=== PATIENT | male | born 1950 | race Caucasian/White ===

== ENCOUNTER 2017-03-03 09:21 | Outpatient (CLI) | payer MEDICARE, SELFPAY | END 2017-03-03 11:36 | PROVIDERS: Family Provider Emergency Medicine; Visit Provider Physician Assistant | DX: Z79.01 Long term (current) use of anticoagulants (principal); I48.91 Unspecified atrial fibrillation; Z51.81 Encounter for therapeutic drug level monitoring | CPT/HCPCS: 85610; 99211; G0463 ==

== ENCOUNTER → 2017-03-09 | Outpatient (CLI) | payer MEDICARE, SELFPAY | PROVIDERS: Visit Provider Internal Medicine | DX: I48.91 Unspecified atrial fibrillation (principal); J44.9 Chronic obstructive pulmonary disease, unspecified; I11.9 Hypertensive heart disease without heart failure; Z72.0 Tobacco use | CPT/HCPCS: 36415; 80048 ==

== ENCOUNTER → 2017-04-10 07:47 | Outpatient (CLI) | payer MEDICARE, SELFPAY ==
[2017-04-10 09:08] LABS: Anion Gap 16.4 mEq/L (5-15); Blood Urea Nitrogen 13 mg/dL (7-18); Carbon Dioxide 27 mmol/L (21.0-32.0); Chloride 102 mmol/L (98-107); Estimated Glomerular Filt Rate 84 ml/min (>60); GFR (African American) 102 ML/MIN (>60); Glucose 96 mg/dL (74-106); Potassium 3.4 mmoL/L (3.5-5.1); Sodium 142 mmol/L (136-145)
== END ==
PROVIDERS: Visit Provider Internal Medicine
DX: R06.02 Shortness of breath (principal); E87.6 Hypokalemia; I48.91 Unspecified atrial fibrillation
CPT/HCPCS: 36415; 80048; 83880

== ENCOUNTER → 2017-04-12 15:21 | Outpatient (CLI) | payer MEDICARE, SELFPAY ==
[2017-04-12 16:23] LABS: PHA INR Fingerstick 2.1 (0.9-1.1)
== END | disposition home or self-care (01) ==
PROVIDERS: Family Provider Emergency Medicine; PCP Physician Assistant; Visit Provider Physician Assistant
DX: Z79.01 Long term (current) use of anticoagulants (principal); I48.91 Unspecified atrial fibrillation; Z51.81 Encounter for therapeutic drug level monitoring
CPT/HCPCS: 85610; 99211; G0463

== ENCOUNTER → 2017-04-19 10:55 | Outpatient (CLI) | payer MEDICARE, SELFPAY ==
[2017-04-19 11:30] LABS: INR 1.24 (0.9-1.1); Prothrombin Time 13.4 seconds (9.4-11.8)
[2017-04-19 13:08] LABS: Thyroid Stimulating Hormone 2.75 uIU/ml (0.358-3.740)
[2017-04-19 13:37] LABS: Anion Gap 16.3 mEq/L (5-15); Blood Urea Nitrogen 16 mg/dL (7-18); Carbon Dioxide 29 mmol/L (21.0-32.0); Chloride 98 mmol/L (98-107); Creatinine,Serum 1.01 mg/dL (0.70-1.30); Estimated Glomerular Filt Rate 74 ml/min (>60); GFR (African American) 89 ML/MIN (>60); Potassium 3.3 mmoL/L (3.5-5.1); Sodium 140 mmol/L (136-145)
[2017-04-19 13:38] LABS: Glucose 96 mg/dL (74-106)
== END ==
PROVIDERS: Physician Assistant; Family Provider Emergency Medicine; PCP Physician Assistant; Referring Provider Otolaryngology; Visit Provider Internal Medicine
DX: Z79.01 Long term (current) use of anticoagulants (principal); Z51.81 Encounter for therapeutic drug level monitoring; E03.9 Hypothyroidism, unspecified
CPT/HCPCS: 36415; 80048; 84439; 84443; 85610; 85730

== ENCOUNTER → 2017-05-03 08:30 | Outpatient (CLI) | payer MEDICARE, SELFPAY ==
[2017-05-03 10:39] LABS: Anion Gap 12.6 mEq/L (5-15); Blood Urea Nitrogen 15 mg/dL (7-18); Carbon Dioxide 31 mmol/L (21.0-32.0); Chloride 100 mmol/L (98-107); Creatinine,Serum 1.04 mg/dL (0.70-1.30); Estimated Glomerular Filt Rate 71 ml/min (>60); GFR (African American) 86 ML/MIN (>60); Glucose 93 mg/dL (74-106); Magnesium 1.8 mg/dL (1.4-2.2); Potassium 3.6 mmoL/L (3.5-5.1); Sodium 140 mmol/L (136-145)
== END ==
PROVIDERS: Family Provider Emergency Medicine; PCP Physician Assistant; Visit Provider Physician Assistant
DX: I48.91 Unspecified atrial fibrillation (principal); J44.9 Chronic obstructive pulmonary disease, unspecified; I25.10 Atherosclerotic heart disease of native coronary artery without angina pectoris; I11.9 Hypertensive heart disease without heart failure; Z95.5 Presence of coronary angioplasty implant and graft; F17.200 Nicotine dependence, unspecified, uncomplicated; G25.81 Restless legs syndrome
CPT/HCPCS: 36415; 80048; 83735

== ENCOUNTER 2017-05-15 14:55 | Outpatient (CLI) | payer MEDICARE, SELFPAY ==
[2017-05-15 15:29] LABS: PHA INR Fingerstick 1.7 (0.9-1.1)
== END 2017-05-15 15:57 | disposition home or self-care (01) ==
LOC: ACC 14:56
PROVIDERS: Family Provider Emergency Medicine; PCP Physician Assistant; Visit Provider Internal Medicine
DX: Z79.01 Long term (current) use of anticoagulants (principal); Z51.81 Encounter for therapeutic drug level monitoring; I48.91 Unspecified atrial fibrillation
CPT/HCPCS: 85610; 99211; G0463

== ENCOUNTER 2017-06-12 15:23 | Outpatient (CLI) | payer MEDICARE, SELFPAY ==
[2017-06-12 16:27] LABS: PHA INR Fingerstick 2.4 (0.9-1.1)
== END 2017-06-12 16:35 | disposition home or self-care (01) ==
LOC: ACC 15:24
PROVIDERS: Family Provider Emergency Medicine; PCP Physician Assistant; Visit Provider Internal Medicine
DX: Z79.01 Long term (current) use of anticoagulants (principal); Z51.81 Encounter for therapeutic drug level monitoring; I48.91 Unspecified atrial fibrillation
CPT/HCPCS: 85610; 99211; G0463

== ENCOUNTER → 2017-07-20 08:24 | Outpatient (CLI) | payer MEDICARE, SELFPAY ==
[2017-07-20 12:18] LABS: Anion Gap 13.5 mEq/L (5-15); Blood Urea Nitrogen 12 mg/dL (7-18); Carbon Dioxide 31 mmol/L (21.0-32.0); Chloride 98 mmol/L (98-107); Creatinine,Serum 0.95 mg/dL (0.70-1.30); Estimated Glomerular Filt Rate 79 ml/min (>60); GFR (African American) 96 ML/MIN (>60); Glucose 100 mg/dL (74-106); Potassium 3.5 mmoL/L (3.5-5.1); Sodium 139 mmol/L (136-145)
== END ==
PROVIDERS: Family Provider Emergency Medicine; PCP Physician Assistant; Visit Provider Urology
DX: I11.0 Hypertensive heart disease with heart failure (principal); I50.9 Heart failure, unspecified; R06.09 Other forms of dyspnea
CPT/HCPCS: 36415; 80048; 83880

== ENCOUNTER 2017-08-08 15:32 | Outpatient (CLI) | payer MEDICARE, SELFPAY ==
[2017-08-08 16:03] LABS: PHA INR Fingerstick 1.8 (0.9-1.1)
== END 2017-08-08 16:05 | disposition home or self-care (01) ==
LOC: ACC 15:35
PROVIDERS: Visit Provider Internal Medicine
DX: Z79.01 Long term (current) use of anticoagulants (principal); Z51.81 Encounter for therapeutic drug level monitoring; I48.91 Unspecified atrial fibrillation
CPT/HCPCS: 85610; 99211; G0463

== ENCOUNTER 2017-10-18 15:16 | Outpatient (CLI) | payer MEDICARE, SELFPAY ==
[2017-10-18 16:05] LABS: PHA INR Fingerstick 2.3 (0.9-1.1)
== END 2017-10-18 16:07 | disposition home or self-care (01) ==
LOC: ACC 15:19
PROVIDERS: Visit Provider Internal Medicine
DX: Z79.01 Long term (current) use of anticoagulants (principal); Z51.81 Encounter for therapeutic drug level monitoring; I48.91 Unspecified atrial fibrillation
CPT/HCPCS: 85610; 99211; G0463

== ENCOUNTER 2017-11-29 15:38 | Outpatient (CLI) | payer MEDICARE, SELFPAY ==
[2017-11-29 16:00] LABS: PHA INR Fingerstick 2.7 (0.9-1.1)
== END 2017-11-29 16:08 | disposition home or self-care (01) ==
LOC: ACC 15:39
PROVIDERS: PCP Physician Assistant; Visit Provider Internal Medicine
DX: Z51.81 Encounter for therapeutic drug level monitoring (principal); Z79.01 Long term (current) use of anticoagulants; I48.91 Unspecified atrial fibrillation
CPT/HCPCS: 85610; 99211; G0463

== ENCOUNTER 2018-01-23 15:30 | Outpatient (CLI) | payer MEDICARE, SELFPAY ==
[2018-01-23 16:06] LABS: PHA INR Fingerstick 2.4 (0.9-1.1)
== END 2018-01-23 16:23 | disposition home or self-care (01) ==
LOC: ACC 15:31
PROVIDERS: PCP Physician Assistant; Visit Provider Internal Medicine
DX: Z51.81 Encounter for therapeutic drug level monitoring (principal); Z79.01 Long term (current) use of anticoagulants; I48.91 Unspecified atrial fibrillation
CPT/HCPCS: 85610; 99211; G0463

== ENCOUNTER 2018-03-20 15:30 | Outpatient (CLI) | payer MEDICARE, SELFPAY ==
[2018-03-20 16:27] LABS: PHA INR Fingerstick 2.9 (0.9-1.1)
== END 2018-03-20 16:28 | disposition home or self-care (01) ==
LOC: ACC 15:33
PROVIDERS: PCP Physician Assistant; Visit Provider Internal Medicine
DX: Z79.01 Long term (current) use of anticoagulants (principal); I48.91 Unspecified atrial fibrillation
CPT/HCPCS: 85610; 99211; G0463

== ENCOUNTER → 2018-04-19 13:23 | Outpatient (CLI) | payer MEDICARE, SELFPAY ==
[2018-04-19 15:02] LABS: T4 (Thyroxine) 10.4 ug/dl (4.7-13.3); Thyroid Stimulating Hormone 3.12 uIU/ml (0.358-3.740)
[2018-04-23 08:35] LABS: Calcitonin <2.0 pg/mL (0.0-8.4)
== END ==
PROVIDERS: Visit Provider Otolaryngology
DX: I48.91 Unspecified atrial fibrillation (principal); E03.9 Hypothyroidism, unspecified
CPT/HCPCS: 36415; 82308; 82310; 84436; 84443

== ENCOUNTER → 2018-04-20 07:34 | Outpatient (CLI) | payer MEDICARE, SELFPAY ==
--- NOTE | 2018-04-20 07:37 | CA_ITS ---
PROCEDURE: 2-D M-mode and color Doppler study INDICATIONS FOR THE TEST: Chest pain COPD+ Heart Murmur Tobacco Smoking+ Palpitations Fatigue Syncope Edema+ Hypertension+Diabetes Mellitus Rheumatic Fever SOB+SANTANA Obesity Hyperlipidemia+ Family History HD Additional History A-FIB,CAD,STENT DIFFCULT WINDOWS R/T BODY HABITUS/OVERLAYING LUNG PATIENT INFORMATION HEIGHT: 71 WEIGHT:257 GENDER: Male B/P:126/85 2-D/M-MODE INTERPRETATION: 2-D MEASUREMENTS OBSERVED VALUES IN CMS Right Ventricular Dimension (RVDd) 4.1 Interventricular Septum (Thickness)(IVsd) 1.0 Left Ventricular Internal Dimensions(LVIDd) 5.5 Left Ventricular Posterior Wall (Thickness)(LVPWd) 0.9 Aortic Root 3.3 Aortic Cusp Separation 1.5 Left Atrial Dimensions (LAD) 5.0 2D 1. Technically difficult study patient's factor and poor acoustic windows 2. The left atrium is moderately enlarged, left ventricle is normal size, mild concentric left ventricular hypertrophy, visually estimated ejection fraction 45-50%, there is marked hypokinesis involving the basal septum and inferobasal and posterobasal wall. 3. The right atrium and right ventricle are moderately enlarged with normal contractility. 4. The aortic valve is thickened and calcified leaflet continue to display mobility. 5. The mitral and tricuspid valve leaflets are minimally thickened and calcified. 6. The pulmonic valve is poorly visualized DOPPLER INTERROGATION: Doppler interrogation of the aortic, mitral and tricuspid valvular presence of moderate mitral and mild tricuspid regurgitation tricuspid regurgitation jet velocity is inadequate for calculation of the right ventricular systolic pressure, diastolic parameters are inconclusive. CONCLUSION: 1. Technically difficult study because of the patient's factors and poor acoustic windows 2. Moderate biatrial enlargement, normal left ventricular size, mild concentric left ventricular hypertrophy, visually estimated ejection fraction 45-50% segmental wall motion abnormality described above, diastolic parameters are inconclusive. 3. Moderate mitral and mild tricuspid regurgitation 4. No significant pericardial effusion noted.
== END ==
PROVIDERS: PCP Physician Assistant; Visit Provider Nurse Practitioner Family
DX: E78.5 Hyperlipidemia, unspecified (principal); F17.200 Nicotine dependence, unspecified, uncomplicated; I11.9 Hypertensive heart disease without heart failure; I25.10 Atherosclerotic heart disease of native coronary artery without angina pectoris; I48.91 Unspecified atrial fibrillation; J44.9 Chronic obstructive pulmonary disease, unspecified; R06.02 Shortness of breath; R60.9 Edema, unspecified; Z95.5 Presence of coronary angioplasty implant and graft
CPT/HCPCS: 93306

== ENCOUNTER 2018-05-15 15:31 | Outpatient (CLI) | payer MEDICARE, SELFPAY ==
[2018-05-15 16:02] LABS: PHA INR Fingerstick 2.2 (0.9-1.1)
== END 2018-05-15 16:03 | disposition home or self-care (01) ==
LOC: ACC 15:33
PROVIDERS: Physician Assistant; PCP Physician Assistant; Visit Provider Internal Medicine
DX: Z51.81 Encounter for therapeutic drug level monitoring (principal); Z79.01 Long term (current) use of anticoagulants; I48.91 Unspecified atrial fibrillation
CPT/HCPCS: 85610; 99211; G0463

== ENCOUNTER → 2018-05-18 06:17 | Outpatient (CLI) | payer MEDICARE, SELFPAY ==
--- NOTE | 2018-05-18 09:20 | NM_ITS ---
History and Indications: Coronary artery disease, hypertension, tobacco use, preop cardiovascular risk assessment Procedure: Patient received 0.4 mg of intravenous Lexiscan, resting heart rate was 54 beats prominent resting blood pressure 124/61, with Lexiscan maximum heart rate achieved was 79 bpm which is less than 85% of the maximum predicted heart rate and a blood pressure was 97/49. With Lexiscan patient denied any complained of chest pain. Electrocardiogram: Single electrocardiogram showed atrial fibrillation nonspecific ST-T changes, with Lexiscan there is less than 1.[address] segment depression noted from the baseline EKG. The EKG portion of the Lexiscan Myoview is nondiagnostic. Cardiac stress and resting SPECT images: Stress and resting SPECT images were obtained using technetium 99 Myoview 32.3 mCi stress and 10.0 mCi at rest. Gated SPECT further analysis of segmental wall motion and calculation of the ejection fraction also done. Cardiac stress and resting SPECT images show a fixed defect involving the inferior apical wall with normal contractility in the gated SPECT is likely secondary to soft tissue attenuation, no reversible ischemia seen. Computer derived ejection fraction is 62% with no regional wall motion abnormality, right ventricle is normal size and contractility. Conclusion: 1. The EKG portion of the Lexiscan Myoview is nondiagnostic. 2. No scintigraphic evidence of reversible ischemia seen, computer derived ejection fraction is 62% with no regional wall motion abnormality, right ventricle is normal size and contractility. 3. Normal Lexiscan Myoview study.
--- NOTE | 2018-05-18 10:03 | HMH.ITSHM ---
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 []warfarin levothyroxine losartan ropinirole atrvastatin asa trazodone furosemide methocarbamol
== END ==
PROVIDERS: PCP Physician Assistant; Visit Provider Internal Medicine Cardiovascular Disease
DX: F17.200 Nicotine dependence, unspecified, uncomplicated (principal); I11.9 Hypertensive heart disease without heart failure; I25.10 Atherosclerotic heart disease of native coronary artery without angina pectoris; I48.91 Unspecified atrial fibrillation; J44.9 Chronic obstructive pulmonary disease, unspecified; R06.02 Shortness of breath; Z95.5 Presence of coronary angioplasty implant and graft
CPT/HCPCS: 78452; 93017; A9502; J2785

== ENCOUNTER 2018-07-17 15:29 | Outpatient (CLI) | payer MEDICARE, SELFPAY ==
[2018-07-17 15:50] LABS: PHA INR Fingerstick 2.9 (0.9-1.1)
== END 2018-07-17 15:51 | disposition home or self-care (01) ==
LOC: ACC 15:31
PROVIDERS: PCP Physician Assistant; Visit Provider Internal Medicine
DX: Z51.81 Encounter for therapeutic drug level monitoring (principal); Z79.01 Long term (current) use of anticoagulants; I48.91 Unspecified atrial fibrillation
CPT/HCPCS: 85610; 99211; G0463

== ENCOUNTER 2018-10-23 15:22 | Outpatient (CLI) | payer MEDICARE, SELFPAY | END 2018-10-23 15:44 | disposition home or self-care (01) | PROVIDERS: PCP Physician Assistant; Visit Provider Internal Medicine | DX: Z51.81 Encounter for therapeutic drug level monitoring (principal); Z79.01 Long term (current) use of anticoagulants; I48.91 Unspecified atrial fibrillation | CPT/HCPCS: 85610; 99211; G0463 ==

== ENCOUNTER 2018-12-17 10:48 | Outpatient (CLI) | payer MEDICARE, SELFPAY ==
[2018-12-17 13:51] LABS: PHA INR Fingerstick 2.6 (0.9-1.1)
== END 2018-12-17 13:53 | disposition home or self-care (01) ==
PROVIDERS: Physician Assistant; PCP Physician Assistant; Visit Provider Internal Medicine
DX: Z51.81 Encounter for therapeutic drug level monitoring (principal); Z79.01 Long term (current) use of anticoagulants; I48.91 Unspecified atrial fibrillation
CPT/HCPCS: 85610; 99211; G0463

== ENCOUNTER 2019-02-11 14:41 | Outpatient (CLI) | payer MEDICARE, SELFPAY ==
[2019-02-11 15:35] LABS: PHA INR Fingerstick 2.2 (0.9-1.1)
== END 2019-02-11 15:42 | disposition home or self-care (01) ==
PROVIDERS: PCP Physician Assistant; Visit Provider Physician Assistant
DX: Z51.81 Encounter for therapeutic drug level monitoring (principal); Z79.01 Long term (current) use of anticoagulants; I48.91 Unspecified atrial fibrillation
CPT/HCPCS: 85610; 99211; G0463

== ENCOUNTER → 2019-03-25 14:06 | Outpatient (CLI) | payer MEDICARE, SELFPAY ==
[2019-03-25 15:05] LABS: Prostate Specific Ag Screen 0.5 ng/mL (0.0-4.0)
== END ==
PROVIDERS: Visit Provider Urology
DX: Z12.5 Encounter for screening for malignant neoplasm of prostate (principal)
CPT/HCPCS: 36415; G0103

== ENCOUNTER 2019-04-09 15:22 | Outpatient (CLI) | payer MEDICARE, SELFPAY ==
[2019-04-09 15:46] LABS: PHA INR Fingerstick 2.1 (0.9-1.1)
--- NOTE | 2019-07-04 15:35 | HMH.PHAINT ---
ACC-SPOKE WITH ON PHONE TODAY. PATIENT IS POST OP AT THIS POINT AND RESTARTED WARFARIN TODAY. HAVING PATIENT TAKE 5 MG DAILY X1 WEEK, THEN SWITCH TO PREVIOUS DOSE OF WARFARIN 5 MG ON MON/MON/MON; 4 MG ON MON/MON/MON/MON. WILL FOLLOW UP IN 2 WEEKS ONCE INR HAS HAD TIME TO STABILIZED. SPOUSE INDICATED PATIENT STILL HAD SOME SEEPAGE FROM SURGICAL SITE. CAUTIONED HER ABOUT WATCHING FOR ANY CHANGES IN THIS WITH RESTARTING WARFARIN. MD UPON DISCHARGE DID NOT ORDER ANY LOVENOX AND REPORTED HE HAD HAD NO LOVENOX INPATIENT AFTER SURGERY. PATIENT ONLY HAD LOVENOX PRIOR TO SURGERY AFTER STOPPING WARFARIN.
== END 2019-04-09 15:51 | disposition home or self-care (01) ==
LOC: ACC 15:24
PROVIDERS: PCP Physician Assistant; Visit Provider Physician Assistant
DX: Z51.81 Encounter for therapeutic drug level monitoring (principal); Z79.01 Long term (current) use of anticoagulants; I48.91 Unspecified atrial fibrillation
CPT/HCPCS: 85610; 99211; G0463

== ENCOUNTER → 2019-05-09 08:58 | Outpatient (CLI) | payer MEDICARE, SELFPAY ==
--- NOTE | 2019-05-09 09:07 | XR_ITS ---
PROCEDURE: XR CERVICAL SPINE 2V CLINICAL INDICATION: S/P FUSION Follow-up surgery, pain COMPARISON: No exams were available for comparison FINDINGS: There is normal alignment. Anterior bone plate is present at C5-C6 and C7 with good alignment. No abnormal subluxation. Facet arthritic changes are present C3-C4 C5 and C6. There is minimal anterolisthesis of C4 on 5 of 3 mm. The there is diffuse bilateral carotid artery calcification. IMPRESSION: 1. Status post anterior cervical disc fusion C5-C6 and C7 with good alignment. 2. Facet arthritic changes Dictated by: Abdi Hinojosa MD 05/09/2019 12:04 Electronically signed by Abdi Hinojosa MD in [place] 05/09/2019 12:04
[2019-05-09 11:36] LABS: Alanine Aminotransferase 28 U/L (12-78); Albumin Level 4.2 g/dl (3.5-5.0); Alkaline Phosphatase 79 U/L (38-126); Aspartate Amino Transferase 31 U/L (17-59); Bilirubin,Unconjugated 1.1 mg/dL (0.0-1.1); Chol/HDL Ratio 2.6 (1-3.5); Cholesterol 116 mg/dl (140-200); HDL Cholesterol 45 mg/dl (40-60); Total Protein,Serum 7.2 g/dl (6.3-8.2); Triglycerides 97 mg/dl (30-150); VLDL Cholesterol 19 mg/dL (0-40)
[2019-05-09 11:49] LABS: Direct LDL Cholesterol 58.19 mg/dL (100-129)
== END ==
PROVIDERS: Nurse Practitioner Family; PCP Physician Assistant; Visit Provider Physician Assistant
DX: E78.5 Hyperlipidemia, unspecified (principal); I11.9 Hypertensive heart disease without heart failure; M48.062 Spinal stenosis, lumbar region with neurogenic claudication; Z98.890 Other specified postprocedural states
CPT/HCPCS: 36415; 72040; 80061; 80076

== ENCOUNTER 2019-07-19 13:36 | Outpatient (CLI) | payer MEDICARE, OTHER, SELFPAY ==
[2019-07-19 14:02] LABS: PHA INR Fingerstick 2.2 (0.9-1.1)
== END 2019-07-19 14:06 | disposition home or self-care (01) ==
LOC: ACC 13:40
PROVIDERS: Visit Provider Internal Medicine
DX: Z51.81 Encounter for therapeutic drug level monitoring (principal); Z79.01 Long term (current) use of anticoagulants; I48.91 Unspecified atrial fibrillation
CPT/HCPCS: 85610; 99211; G0463

== ENCOUNTER 2019-09-12 15:20 | Outpatient (CLI) | payer MEDICARE, SELFPAY ==
[2019-09-12 15:42] LABS: PHA INR Fingerstick 2.2 (0.9-1.1)
== END 2019-09-12 15:43 | disposition home or self-care (01) ==
PROVIDERS: PCP Physician Assistant; Visit Provider Physician Assistant
DX: Z79.01 Long term (current) use of anticoagulants (principal); Z51.81 Encounter for therapeutic drug level monitoring; I48.91 Unspecified atrial fibrillation
CPT/HCPCS: 85610; 99211; G0463

== ENCOUNTER → 2019-10-15 15:12 | Outpatient (CLI) | payer MEDICARE, SELFPAY ==
[2019-10-15 16:15] LABS: Free T4 (Free Thyroxine) 1.29 ng/dl (0.78-2.19)
[2019-10-15 16:28] LABS: Thyroid Stimulating Hormone 3.48 uIU/mL (0.465-4.68)
== END ==
PROVIDERS: Visit Provider Otolaryngology
DX: E06.9 Thyroiditis, unspecified (principal)
CPT/HCPCS: 36415; 84439; 84443

== ENCOUNTER 2019-11-13 15:19 | Outpatient (CLI) | payer MEDICARE, OTHER, SELFPAY | END 2019-11-13 15:54 | disposition home or self-care (01) | PROVIDERS: PCP Physician Assistant; Visit Provider Physician Assistant | DX: Z51.81 Encounter for therapeutic drug level monitoring (principal); Z79.01 Long term (current) use of anticoagulants; I48.91 Unspecified atrial fibrillation | CPT/HCPCS: 85610; 99211; G0463 ==

== ENCOUNTER 2020-01-08 15:25 | Outpatient (CLI) | payer MEDICARE, OTHER, SELFPAY ==
[2020-01-08 16:01] LABS: PHA INR Fingerstick 2.4 (0.9-1.1)
== END 2020-01-08 16:02 | disposition home or self-care (01) ==
LOC: ACC 15:26
PROVIDERS: PCP Physician Assistant; Visit Provider Physician Assistant
DX: Z51.81 Encounter for therapeutic drug level monitoring (principal); Z79.01 Long term (current) use of anticoagulants; I48.91 Unspecified atrial fibrillation
CPT/HCPCS: 85610; 99211; G0463

== ENCOUNTER 2020-02-08 11:15 | Emergency (ER) | payer MEDICARE, OTHER, SELFPAY ==
[2020-02-08 11:55] VITALS: BP 128/70; PULSE 72; RESP 21; TEMP 36.8; O2SAT 96; BMI 34.2
--- NOTE | 2020-02-08 11:59 | HMH.EDUTC ---
[facility] [place] Clinical Impression: Exposure to COVID-19 virus Disposition: Home, Self-Care Condition on Discharge: Good Instructions: Preventing the Spread of Coronavirus Discharge Instructions Additional Instructions: *Monitor Temp, Over the counter Motrin or Tylenol as directed/as needed Tylenol every 4 hours and Motrin every 6 hours (as long as your family doctor has told you that you can take it) for fever or pain. and straight to ER if unable to lower temp less than 101.0 after medication given *Warm salt water gargles may help to soothe the throat *Throat Lozenges *Warm fluids like tea with honey may help to soothe the throat *Sleep elevated *Humidifier/Vaporizer Follow up IMMEDIATELY for new or worsening symptoms or no Noticeable improvement over the next 48-72 hours. 911 for difficulty breathing or swallowing You was tested for today for COVID19 your test result should be back in the next 24-48 hours, you may call to the [facility] later today or tomorrow to see if your test results are back and the result [phone] [facility] hours are 9am-9pm You was given a handout with instructions for Self Quarantine and Self isolation for while you wait on test results and what to do if they are positive If you are positive the Health Dept will be contacting you also Referrals: Robb Ramos PA [Primary Care Provider] - As needed Time of Disposition: 12:01 Medical Decision Making - Cipriano Inquiry Pt receiving controlled substance: No Cipriano was queried for this patient: No Vital Signs: 02/08/20 11:55 Temperature 98.3 F Temperature Source Oral Pulse Rate [Radial] 72 Respiratory Rate 21 Blood Pressure [Right Arm] 128/70 Blood Pressure Mean [Right Arm] 89 Blood Pressure Source [Right Arm] Automatic Cuff Blood Pressure Position [Right Arm] Sitting 02 Sat by Pulse Oximetry 96 Oxygen Delivery Method Room Air Orders (Tests/Meds): ORDERS Category Date Time Status Covid-19 Nasal PCR ([facility]) Routine Lab 02/08/20 11:46 Ordered [facility] [place] - General Stated complaint: covid test Time Seen by Provider: 02/08/20 11:59 Mode of Arrival: Ambulatory Source of Information: Patient Limitations: No Limitations Description of Symptoms (Recalled from Triage Doc. by RN): covid test, no symtoms HEENT Symptoms (Recalled from RN notes): No Resp Symptoms (Recalled from RN notes): No Skin Symptoms (Recalled from RN notes): No MS Symptoms (Recalled from RN notes): No Functional Status (Recalled from RN notes): wnl - History of Present Illness Provider Complaint: Patient state that tested positive for COVID yesterday States that he is not having any symptoms but wanted to get tested State that he has been around her but since testing positive she has located into different area of the house Denies any symptoms - Related Data Home Medications Medication Instructions Recorded Confirmed aspirin 81 mg tablet,delayed 81 mg PO QDAY 04/07/17 10/22/19 release bupropion HCl 150 mg tablet,12 hr 150 mg PO BID 04/07/17 10/22/19 sustained-release methocarbamol 500 mg tablet 1,000 mg PO QDAY tab 04/07/17 10/22/19 sildenafil 50 mg tablet 50 mg PO QDAY PRN 04/07/17 10/22/19 tamsulosin 0.4 mg capsule 0.4 mg PO QDAY 04/07/17 10/22/19 warfarin 5 mg tablet 5 mg PO QDAY 04/07/17 10/22/19 trazodone 50 mg tablet 50 mg PO QHS PRN 04/11/17 10/22/19 gabapentin 300 mg capsule PO 10/22/19 10/22/19 Previous Rx's Medication Instructions Recorded losartan 100 1 tab PO QDAY #90 tab 02/26/19 mg-hydrochlorothiazide 25 mg tablet enoxaparin 120 mg/0.8 mL 120 mg SQ Q12H #16 ml 06/14/19 subcutaneous syringe warfarin 4 mg tablet 4 mg PO QDAY #90 tab 07/11/19 digoxin 125 mcg (0.125 mg) tablet See Rx Instructions .ROUTE 09/20/19 .COMPLEX #30 tab ropinirole 2 mg tablet 2 mg PO BID #60 tab 09/30/19 levothyroxine 125 mcg tablet 125 mcg PO DAILY #90 tab 10/22/19 potassium chloride 20 mEq 20 meq PO QID #360 tab 12/10/19 tablet,extended
[2020-02-08 12:29] VITALS: BP 128/70; PULSE 72; RESP 19; TEMP 36.8; O2SAT 96
== END 2020-02-08 12:02 | disposition home or self-care (01) ==
PROVIDERS: Emergency Provider Nurse Practitioner; PCP Physician Assistant
DX: Z20.828 Contact with and (suspected) exposure to other viral communicable diseases (principal); I48.20 Chronic atrial fibrillation, unspecified; J44.9 Chronic obstructive pulmonary disease, unspecified; I25.10 Atherosclerotic heart disease of native coronary artery without angina pectoris; E11.9 Type 2 diabetes mellitus without complications; E78.5 Hyperlipidemia, unspecified; I10 Essential (primary) hypertension; F17.210 Nicotine dependence, cigarettes, uncomplicated; Z79.899 Other long term (current) drug therapy
CPT/HCPCS: G0463; 99201; U0003

== ENCOUNTER 2020-03-04 15:16 | Outpatient (CLI) | payer MEDICARE, OTHER, SELFPAY ==
[2020-03-04 16:00] LABS: PHA INR Fingerstick 2.8 (0.9-1.1)
== END 2020-03-04 16:01 | disposition home or self-care (01) ==
LOC: ACC 15:18
PROVIDERS: Physician Assistant; PCP Physician Assistant; Visit Provider Internal Medicine
DX: Z51.81 Encounter for therapeutic drug level monitoring (principal); Z79.01 Long term (current) use of anticoagulants; I48.91 Unspecified atrial fibrillation
CPT/HCPCS: 85610; 99211; G0463

== ENCOUNTER → 2020-04-27 09:50 | Outpatient (CLI) | payer MEDICARE, OTHER, SELFPAY ==
[2020-04-27 11:21] LABS: Thyroid Stimulating Hormone 2.76 uIU/mL (0.465-4.68)
[2020-04-27 16:49] LABS: Free T4 (Free Thyroxine) 1.46 ng/dl (0.78-2.19)
== END ==
PROVIDERS: Visit Provider Otolaryngology
DX: E03.9 Hypothyroidism, unspecified (principal)
CPT/HCPCS: 36415; 84439; 84443

== ENCOUNTER 2020-05-05 15:13 | Outpatient (CLI) | payer MEDICARE, OTHER, SELFPAY ==
[2020-05-05 16:11] LABS: PHA INR Fingerstick 2.9 (0.9-1.1)
== END 2020-05-05 16:15 | disposition home or self-care (01) ==
LOC: ACC 15:16
PROVIDERS: PCP Physician Assistant; Visit Provider Physician Assistant
DX: Z51.81 Encounter for therapeutic drug level monitoring (principal); Z79.01 Long term (current) use of anticoagulants
CPT/HCPCS: 85610; 99211; G0463

== ENCOUNTER → 2020-05-14 09:59 | Outpatient (CLI) | payer MEDICARE, OTHER, SELFPAY ==
--- NOTE | 2020-05-14 10:01 | CA_ITS ---
APPROVED REPORT Avid Editor: Lucie Sharpe RVT Laterality: Bilateral Study Quality: Good Indications: right carotid bruit Doppler Spectral Velocity Analysis ECA (R) 149.30/16.40 cm/s ECA (L) 229.60/24.00 cm/s dICA (R) 47.50/14.10 cm/s dICA (L) 62.50/12.90 cm/s Betsy (R) 54.80/20.60 cm/s Betsy (L) 63.10/20.30 cm/s pICA (R) 78.10/26.70 cm/s pICA (L) 116.60/29.50 cm/s dCCA (R) 112.30/16.00 cm/s dCCA (L) 84.50/15.70 cm/s pCCA (R) 146.50/19.20 cm/s pCCA (L) 67.30/13.50 cm/s Vert (R) 34.40/12.00 cm/s Vert (L) 42.00/9.40 cm/s ICA/CCA 0.70 ICA/CCA 1.40 Findings Duplex evaluation (visually) demonstrates stenosis of the right proximal internal carotid artery in the range of 20-49% with PSV <140 cm/sec, EDV <100 cm/sec, and IC/CC Ratio <4.0.Duplex evaluation demonstrates(visually) stenosis of the left proximal internal carotid artery in the range of 20-49%(upper end of scale) with PSV <140 cm/sec, EDV <100 cm/sec, and IC/CC Ratio <4.0. Bilateral ECA's greater than 50% Conclusion Duplex evaluation (visually) demonstrates stenosis of the right proximal internal carotid artery in the range of 20-49% with PSV <140 cm/sec, EDV <100 cm/sec, and IC/CC Ratio <4.0.Duplex evaluation demonstrates(visually) stenosis of the left proximal internal carotid artery in the range of 20-49%(upper end of scale) with PSV <140 cm/sec, EDV <100 cm/sec, and IC/CC Ratio <4.0. Bilateral ECA's greater than 50% Electronically signed by : Abdi Hinojosa MD 05/14/2020 18:59:45
== END ==
PROVIDERS: PCP Physician Assistant; Visit Provider Physician Assistant
DX: R09.89 Other specified symptoms and signs involving the circulatory and respiratory systems (principal)
CPT/HCPCS: 93880

== ENCOUNTER 2020-06-30 15:06 | Outpatient (CLI) | payer MEDICARE, OTHER, SELFPAY ==
[2020-06-30 16:22] LABS: PHA INR Fingerstick 2.8 (0.9-1.1)
== END 2020-06-30 16:26 | disposition home or self-care (01) ==
LOC: ACC 15:07
PROVIDERS: PCP Physician Assistant; Visit Provider Physician Assistant
DX: Z51.81 Encounter for therapeutic drug level monitoring (principal); Z79.01 Long term (current) use of anticoagulants; I48.91 Unspecified atrial fibrillation
CPT/HCPCS: 85610; 99211; G0463

== ENCOUNTER 2020-08-25 13:54 | Outpatient (CLI) | payer MEDICARE, OTHER, SELFPAY ==
[2020-08-25 15:59] LABS: PHA INR Fingerstick 3.2 (0.9-1.1)
== END 2020-08-25 16:00 | disposition home or self-care (01) ==
LOC: ACC 13:56
PROVIDERS: PCP Physician Assistant; Visit Provider Physician Assistant
DX: Z51.81 Encounter for therapeutic drug level monitoring (principal); Z79.01 Long term (current) use of anticoagulants
CPT/HCPCS: 85610; 99211; G0463

== ENCOUNTER → 2020-09-08 10:53 | Outpatient (CLI) | payer MEDICARE, OTHER, SELFPAY | PROVIDERS: PCP Physician Assistant; Visit Provider Physician Assistant | DX: R06.02 Shortness of breath (principal) | CPT/HCPCS: 93225 ==

== ENCOUNTER → 2020-09-16 13:04 | Outpatient (CLI) | payer MEDICARE, OTHER, SELFPAY | PROVIDERS: PCP Physician Assistant; Visit Provider Physician Assistant | DX: F17.200 Nicotine dependence, unspecified, uncomplicated (principal); I11.9 Hypertensive heart disease without heart failure; I25.10 Atherosclerotic heart disease of native coronary artery without angina pectoris; I42.9 Cardiomyopathy, unspecified; I48.91 Unspecified atrial fibrillation; R06.02 Shortness of breath; R09.89 Other specified symptoms and signs involving the circulatory and respiratory systems; Z95.5 Presence of coronary angioplasty implant and graft | CPT/HCPCS: 93306 ==

== ENCOUNTER → 2020-09-22 10:13 | Outpatient (CLI) | payer MEDICARE, OTHER, SELFPAY ==
[2020-09-22 10:57] LABS: Chloride 96 mmol/L (98-107); Sodium 136 mmol/L (136-145)
[2020-09-22 10:58] LABS: Potassium 4.2 mmoL/L (3.5-5.1)
[2020-09-22 11:01] LABS: Anion Gap 14.2 mEq/L (5-15); Blood Urea Nitrogen 7 mg/dl (9-20); Calcium 8.9 mg/dl (8.4-10.2); Carbon Dioxide 30 mmol/L (22.0-30.0); Estimated Glomerular Filt Rate 111 ml/min (>60); GFR (African American) 135 ML/MIN (>60); Glucose 120 mg/dl (74-100)
== END ==
PROVIDERS: Visit Provider Nurse Practitioner Family
DX: F17.200 Nicotine dependence, unspecified, uncomplicated (principal); I11.9 Hypertensive heart disease without heart failure; I25.10 Atherosclerotic heart disease of native coronary artery without angina pectoris; I42.9 Cardiomyopathy, unspecified; I48.91 Unspecified atrial fibrillation; R06.00 Dyspnea, unspecified; R06.02 Shortness of breath; R09.89 Other specified symptoms and signs involving the circulatory and respiratory systems; R55 Syncope and collapse; Z95.5 Presence of coronary angioplasty implant and graft
CPT/HCPCS: 36415; 80048

== ENCOUNTER → 2020-10-19 08:59 | Outpatient (CLI) | payer MEDICARE, OTHER, SELFPAY ==
[2020-10-19 10:23] LABS: Chloride 99 mmol/L (98-107); Sodium 136 mmol/L (136-145)
[2020-10-19 10:26] LABS: Blood Urea Nitrogen 10 mg/dl (9-20); Estimated Glomerular Filt Rate 111 ml/min (>60); GFR (African American) 135 ML/MIN (>60)
[2020-10-19 10:27] LABS: Calcium 8.7 mg/dl (8.4-10.2); Carbon Dioxide 28 mmol/L (22.0-30.0); Glucose 106 mg/dl (74-100)
== END ==
PROVIDERS: Visit Provider Nurse Practitioner Family
DX: I48.21 Permanent atrial fibrillation (principal); R06.02 Shortness of breath; R60.0 Localized edema
CPT/HCPCS: 36415; 80048

== ENCOUNTER 2020-10-20 15:25 | Outpatient (CLI) | payer MEDICARE, OTHER, SELFPAY ==
[2020-10-20 16:15] LABS: PHA INR Fingerstick 3.1 (0.9-1.1)
== END 2020-10-20 16:19 | disposition home or self-care (01) ==
LOC: ACC 15:27
PROVIDERS: PCP Physician Assistant; Visit Provider Physician Assistant
DX: Z51.81 Encounter for therapeutic drug level monitoring (principal); Z79.01 Long term (current) use of anticoagulants; I48.91 Unspecified atrial fibrillation
CPT/HCPCS: 85610; 99211; G0463

== ENCOUNTER → 2020-11-13 06:54 | Outpatient (CLI) | payer MEDICARE, OTHER, SELFPAY ==
--- NOTE | 2020-11-13 06:56 | CT_ITS ---
PROCEDURE: CT LUNG SCREENING CLINICAL INDICATION: lung cancer screening COMPARISON: CT CHW CT CHEST W/ CONTRAST from 07/11/2016 TECHNIQUE: The exam was performed on a GE Light Speed [address] scanner using 2.90 mGy CTDI. A low dose helical CT CHEST was performed on a multi-detector scanner. All CT scans at the facility use one or more dose reduction, viz: automated exposure control, ma/kV adjustment per patient size (including targeted exams where dose is matched to indication, i.e. head), or iterative reconstruction technique. The LDCT was performed in a facility that meets the criteria for the screening program. Data regarding this exam was submitted to ACR which is an approved registry. The order for this exam indicates that it came as a result of a lung cancer screening counseling shard decision-making visit that included all the elements required of such a visit including smoking cessation. The radiologist interpreting this exam meets the [facility] criteria for the LDCT lung cancer screening program. The exam is reported using the Lung-RADS classification scale and reported to the ACR registry. NOTE: This study was performed for the specific purposes of lung cancer screening and is not an alternative to diagnostic chest CT. RADIATION DOSE: CTDI vol(CT dose Index-volume) = 2.90mG DLP (Dose Length Product) = 112.81 mGcm FINDINGS: COPD changes with a few areas of scarring evidence of old granulomatous disease. OTHER FINDINGS: Severe coronary artery calcifications with cardiomegaly and mild pericardial thickening. The pericardial thickening is not significantly changed. There is mild fusiform dilatation of the ascending aorta at 4.5 cm. This has slightly increased previously at 4.3 cm. IMPRESSION: Lung-RADS Category 2 Benign Appearance or Behavior Follow-up: Continue annual screening with LDCT in 12 months Mild fusiform dilatation of the ascending aorta is slightly increased now at 4.5 cm Severe coronary artery calcification. Dictated by: Abdi Hinojosa MD 11/15/2020 12:21 Abdi Hinojosa MD in [place] 11/15/2020 12:23
[2020-11-13 08:00] VITALS: PULSE 70; PULSE 71
--- NOTE | 2020-11-13 08:32 | PC.NURSE ---
Mr. Reid refused to do the 6MWT due to severe back pain. Stated that just walking back to the PFT room he was already in pain.
== END ==
PROVIDERS: PCP Physician Assistant; Visit Provider Internal Medicine Pulmonary Disease
DX: Z87.891 Personal history of nicotine dependence (principal); Z12.2 Encounter for screening for malignant neoplasm of respiratory organs; R06.02 Shortness of breath
CPT/HCPCS: 71271; 94060; 94640; 94726; 94729

== ENCOUNTER 2021-01-05 15:16 | Outpatient (CLI) | payer MEDICARE, OTHER, SELFPAY ==
[2021-01-05 15:49] LABS: PHA INR Fingerstick 1.8 (0.9-1.1)
== END 2021-01-05 16:01 | disposition home or self-care (01) ==
LOC: ACC 15:18
PROVIDERS: PCP Physician Assistant; Visit Provider Physician Assistant
DX: Z79.01 Long term (current) use of anticoagulants (principal); Z51.81 Encounter for therapeutic drug level monitoring
CPT/HCPCS: 85610; 99211; G0463

== ENCOUNTER 2021-02-16 15:18 | Outpatient (CLI) | payer MEDICARE, OTHER, SELFPAY | END 2021-02-16 15:47 | disposition home or self-care (01) | LOC: ACC 15:21 | PROVIDERS: PCP Physician Assistant; Visit Provider Physician Assistant | DX: Z51.81 Encounter for therapeutic drug level monitoring (principal); Z79.01 Long term (current) use of anticoagulants; I48.91 Unspecified atrial fibrillation | CPT/HCPCS: 85610; 99211; G0463 ==

== ENCOUNTER 2021-04-13 14:42 | Outpatient (CLI) | payer MEDICARE, OTHER, SELFPAY ==
[2021-04-13 15:49] LABS: PHA INR Fingerstick 2.3 (0.9-1.1)
== END 2021-04-13 15:53 | disposition home or self-care (01) ==
LOC: ACC 14:44
PROVIDERS: PCP Physician Assistant; Visit Provider Physician Assistant
DX: Z51.81 Encounter for therapeutic drug level monitoring (principal); Z79.01 Long term (current) use of anticoagulants; I48.91 Unspecified atrial fibrillation
CPT/HCPCS: 85610; 99211; G0463

== ENCOUNTER → 2021-04-27 09:19 | Outpatient (CLI) | payer MEDICARE, OTHER, SELFPAY ==
[2021-04-27 10:03] LABS: Basophils # 0.1 K/mm3 (0-0.2); Eosinophils # 0.1 K/mm3 (0.0-0.4); Eosinophils % 1.8 % (0.1-12.0); Hematocrit 45.9 % (42.0-52.0); Hemoglobin 15.4 g/dL (14.1-18.0); Lymphocytes # 2.3 K/mm3 (0.7-4.5); Lymphocytes % 29.2 % (10-50); Mean Corpuscular HGB Conc 33.6 g/dL (31.8-35.4); Mean Corpuscular Hemoglobin 31.3 pg (27.0-31.2); Mean Corpuscular Volume 93.3 fl (80-94); Mean Platelet Volume 8.3 fl (7.4-10.4); Monocytes # 0.5 K/mm3 (0.1-1.0); Monocytes % 6.9 % (1.7-9.3); Neutrophils # 4.8 K/mm3 (1.8-7.8); Neutrophils % 61.1 % (37.0-80.0); Platelet Count 275 K/mm3 (142-424); Red Blood Count 4.92 M/mm3 (4.60-6.20); Red Cell Distribution Width 14.9 % (11.5-17.5); White Blood Count 7.9 K/mm3 (4.8-10.8)
[2021-04-27 10:43] LABS: Chloride 98 mmol/L (98-107); Sodium 133 mmol/L (136-145)
[2021-04-27 10:45] LABS: Alanine Aminotransferase 26 U/L (12-78); Aspartate Amino Transferase 30 U/L (17-59); Blood Urea Nitrogen 12 mg/dl (9-20); Estimated Glomerular Filt Rate 95 ml/min (>60); GFR (African American) 115 ML/MIN (>60)
[2021-04-27 10:46] LABS: Albumin Level 4.4 g/dl (3.5-5.0); Albumin/Globulin Ratio 1.5 (1.1-1.8); Alkaline Phosphatase 93 U/L (38-126); Bilirubin,Total 1.1 mg/dl (0.2-1.3); Carbon Dioxide 28 mmol/L (22.0-30.0); Cholesterol 102 mg/dl (140-200); Glucose 106 mg/dl (74-100); HDL Cholesterol 51 mg/dl (40-60); Total Protein,Serum 7.4 g/dl (6.3-8.2); Triglycerides 66 mg/dl (30-150); VLDL Cholesterol 13 mg/dL (0-40)
[2021-04-27 10:47] LABS: Free T4 (Free Thyroxine) 1.74 ng/dl (0.78-2.19)
[2021-04-27 11:00] LABS: Thyroid Stimulating Hormone 3.72 uIU/mL (0.465-4.68)
[2021-04-27 11:43] LABS: Prostate Specific Ag Screen 0.5 ng/ml (0.0-4.0)
== END ==
PROVIDERS: Otolaryngology; PCP Physician Assistant; Visit Provider Family Medicine
DX: R60.9 Edema, unspecified (principal); I10 Essential (primary) hypertension; I25.10 Atherosclerotic heart disease of native coronary artery without angina pectoris; E78.2 Mixed hyperlipidemia; Z12.5 Encounter for screening for malignant neoplasm of prostate
CPT/HCPCS: 36415; 80053; 80061; 84439; 84443; 85025; G0103

== ENCOUNTER 2021-05-09 10:45 | Emergency (ER) | payer MEDICARE, OTHER, SELFPAY ==
[2021-05-09] VITALS (7 sets, daily range): BP systolic 114–151; BP diastolic 70–80; PULSE 53–78; RESP 20–32; TEMP 36.6–36.8; O2SAT 91–96; BMI 36.2
--- NOTE | 2021-05-09 10:55 | ECG_ITS ---
APPROVED REPORT Exam: Resting ECG HR:67 bpm ECG Measurements Heart Rate 67 AXES QRSd 106 QRS 35 QT 396 T 120 QTc 411 Conclusion ATRIAL FIBRILLATION ABNORMAL QRS-T ANGLE [QRS-T AXIS DIFFERENCE > 60] ABNORMAL ECG UNCONFIRMED REPORT Electronically signed by : Lj Medina MD 05/09/2021 14:14:39
--- NOTE | 2021-05-09 10:55 | PC.NURSE ---
EKG Done and gave to Dr. Barreto
--- NOTE | 2021-05-09 10:58 | XR_ITS ---
PROCEDURE INFORMATION: Exam: XR Chest Exam date and time: 05/09/2021 10:58 AM Age: 70 years old Clinical indication: Shortness of breath; Additional info: SOB TECHNIQUE: Imaging protocol: XR of the chest. Views: 1 view. COMPARISON: [facility] CT CHEST W/ CONTRAST 01/06/2016 9:13 AM FINDINGS: Lungs: There is mild atelectasis in the lung bases. No consolidation. Pleural spaces: Unremarkable. No pleural effusion. No pneumothorax. Heart/Mediastinum: The heart is enlarged. Bones/joints: Unremarkable. IMPRESSION: 1. No acute pulmonary abnormality. 2. Cardiomegaly.
--- NOTE | 2021-05-09 11:05 | PC.NURSE ---
Covid swab was collected and sent to the lab.
--- NOTE | 2021-05-09 11:06 | HMH.EDSOB ---
ED Disposition Clinical Impression: Acute exacerbation of chronic obstructive airways disease Disposition: Home, Self-Care Condition on Discharge: Good Instructions: DI for Chronic Obstructive Pulmonary Disease Prescriptions: Albuterol Sulfate [Albuterol Sulfate Hfa] 2 puff IH Q4HP PRN #1 each PRN Reason: Wheezing Transmission Status: Pending to [facility] Doxycycline Monohydrate [Doxycycline Osborne 100mg Tab] 100 mg PO Q12 #20 tab Transmission Status: Pending to [facility] methylPREDNISolone [Medrol 4mg tab] 4 mg PO DIRECTED #21 tab Transmission Status: Pending to [facility] Referrals: Robb Ramos PA [Primary Care Provider] - - Critical Care Critical Care Time: No Attestation: On , the high probability of a clinically significant, sudden or life threatening deterioration of the following system(s) required my full and direct attention, intervention and personal management. The time I documented below is in addition to time spent performing reported procedures but includes the following listed in this critical care notation. Medical Decision Making - Medical Records Medical records reviewed: Yes: I reviewed the patient's medical records. - Cipriano Inquiry Pt receiving controlled substance: No Vital Signs: 05/09/21 10:46 05/09/21 11:00 05/09/21 11:31 Temperature 98.2 F Temperature Source Oral Pulse Rate 70 77 Pulse Rate [Radial] 77 Respiratory Rate 32 H Blood Pressure 129/80 126/77 Blood Pressure [Right Radial Artery] 126/77 Blood Pressure Mean Blood Pressure Mean [Right Radial Artery] 93 Blood Pressure Position [Right Radial Artery] Sitting 02 Sat by Pulse Oximetry 96 92 L 96 Oxygen Delivery Method Room Air Room Air Room Air 05/09/21 12:00 05/09/21 12:30 05/09/21 13:00 Temperature Temperature Source Pulse Rate 53 L 64 65 Pulse Rate [Radial] Respiratory Rate 20 Blood Pressure 114/70 120/71 125/72 Blood Pressure [Right Radial Artery] Blood Pressure Mean 83 Blood Pressure Mean [Right Radial Artery] Blood Pressure Position [Right Radial Artery] 02 Sat by Pulse Oximetry 91 L 92 L 92 L Oxygen Delivery Method Room Air Room Air - Lab Data Lab Results 05/09/21 10:55: WBC 9.8, RBC 4.67, Hgb 14.5, Hct 43.0, MCV 92.1, MCH 31.1, MCHC 33.7, RDW 14.8, Plt Count 228, MPV 8.4, Neut % (Auto) 69.3, Lymph % (Auto) 19.5, Osborne % (Auto) 9.0, Eos % (Auto) 1.5, Baso % (Auto) 0.7, Neut # (Auto) 6.8, Lymph # (Auto) 1.9, Osborne # (Auto) 0.9, Eos # (Auto) 0.1, Baso # (Auto) 0.1 05/09/21 10:55: Sodium 131 L, Potassium 3.9, Chloride 93 L, Carbon Dioxide 31 H, Anion Gap 10.9, BUN 13, Creatinine 0.70, Estimated Creat Clear 113, Estimated GFR 111, Est GFR ( Amer) 135, Glucose 98, Calcium 7.8 L, Total Bilirubin 1.7 H, AST 31, ALT 23, Alkaline Phosphatase 89, Troponin I 0.02, Total Protein 7.6, Albumin 4.3, Globulin 3.3 H, Albumin/Globulin Ratio 1.3 05/09/21 10:55: Lactate 1.2 05/09/21 10:55: SARS-CoV-2 (PCR) Not detected, Influenza A Untype (PCR) Not detected, Influenza Type B (PCR) Not detected 05/09/21 10:55: NT-Pro-B Natriuret Pep 545 H 05/09/21 10:55: PT 18.3 H, INR 1.68 H 05/09/21 10:55: Digoxin 0.50 Result diagrams: 05/09/21 10:55 05/09/21 10:55 Orders (Tests/Meds): ED MEDICATIONS Discontinued Medications Generic Name Dose Route Start Last Admin Trade Name Freq PRN Reason Stop Dose Admin Albuterol/Ipratropium 3 ml 05/09/21 10:59 05/09/21 11:27 Ipratropium/Albuterol 3 Ml [facility] 05/09/21 11:00 3 ml ONCE ONE Administration Albuterol/Ipratropium 3 ml 05/09/21 12:58 05/09/21 13:09 Ipratropium/Albuterol 3 Ml [facility] 05/09/21 12:59 3 ml ONCE ONE Administration Methylprednisolone Sodium Succinate 125 mg 05/09/21 10:59 05/09/21 11:28 Methylprednisolone Sod Succ 125mg Vial IV 05/09/21 11:00 125 mg ONCE ONE Administration ORDERS Category Date Time Status
[2021-05-09 11:13] LABS: Coronavirus 19, PCR Not Detected (NotDetected); Influenza A, PCR Not Detected (NotDetected); Influenza B, PCR Not Detected (NotDetected)
[2021-05-09 11:20] LABS: Basophils # 0.1 K/mm3 (0-0.2); Basophils % 0.7 % (0.1-2.0); Eosinophils # 0.1 K/mm3 (0.0-0.4); Eosinophils % 1.5 % (0.1-12.0); Hemoglobin 14.5 g/dL (14.1-18.0); Lymphocytes # 1.9 K/mm3 (0.7-4.5); Lymphocytes % 19.5 % (10-50); Mean Corpuscular HGB Conc 33.7 g/dL (31.8-35.4); Mean Corpuscular Hemoglobin 31.1 pg (27.0-31.2); Mean Corpuscular Volume 92.1 fl (80-94); Mean Platelet Volume 8.4 fl (7.4-10.4); Monocytes # 0.9 K/mm3 (0.1-1.0); Neutrophils # 6.8 K/mm3 (1.8-7.8); Neutrophils % 69.3 % (37.0-80.0); Platelet Count 228 K/mm3 (142-424); Red Blood Count 4.67 M/mm3 (4.60-6.20); Red Cell Distribution Width 14.8 % (11.5-17.5); White Blood Count 9.8 K/mm3 (4.8-10.8)
[2021-05-09 11:22] LABS: Chloride 93 mmol/L (98-107)
[2021-05-09 11:23] LABS: Potassium 3.9 mmoL/L (3.5-5.1); Sodium 131 mmol/L (136-145)
[2021-05-09 11:25] LABS: Alanine Aminotransferase 23 U/L (12-78); Aspartate Amino Transferase 31 U/L (17-59); Blood Urea Nitrogen 13 mg/dl (9-20); Creatinine Clearance Estimated 113 mL/min (50-200); Estimated Glomerular Filt Rate 111 ml/min (>60); GFR (African American) 135 ML/MIN (>60)
[2021-05-09 11:26] LABS: Albumin Level 4.3 g/dl (3.5-5.0); Albumin/Globulin Ratio 1.3 (1.1-1.8); Alkaline Phosphatase 89 U/L (38-126); Anion Gap 10.9 mEq/L (5-15); Bilirubin,Total 1.7 mg/dl (0.2-1.3); Calcium 7.8 mg/dl (8.4-10.2); Carbon Dioxide 31 mmol/L (22.0-30.0); Globulin 3.3 g/dL (1.3-3.2); Glucose 98 mg/dl (74-100); INR 1.68 (0.9-1.1); Lactic Acid 1.2 mmol/L (0.7-2.1); Prothrombin Time 18.3 seconds (10.1-12.5); Total Protein,Serum 7.6 g/dl (6.3-8.2)
[2021-05-09 11:38] LABS: Troponin I 0.02 ng/ml (0.00-0.034)
[2021-05-09 12:07] LABS: NT Pro Brain Natriuretic Pep. 545 pg/mL (0-125)
--- NOTE | 2021-05-09 12:11 | PC.NURSE ---
patient is sitting up on the side of the bed. call light within reach. nothing needed at this time. Awaiting results.
--- NOTE | 2021-05-09 13:30 | PC.NURSE ---
pt is sitting up on the edge of the bed taking a breathing treatment. nothing needed at this time. call light within reach. patient awaiting discharge after breathing treatment.
--- NOTE | 2021-05-09 13:41 | PC.NURSE ---
patient breathing treatment was finished and he wanted it turned off. I turned it off at this time. Patient sitting up on the edge of the bed awaiting discharge.
--- NOTE | 2021-05-09 13:49 | PC.NURSE ---
assisted patient into the wheelchair and out into the vehicle with family.
== END 2021-05-09 14:53 | disposition home or self-care (01) ==
PROVIDERS: Emergency Provider Emergency Medicine; PCP Physician Assistant
DX: J44.1 Chronic obstructive pulmonary disease with (acute) exacerbation (principal); I48.0 Paroxysmal atrial fibrillation; F17.210 Nicotine dependence, cigarettes, uncomplicated
CPT/HCPCS: 71045; 80053; 80162; 83605; 83880; 84484; 85025; 85610; 87040; 93005; 96374; 96375; 99284; C9803; U0003; U0005

== ENCOUNTER 2021-09-30 08:55 | Emergency (ER) | payer OTHER, MEDICARE, SELFPAY ==
[2021-09-30 08:56] VITALS: BP 127/64; PULSE 65; RESP 20; TEMP 36.8; O2SAT 95; BMI 36.2
[2021-09-30 09:06] LABS: POC Glucose,Bedside 129 (70-110)
--- NOTE | 2021-09-30 09:06 | ECG_ITS ---
APPROVED REPORT Exam: Resting ECG HR:66 bpm ECG Measurements Heart Rate 66 AXES QRSd 118 QRS 9 QT 416 T 31 QTc 429 Conclusion ATRIAL FIBRILLATION LOW QRS VOLTAGE IN EXTREMITY LEADS [QRS DEFLECTION < 0.5 mV IN LIMB LEADS] MODERATE INTRAVENTRICULAR CONDUCTION DELAY [110+ ms QRS DURATION] ABNORMAL RHYTHM ECG UNCONFIRMED REPORT Electronically signed by : Lj Medina MD 10/01/2021 15:36:45
[2021-09-30 09:11] VITALS: BMI 36.2
--- NOTE | 2021-09-30 09:13 | PC.NURSE ---
JOSE BUNCH at
--- NOTE | 2021-09-30 09:14 | CT_ITS ---
FINAL REPORT CLINICAL HISTORY: trauma, fall . low back pain FINDINGS: Axial imaging of the lumbar spine was obtained without contrast. Sagittal and coronal reformatted images were also obtained and reviewed.This study was performed with techniques to keep radiation doses as low as reasonably achievable (ALARA). Individualized dose reduction techniques using automated exposure control or adjustment of mA and/or kV according to the patient's size were employed. There is no fracture. The vertebral alignment is normal. Mild and moderate degenerative changes are present. There are multilevel bulges, osteophytes, and facet arthropathy. There is multilevel neural foraminal narrowing, greatest at L5-S1. IMPRESSION: Multilevel degenerative change without acute bony abnormality. Reviewed, Interpreted and Dictated by Shawn Dickens III, MD Transcribed by Radha Glover Authenticated and [facility]
--- NOTE | 2021-09-30 09:14 | CT_ITS ---
FINAL REPORT CLINICAL HISTORY: trauma, fall. hit head FINDINGS: Axial images of the head were obtained without contrast. Coronal reformatted images were also obtained. This study was performed with techniques to keep radiation doses as low as reasonably achievable (ALARA). Individualized dose reduction techniques using automated exposure control or adjustment of mA and/or kV according to the patient's size were employed. There is generalized age-appropriate atrophy. Periventricular low-attenuation areas are seen consistent with mild chronic ischemic changes. Evidence of intracranial hemorrhage. There is a 9 mm mass in the region of the falx, may represent a small incidental meningioma. There is no evidence of acute infarct. There is no evidence of shift of the midline structures. No skull abnormality is seen on the bone window images. IMPRESSION: Atrophy and mild periventricular chronic ischemic changes. Mass at the region of the falx, may represent a small meningioma. If indicated, MRI with and without contrast could further evaluate. Reviewed, Interpreted and Dictated by Shawn Dickens III, MD Transcribed by Radha Glover Authenticated and [facility] [place] [place]
--- NOTE | 2021-09-30 09:20 | PC.NURSE ---
notified Rad CT orders, spoke with morgan.
[2021-09-30 09:23] LABS: Coronavirus 19, PCR Not Detected (NotDetected); Influenza A, PCR Not Detected (NotDetected); Influenza B, PCR Not Detected (NotDetected)
[2021-09-30 09:28] LABS: Basophils # 0.1 K/mm3 (0-0.2); Basophils % 0.8 % (0.1-2.0); Eosinophils # 0.2 K/mm3 (0.0-0.4); Eosinophils % 1.5 % (0.1-12.0); Hematocrit 41.8 % (42.0-52.0); Hemoglobin 14.1 g/dL (14.1-18.0); Lymphocytes # 1.6 K/mm3 (0.7-4.5); Lymphocytes % 14.3 % (10-50); Mean Corpuscular HGB Conc 33.7 g/dL (31.8-35.4); Mean Corpuscular Hemoglobin 30.1 pg (27.0-31.2); Mean Corpuscular Volume 89.4 fl (80-94); Mean Platelet Volume 8.3 fl (7.4-10.4); Monocytes # 0.7 K/mm3 (0.1-1.0); Monocytes % 6.5 % (1.7-9.3); Neutrophils # 8.6 K/mm3 (1.8-7.8); Platelet Count 252 K/mm3 (142-424); Red Blood Count 4.67 M/mm3 (4.60-6.20); Red Cell Distribution Width 15.3 % (11.5-17.5); White Blood Count 11.1 K/mm3 (4.8-10.8)
--- NOTE | 2021-09-30 09:33 | PC.NURSE ---
pt returned from ct
[2021-09-30 09:35] LABS: Alanine Aminotransferase 28 U/L (12-78); Albumin Level 3.9 g/dl (3.5-5.0); Albumin/Globulin Ratio 1.3 (1.1-1.8); Alkaline Phosphatase 97 U/L (38-126); Anion Gap 9.6 mEq/L (5-15); Aspartate Amino Transferase 37 U/L (17-59); Bilirubin,Total 0.7 mg/dl (0.2-1.3); Blood Urea Nitrogen 9 mg/dl (9-20); Calcium 8.9 mg/dl (8.4-10.2); Carbon Dioxide 32 mmol/L (22.0-30.0); Chloride 96 mmol/L (98-107); Creatinine Clearance Estimated 111 mL/min (50-200); Estimated Glomerular Filt Rate 111 ml/min (>60); GFR (African American) 134 ML/MIN (>60); Glucose 122 mg/dl (74-100); Potassium 3.6 mmoL/L (3.5-5.1); Sodium 134 mmol/L (136-145); Total Protein,Serum 6.9 g/dl (6.3-8.2)
[2021-09-30 09:36] LABS: Activated Partial Thrombo Time 45.6 seconds (22.8-30.6); INR 2.74 (0.9-1.1); Prothrombin Time 28.7 seconds (10.1-12.5)
[2021-09-30 09:37] VITALS: BP 138/67; PULSE 72; O2SAT 95
--- NOTE | 2021-09-30 09:37 | HMH.EDSYNC ---
ED Disposition Clinical Impression: Vasovagal syncope Disposition: Home, Self-Care Condition on Discharge: Good Instructions: DI for Syncope in Adults (Fainting) Referrals: Provider,Referral, [Primary Care Provider] - - Critical Care Critical Care Time: No Attestation: On 09/30/21, the high probability of a clinically significant, sudden or life threatening deterioration of the following system(s) required my full and direct attention, intervention and personal management. The time I documented below is in addition to time spent performing reported procedures but includes the following listed in this critical care notation. Medical Decision Making - Medical Records Medical records reviewed: Yes: I reviewed the patient's medical records. - Cipriano Inquiry Pt receiving controlled substance: No Vital Signs: 09/30/21 08:56 09/30/21 09:37 09/30/21 10:01 Temperature 98.2 F Temperature Source Oral Pulse Rate 72 63 Pulse Rate [Apical] 65 Respiratory Rate 20 Blood Pressure 138/67 124/62 Blood Pressure [Right Arm] 127/64 Blood Pressure Mean 90 93 Blood Pressure Mean [Right Arm] 85 Blood Pressure Source [Right Arm] Automatic Cuff Blood Pressure Position [Right Arm] Sitting 02 Sat by Pulse Oximetry 95 95 95 Oxygen Delivery Method Room Air - Lab Data Lab Results 09/30/21 08:59: POC Glucose 129 H 09/30/21 09:05: WBC 11.1 H, RBC 4.67, Hgb 14.1, Hct 41.8 L, MCV 89.4, MCH 30.1, MCHC 33.7, RDW 15.3, Plt Count 252, MPV 8.3, Neut % (Auto) 77.0, Lymph % (Auto) 14.3, [place] % (Auto) 6.5, Eos % (Auto) 1.5, Baso % (Auto) 0.8, Neut # (Auto) 8.6 H, Lymph # (Auto) 1.6, [place] # (Auto) 0.7, Eos # (Auto) 0.2, Baso # (Auto) 0.1 09/30/21 09:05: Sodium 134 L, Potassium 3.6, Chloride 96 L, Carbon Dioxide 32 H, Anion Gap 9.6, BUN 9, Creatinine 0.70, Estimated Creat Clear 111, Estimated GFR 111, Est GFR ( Amer) 134, Glucose 122 H, Calcium 8.9, Total Bilirubin 0.7, AST 37, ALT 28, Alkaline Phosphatase 97, Troponin I < 0.01, Total Protein 6.9, Albumin 3.9, Globulin 3.0, Albumin/Globulin Ratio 1.3 09/30/21 09:05: SARS-CoV-2 (PCR) Not detected, Influenza A Untype (PCR) Not detected, Influenza Type B (PCR) Not detected 09/30/21 09:05: PT 28.7 H, INR 2.74 H, APTT 45.6 H Result diagrams: 09/30/21 09:05 09/30/21 09:05 Orders (Tests/Meds): ED MEDICATIONS Generic Name Dose Route Start Last Admin Trade Name Freq PRN Reason Stop Dose Admin Sodium Chloride 10 ml 09/30/21 09:11 Sodium Chloride 0.9% 10ml Flush Syringe IV 10/30/21 09:10 NEEDED PRN Maintain IV Site ORDERS Category Date Time Status Troponin I Q3H Lab 09/30/21 12:15 Ordered Troponin I Q3H Lab 09/30/21 15:15 Ordered - CT Data CT Scan: Head, L-Spine Time Received: 10:[address] Reviewed: Yes: I have reviewed the patient's CT results, I have viewed the radiologist's interpretation Findings Narrative: IMPRESSION: Multilevel degenerative change without acute bony abnormality. IMPRESSION: Atrophy and mild periventricular chronic ischemic changes. Mass at the region of the falx, may represent a small meningioma. If indicated, MRI with and without contrast could further evaluate. - ECG Data Tracing #1 I reviewed this ECG and interpreted as documented below: No ventricular rate of 60 bpm, atrial fibrillation with nonspecific changes. ECG initial impression date: 09/30/21 ECG initial impression time: 09:06 - Reevaluation(s) Time: 10:48 Reevaluation #1: On reevaluation, patient is feeling better. Patient is at baseline. Repeat neuro exam is normal. Lumbar CT was unremarkable. Patient does have a small meningioma on head CT. Notified about this. Need to follow-up with PCP for further management. Given strict return precautions. Verbalized understanding. Medical Decision Narrative: 71-year-old male presented to the emergency department after syncopal episode. Appears to be secondary to a coughing spe
[2021-09-30 09:49] LABS: Troponin I < 0.01 ng/ml (0.00-0.034)
[2021-09-30 10:01] VITALS: BP 124/62; PULSE 63; O2SAT 95
[2021-09-30 10:31] VITALS: BP 125/78; PULSE 61; O2SAT 93
--- NOTE | 2021-09-30 10:47 | PC.NURSE ---
checked on pt at this time, pt sitting up on side of the bed, pt requesting to know if he will be going home soon. Spoke with ER MD states he does plan to d/c pt. Updated pt and family on POC.
[2021-09-30 11:04] VITALS: BP 127/65; PULSE 62; O2SAT 96
[2021-09-30 11:10] VITALS: BP 127/69; PULSE 65; RESP 20; TEMP 36.8; O2SAT 96
== END 2021-09-30 11:10 | disposition home or self-care (01) ==
PROVIDERS: Emergency Provider Emergency Medicine
DX: R55 Syncope and collapse (principal); D32.0 Benign neoplasm of cerebral meninges; M47.896 Other spondylosis, lumbar region; S39.012A Strain of muscle, fascia and tendon of lower back, initial encounter; V89.0XXA Person injured in unspecified motor-vehicle accident, nontraffic, initial encounter; I48.91 Unspecified atrial fibrillation; Z79.01 Long term (current) use of anticoagulants; J44.9 Chronic obstructive pulmonary disease, unspecified; F17.210 Nicotine dependence, cigarettes, uncomplicated; F17.290 Nicotine dependence, other tobacco product, uncomplicated
CPT/HCPCS: 70450; 72131; 80053; 82962; 84484; 85025; 85610; 85730; 93005; 99284; C9803; U0003; U0005

== ENCOUNTER → 2021-11-09 11:34 | Outpatient (CLI) | payer MEDICARE, OTHER, SELFPAY ==
--- NOTE | 2021-11-09 11:42 | XR_ITS ---
FINAL REPORT CLINICAL HISTORY: SOA, cough COMPARISON: May 09, 2021 FINDINGS: Two views of the chest were obtained. There is cardiomegaly with mild pulmonary vascular congestion. The mediastinum is normal. No acute pulmonary abnormality is identified. There is no pneumothorax. There are postoperative changes in the lower cervical spine. IMPRESSION: Cardiomegaly with mild pulmonary vascular congestion. Reviewed, Interpreted and Dictated by Shawn Dickens III, MD Transcribed by Monica Wolf Authenticated and [facility]
== END ==
PROVIDERS: PCP Physician Assistant; Visit Provider Physician Assistant
DX: J44.1 Chronic obstructive pulmonary disease with (acute) exacerbation (principal); R06.02 Shortness of breath; R55 Syncope and collapse
CPT/HCPCS: 71046

== ENCOUNTER → 2021-11-17 11:41 | Outpatient (CLI) | payer MEDICARE, OTHER, SELFPAY ==
[2021-11-17 12:52] LABS: Blood Urea Nitrogen 13 mg/dl (9-20); Calcium 8.4 mg/dl (8.4-10.2); Carbon Dioxide 31 mmol/L (22.0-30.0); Chloride 97 mmol/L (98-107); Estimated Glomerular Filt Rate 111 ml/min (>60); GFR (African American) 134 ML/MIN (>60); Glucose 81 mg/dl (74-100); Sodium 134 mmol/L (136-145)
== END ==
PROVIDERS: PCP Physician Assistant; Visit Provider Nurse Practitioner Family
DX: E78.2 Mixed hyperlipidemia (principal); I10 Essential (primary) hypertension; I25.10 Atherosclerotic heart disease of native coronary artery without angina pectoris; J44.1 Chronic obstructive pulmonary disease with (acute) exacerbation; R06.02 Shortness of breath; R60.0 Localized edema
CPT/HCPCS: 36415; 80048

== ENCOUNTER 2022-01-28 16:06 | Emergency (ER) | payer MEDICARE, OTHER, SELFPAY ==
[2022-01-28 16:07] VITALS: BP 146/74; PULSE 64; RESP 18; TEMP 36.5; O2SAT 96; BMI 36.2
--- NOTE | 2022-01-28 16:30 | PC.NURSE ---
JOSE BUNCH at
[2022-01-28 16:31] VITALS: BP 154/78; PULSE 77; RESP 18; O2SAT 95
--- NOTE | 2022-01-28 16:45 | HMH.EDGENADL ---
Discharge Plan Disposition Patient Disposition: Home, Self-Care Condition: Good Prescriptions Prescriptions: New cephalexin 500 mg capsule 500 mg PO Q6H Qty: 28 0RF No Action levothyroxine [Synthroid] 125 mcg tablet 125 mcg PO DAILY Qty: 90 4RF Stiolto Respimat 2.5-2.5 mcg/actuation mist 2 puff INHALATION DAILY 90 Days Qty: 4 3RF trazodone 50 mg tablet 50 mg PO QHS PRN aspirin [Adult Low Dose Aspirin] 81 mg tablet,delayed release (DR/EC) 81 mg PO QDAY sildenafil [Viagra] 50 mg tablet 50 mg PO QDAY PRN albuterol sulfate 90 mcg/actuation HFA aerosol inhaler 1 inh INHALATION Q6H PRN (Reason: shortness of breath or wheezing) 90 Days Qty: 8.5 3RF gabapentin 300 mg capsule 300 mg PO TID warfarin 5 mg tablet See Rx Instructions .ROUTE .COMPLEX Qty: 30 5RF Dose Instruction: TAKE ONE TABLET BY MOUTH ONCE A DAY OR DIRECTED Rx Instructions: TAKE ONE TABLET BY MOUTH ONCE A DAY OR DIRECTED warfarin 4 mg tablet See Rx Instructions .ROUTE .COMPLEX Qty: 90 1RF Dose Instruction: TAKE ONE TABLET BY MOUTH ONCE A DAY OR DIRECTED Rx Instructions: TAKE ONE TABLET BY MOUTH ONCE A DAY OR DIRECTED atorvastatin 40 mg tablet See Rx Instructions .ROUTE .COMPLEX Qty: 90 2RF Dose Instruction: TAKE ONE TABLET BY MOUTH ONCE A DAY Rx Instructions: TAKE ONE TABLET BY MOUTH ONCE A DAY potassium chloride 20 mEq tablet,ER particles/crystals See Rx Instructions .ROUTE .COMPLEX Qty: 360 1RF Dose Instruction: TAKE ONE TABLET BY MOUTH FOUR TIMES A DAY Rx Instructions: TAKE ONE TABLET BY MOUTH FOUR TIMES A DAY digoxin 125 mcg (0.125 mg) tablet See Rx Instructions .ROUTE .COMPLEX Qty: 90 1RF Dose Instruction: TAKE ONE TABLET BY MOUTH ONCE A DAY Rx Instructions: TAKE ONE TABLET BY MOUTH ONCE A DAY ropinirole 2 mg tablet See Rx Instructions .ROUTE .COMPLEX Qty: 180 1RF Dose Instruction: TAKE ONE TABLET BY MOUTH 2 TIMES A DAY Rx Instructions: TAKE ONE TABLET BY MOUTH 2 TIMES A DAY losartan 100 mg tablet See Rx Instructions .ROUTE .COMPLEX Qty: 90 0RF Dose Instruction: TAKE 1 TABLET BY MOUTH ONCE A DAY Rx Instructions: TAKE 1 TABLET BY MOUTH ONCE A DAY furosemide 80 mg tablet See Rx Instructions .ROUTE .COMPLEX Qty: 90 0RF Dose Instruction: TAKE ONE TABLET BY MOUTH EVERY MORNING Rx Instructions: TAKE ONE TABLET BY MOUTH EVERY MORNING furosemide [Lasix] 40 mg tablet 40 mg PO ONCE Qty: 30 5RF albuterol sulfate 8.5 GM HFA aerosol inhaler 2 puff IH Q4HP PRN (Reason: Wheezing) Qty: 1 0RF doxycycline monohydrate 100 MG tablet 100 mg PO Q12 Qty: 20 0RF Referrals Follow up/Referrals: Provider,Referral, MD [Primary Care Provider] - See instructions Activity Restrictions/Add. Instructions Additional Instructions/Restrictions: Clean wound daily with soap and water and apply Neosporin and bandage daily until healed. Cephalexin as prescribed. Follow-up if any signs of infection such as redness, pus drainage, swelling, increasing pain, or fever. Clinical Impressions Clinical Impression: Foreign body in skin Instructions Patient Instructions: DI for Removal of Foreign Body From Skin Discharge ED Provider: Wilfrido Head General Adult HPI General Chief complaint: Skin/Abscess/Foreign Body Stated complaint: possible spliter ontop of head Time Seen by Provider: 01/28/22 16:24 Mode of Arrival: Family Vehicle Source of Information: Patient and Relative Limitations: No Limitations Description of Symptoms (Recalled from ER Triage Doc. by RN): PT PRESENTS WITH INJURY TO SCALP AREA, STATES THAT IT OCCURRED A COUPLE WEEKS AGO, DOES NOT REMEMBER EXACTLY HOW HE INJURED HIMDELF BUT SAYS THAT HE IS ACTIVE OUTSIDE AND WORKING IN HIS BARN. DOES NOT RECALL HIS LAST TETANUS SHOT. History of Present Illness HPI narrative: States that 2 to 3 week
[2022-01-28 17:03] VITALS: BP 154/78; PULSE 77; RESP 18; TEMP 36.5; O2SAT 95
== END 2022-01-28 17:03 | disposition home or self-care (01) ==
PROVIDERS: Emergency Provider Emergency Medicine; PCP Physician Assistant
DX: Y92.71 Barn as the place of occurrence of the external cause (principal); S09.8XXA Other specified injuries of head, initial encounter; M79.5 Residual foreign body in soft tissue; Z23 Encounter for immunization
CPT/HCPCS: 10120; 90471; 90714; 99283

== ENCOUNTER 2022-04-23 06:03 | Emergency (ER) | payer MEDICARE, OTHER, SELFPAY ==
[2022-04-23 06:06] VITALS: BP 164/79; PULSE 74; RESP 23; TEMP 36.7; O2SAT 96; BMI 36.2
[2022-04-23 06:16] VITALS: BP 164/79; PULSE 61; O2SAT 93
--- NOTE | 2022-04-23 06:22 | CT_ITS ---
PROCEDURE INFORMATION: Exam: CT Head Without Contrast Exam date and time: 04/23/2022 6:40 AM Age: 71 years old Clinical indication: Injury or trauma; Fall; Blunt trauma (contusions or hematomas); Without loss of consciousness; Additional info: Fall; On warfarin TECHNIQUE: Imaging protocol: Computed tomography of the head without contrast. Radiation optimization: All CT scans at this facility use at least one of these dose optimization techniques: automated exposure control; mA and/or kV adjustment per patient size (includes targeted exams where dose is matched to clinical indication); or iterative reconstruction. Other protocol: This patient has received 4 known CTs and 0 known cardiac nuclear medicine studies in the 12 months prior to the current study. COMPARISON: CT HEAD/BRAIN WO CON 09/30/2021 9:21 AM FINDINGS: Brain: Chronic microvascular ischemic disease without acute intraparenchymal hemorrhage and no obvious acute ischemic stroke. Unchanged midline superior falx hyperdense meningioma measuring 9 x 9 x 10 mm without surrounding edema or mass effect. No intra-or extra-axial fluid collection, no mass effect or midline shift. Cerebral ventricles: Mildly prominent ventricles, sulci and basal cisterns without evidence of hydrocephalus. Paranasal sinuses: No significant mucoperiosteal thickening in the visualized paranasal sinuses. Mastoid air cells: No mastoid effusion. Bones/joints: Unchanged chronic fracture-deformity of the nasal bone/septum and of the medial wall of the RIGHT orbit. Soft tissues: Marked chronic deformity/fracture and deviation of the nasal septum to the LEFT. IMPRESSION: 1. Chronic microvascular disease and generalized atrophy without acute intracranial abnormality. 2. Unchanged midline superior falx hyperdense meningioma measuring 9 x 9 x 10 mm. 3. No evidence of acute hemorrhage or obvious acute ischemic infarction.
--- NOTE | 2022-04-23 06:22 | CT_ITS ---
PROCEDURE INFORMATION: Exam: CT Cervical Spine Without Contrast Exam date and time: 04/23/2022 6:42 AM Age: 71 years old Clinical indication: Injury or trauma; Fall; Blunt trauma; Prior surgery; Surgery date: 6+ months; Surgery type: Previous cspine fusion TECHNIQUE: Imaging protocol: Computed tomography of the cervical spine without contrast. Radiation optimization: All CT scans at this facility use at least one of these dose optimization techniques: automated exposure control; mA and/or kV adjustment per patient size (includes targeted exams where dose is matched to clinical indication); or iterative reconstruction. Other protocol: This patient has received 4 known CTs and 0 known cardiac nuclear medicine studies in the 12 months prior to the current study. COMPARISON: No relevant prior studies available. FINDINGS: Bones/joints: Coarse bony trabecular pattern suggestive of diffuse osteopenia. Loss of normal curvature of the spine with degenerative spondylolisthesis. Solid-appearing anterior interbody fusion from C5 through C7 with marked chronic deformity involving the facet joints at the surgical levels without hardware complications. . No evidence of acute compression fracture or deformity. No discernible displaced fracture involving the vertebral bodies or their posterior elements. Facet joints are normally aligned without facetal dislocation or subluxation. No fracture of the dens, chronic degenerative changes at the lateral C1-C2 articulation, atlantooccipital joints and central atlantodental joint. Discs/Spinal canal/Neural foramina: Advanced chronic degenerative changes in the cervical spine. Lungs: Scarring and pleural thickening in the lung apices. Soft tissues: Pre-and paravertebral soft tissues are grossly normal. Extensive atherosclerotic calcification of the carotid and the vertebral arteries. IMPRESSION: Advanced chronic degenerative and postoperative changes without an acute cervical spine injury or abnormality.
--- NOTE | 2022-04-23 06:22 | CT_ITS ---
PROCEDURE INFORMATION: Exam: CT Chest Without Contrast; Diagnostic Exam date and time: 04/23/2022 6:44 AM Age: 71 years old Clinical indication: Injury or trauma; Fall; Blunt trauma (contusions or hematomas); Additional info: Left sided chest wall pain after fall TECHNIQUE: Imaging protocol: Diagnostic computed tomography of the chest without contrast. 3D rendering (Not supervised by radiologist): MIP and/or 3D reconstructed images were created by the technologist. Radiation optimization: All CT scans at this facility use at least one of these dose optimization techniques: automated exposure control; mA and/or kV adjustment per patient size (includes targeted exams where dose is matched to clinical indication); or iterative reconstruction. Other protocol: This patient has received 4 known CTs and 0 known cardiac nuclear medicine studies in the 12 months prior to the current study. COMPARISON: CT LUNG SCREENING 11/13/2020 7:00 AM FINDINGS: Lungs: Hyperinflation, interstitial prominence, and chronic granulomatous disease. Mild airspace disease, without focal pulmonary contusion. Pleural spaces: No pneumothorax or significant pleural effusion. Heart: Coronary artery calcification. 13 mm pericardial effusion. Lymph nodes: Mildly enlarged 15 x 11 x 12 mm right axillary lymph node. Multiple additional subcentimeter lymph nodes. Vasculature: Stable 4.6 cm aneurysm of the ascending thoracic aorta and vascular calcification. Bones/joints: Acute nondisplaced fracture involving the left 5th anterior rib. Schmorl's nodes, vertebral endplate irregularity, and L1 compression fracture. Degenerative change. Soft tissues: Subcutaneous edema. IMPRESSION: 1. Acute nondisplaced fracture involving the left 5th anterior rib. 2. Stable 4.6 cm aneurysm of the ascending thoracic aorta and vascular calcification. 3. Additional findings as described above.
--- NOTE | 2022-04-23 06:27 | HMH.EDGENADL ---
Discharge Plan Disposition Patient Disposition: Home, Self-Care Condition: Fair Prescriptions Prescriptions: New methocarbamol [Methocarbamol] 750 mg tablet 750 mg PO Q6 PRN (Reason: Muscle Spasm) Qty: 30 0RF hydrocodone-acetaminophen 5-325 mg tablet 1 tab PO Q8H PRN (Reason: pain) Qty: 10 0RF hydrocodone-acetaminophen 5-325 mg tablet 1 tab PO Q8H PRN (Reason: pain) Qty: 10 0RF No Action trazodone 50 mg tablet 50 mg PO QHS PRN (Reason: Insomnia) aspirin [Adult Low Dose Aspirin] 81 mg tablet,delayed release (DR/EC) 81 mg PO QDAY sildenafil [Viagra] 50 mg tablet 50 mg PO QDAY PRN (Reason: Erectile Dysfunction) albuterol sulfate 90 mcg/actuation HFA aerosol inhaler 1 inh INHALATION Q6H PRN (Reason: shortness of breath or wheezing) 90 Days Qty: 8.5 3RF albuterol sulfate 8.5 GM HFA aerosol inhaler 2 puff IH Q4HP PRN (Reason: Wheezing) Qty: 1 0RF atorvastatin 40 mg tablet 40 mg PO DAILY Rx Instructions: TAKE ONE TABLET BY MOUTH ONCE A DAY warfarin 4 mg tablet 4 mg PO DIRECTED Rx Instructions: TAKE ONE TABLET BY MOUTH four days a week potassium chloride 20 mEq tablet,ER particles/crystals 20 meq PO DAILY Rx Instructions: TAKE ONE TABLET BY MOUTH FOUR TIMES A DAY furosemide 80 mg tablet 40 mg PO BID Rx Instructions: TAKE ONE TABLET BY MOUTH EVERY MORNING ropinirole 2 mg tablet 2 mg PO BID Rx Instructions: TAKE ONE TABLET BY MOUTH 2 TIMES A DAY levothyroxine [Synthroid] 125 mcg tablet 125 mcg PO DAILY warfarin 5 mg tablet 5 mg PO DIRECTED Rx Instructions: TAKE ONE TABLET BY MOUTH three days a week digoxin 125 mcg (0.125 mg) tablet 125 mcg PO DAILY Rx Instructions: TAKE ONE TABLET BY MOUTH ONCE A DAY losartan 100 mg tablet 100 mg PO DAILY Rx Instructions: TAKE 1 TABLET BY MOUTH ONCE A DAY Stiolto Respimat 2.5-2.5 mcg/actuation mist 2 puff INHALATION DAILY gabapentin 300 mg capsule 300 mg PO TID Referrals Follow up/Referrals: Robb Wise PA [Primary Care Provider] - See instructions Clinical Impressions Clinical Impression: Contusion of rib on left side Instructions Patient Instructions: DI for Rib Contusion Discharge ED Provider: Haile Han General Adult HPI General Chief complaint: Fall Stated complaint: AO 04/22/22 2030 injured left rig cage Time Seen by Provider: 04/23/22 06:15 History of Present Illness HPI narrative: Patient is a 71-year-old male with past medical history of atrial fibrillation, COPD, hypertension, cardiomyopathy, hyperlipidemia who is currently on warfarin therapy who presents with concern for a fall. He states that last night he had a trip and fall going into his house. He did not hit his head and no loss of consciousness. He complains of left-sided chest wall pain. He says it is worse when he takes a deep breath. Denies any numbness or tingling into his upper extremities. He says that he does have some numbness and tingling into his right lower leg but states that this is chronic and unchanged from baseline. Denies any abdominal pain. Denies any worsening shortness of breath. Related Data Home Medications Medication Instructions Recorded Confirmed aspirin 81 mg tablet,delayed 81 mg PO QDAY heart health 04/07/17 04/23/22 release (Adult Low Dose Aspirin) sildenafil 50 mg tablet (Viagra) 50 mg PO QDAY PRN Erectile 04/07/17 04/23/22 Dysfunction trazodone 50 mg tablet 50 mg PO QHS PRN Insomnia 04/11/17 04/23/22 atorvastatin 40 mg tablet 40 mg PO DAILY High cholesterol 04/23/22 04/23/22 digoxin 125 mcg (0.125 mg) tablet 125 mcg PO DAILY arrhythmia 04/23/22 04/23/22 furosemide 80 mg tablet 40 mg PO BID swelling 04/23/22 04/23/22 gabapentin 300 mg capsule 300 mg PO TID neuropathy 04/23/22 04/23/22 levothyroxine 125 mcg tablet 125 mcg PO DAILY hypothyroidism 04/23/22 04/23/22 (Synthroid)
[2022-04-23 06:30] VITALS: BP 169/75; PULSE 65; O2SAT 95
--- NOTE | 2022-04-23 06:35 | PC.NURSE ---
pt going to scan at this time
--- NOTE | 2022-04-23 06:47 | PC.NURSE ---
pt back in room
--- NOTE | 2022-04-23 06:52 | PC.NURSE ---
Pt back from ct scan. obtained labs via venipuncture.
[2022-04-23 07:02] LABS: Basophils # 0.1 K/mm3 (0-0.2); Basophils % 1.3 % (0.1-2.0); Eosinophils # 0.3 K/mm3 (0.0-0.4); Eosinophils % 2.7 % (0.1-12.0); Hematocrit 47.3 % (42.0-52.0); Hemoglobin 15.9 g/dL (14.1-18.0); Lymphocytes # 2.1 K/mm3 (0.7-4.5); Lymphocytes % 21.9 % (10-50); Mean Corpuscular HGB Conc 33.6 g/dL (31.8-35.4); Mean Corpuscular Volume 89.2 fl (80-94); Mean Platelet Volume 8.1 fl (7.4-10.4); Monocytes # 0.6 K/mm3 (0.1-1.0); Neutrophils # 6.7 K/mm3 (1.8-7.8); Neutrophils % 68.1 % (37.0-80.0); Platelet Count 311 K/mm3 (142-424); Red Cell Distribution Width 15.6 % (11.5-17.5); White Blood Count 9.8 K/mm3 (4.8-10.8)
[2022-04-23 07:11] LABS: Alanine Aminotransferase 25 U/L (12-78); Albumin Level 4.5 g/dl (3.5-5.0); Albumin/Globulin Ratio 1.3 (1.1-1.8); Alkaline Phosphatase 92 U/L (38-126); Anion Gap 11.9 mEq/L (5-15); Aspartate Amino Transferase 33 U/L (17-59); Bilirubin,Total 1.3 mg/dl (0.2-1.3); Blood Urea Nitrogen 7 mg/dl (9-20); Calcium 8.4 mg/dl (8.4-10.2); Carbon Dioxide 27 mmol/L (22.0-30.0); Chloride 96 mmol/L (98-107); Creatinine Clearance Estimated 111 mL/min (50-200); Estimated Glomerular Filt Rate 132 ml/min (>60); GFR (African American) 160 ML/MIN (>60); Globulin 3.4 g/dL (1.3-3.2); Glucose 129 mg/dl (74-100); INR 2.43 (0.9-1.1); Potassium 3.9 mmoL/L (3.5-5.1); Sodium 131 mmol/L (136-145); Total Protein,Serum 7.9 g/dl (6.3-8.2)
--- NOTE | 2022-04-23 07:19 | PC.NURSE ---
Assumed pt care. Reassessment of pain, 7/10 left rib pain worsens with movement and cough. Bilateral decreased lung sounds with wheezing. Spontaneous respirations. Pt updated on plan of care.
--- NOTE | 2022-04-23 07:24 | PC.NURSE ---
Incentive Spirometer provided with appropriate teaching and correct redemonstration.
--- NOTE | 2022-04-23 07:42 | PC.NURSE ---
contacted radiology to check on status of CT results, rad staff states they will message [employer] to check on it. Updated pt. pt states no needs at this time, at BS
[2022-04-23 08:13] VITALS: BP 124/66; PULSE 76; RESP 18; O2SAT 96
--- NOTE | 2022-04-23 08:13 | PC.NURSE ---
Rounded on patient and family member; patient does not need anything at this time
--- NOTE | 2022-04-23 08:27 | PC.NURSE ---
Called radiology for an ETA of CT Chest Impression; awaiting update.
[2022-04-23 08:45] VITALS: BP 109/60; PULSE 60; RESP 17; O2SAT 93
[2022-04-23 09:10] VITALS: BP 109/54; PULSE 91; RESP 20; TEMP 36.5
== END 2022-04-23 09:15 | disposition home or self-care (01) ==
PROVIDERS: Emergency Provider Student in an Organized Health Care Education/Training Program; PCP Physician Assistant
DX: S20.212A Contusion of left front wall of thorax, initial encounter (principal); W01.0XXA Fall on same level from slipping, tripping and stumbling without subsequent striking against object, initial encounter; I48.91 Unspecified atrial fibrillation; J44.9 Chronic obstructive pulmonary disease, unspecified; I42.9 Cardiomyopathy, unspecified; E78.5 Hyperlipidemia, unspecified; Z79.01 Long term (current) use of anticoagulants; I11.9 Hypertensive heart disease without heart failure; Z95.9 Presence of cardiac and vascular implant and graft, unspecified; Z86.79 Personal history of other diseases of the circulatory system; Z87.891 Personal history of nicotine dependence
CPT/HCPCS: 70450; 71250; 72125; 80053; 85025; 85610; 99285

== ENCOUNTER 2022-08-01 15:32 | Emergency (ER) | payer MEDICARE, OTHER, SELFPAY ==
[2022-08-01 15:33] VITALS: BP 153/72; PULSE 62; RESP 18; TEMP 36.7; O2SAT 98; BMI 36.2
--- NOTE | 2022-08-01 15:37 | PC.NURSE ---
DR LORA AT BEDSIDE
--- NOTE | 2022-08-01 15:38 | CT_ITS ---
FINAL REPORT TECHNIQUE: Axial images were obtained from skull base to the thoracic inlet by computed tomography. Coronal and sagittal reconstruction process performed. This study was performed with techniques to keep radiation doses as low as reasonably achievable (ALARA). Individualized dose reduction techniques using automated exposure control or adjustment of mA and/or kV according to the patient''s size were employed. CLINICAL HISTORY: neck pain COMPARISON: 04/23/2022 FINDINGS: There is fusion of C5 through C7. Mild, stable anterolisthesis is seen of C4 on C5. There are multilevel moderate and severe degenerative changes with central canal stenosis and neural foraminal narrowing. No acute fracture is seen. The facets are normally aligned. The soft tissues are unremarkable. Limited images of the lung apices are unremarkable. C2-3: Small central disc protrusion with right facet arthropathy and mild right neural foraminal narrowing. C3-4: Bilateral uncovertebral osteophytes with left facet arthropathy. There is mild right and severe left neural foraminal narrowing. C4-5: Annular disc bulge with uncovertebral osteophytes and facet arthropathy. There is severe bilateral neural foraminal narrowing. There is mild central canal stenosis with AP diameter of the thecal sac measuring 8 mm. C5-6: Postoperative changes of fusion. There is severe right and moderate left neural foraminal narrowing. There is mild central canal stenosis with AP diameter of the thecal sac measuring 9 mm. C6-7: Postoperative changes of fusion with moderate bilateral neural foraminal narrowing. There is mild central canal stenosis with AP diameter of the thecal sac measuring 9 mm. C7-T1: Disc osteophyte complex with moderate bilateral neural foraminal narrowing. IMPRESSION: Postoperative and degenerative changes as above, stable from prior exam. No acute bony abnormality. Reviewed, Interpreted and Dictated by Shawn Dickens III, MD Transcribed by Yoko Mata Authenticated and [facility]
--- NOTE | 2022-08-01 15:50 | PC.NURSE ---
PT TO XR
[2022-08-01 16:01] VITALS: BP 128/66; PULSE 59; O2SAT 97
--- NOTE | 2022-08-01 16:10 | HMH.EDGENADL ---
Discharge Plan Disposition Patient Disposition: Home, Self-Care Prescriptions Prescriptions: New methylprednisolone [Medrol (Tanner)] 4 mg tablets,dose pack 4 mg PO DAILY Qty: 21 0RF No Action trazodone 50 mg tablet 50 mg PO QHS PRN (Reason: Insomnia) aspirin [Adult Low Dose Aspirin] 81 mg tablet,delayed release (DR/EC) 81 mg PO QDAY sildenafil [Viagra] 50 mg tablet 50 mg PO QDAY PRN (Reason: Erectile Dysfunction) albuterol sulfate 90 mcg/actuation HFA aerosol inhaler 1 inh INHALATION Q6H PRN (Reason: shortness of breath or wheezing) 90 Days Qty: 8.5 3RF ropinirole 2 mg tablet 2 mg PO BID Qty: 180 1RF Rx Instructions: TAKE ONE TABLET BY MOUTH 2 TIMES A DAY furosemide 80 mg tablet See Rx Instructions .ROUTE .COMPLEX Qty: 90 1RF Dose Instruction: TAKE ONE TABLET BY MOUTH EVERY MORNING Rx Instructions: TAKE ONE TABLET BY MOUTH EVERY MORNING levothyroxine [Synthroid] 125 mcg tablet 125 mcg PO DAILY Qty: 90 4RF albuterol sulfate 8.5 GM HFA aerosol inhaler 2 puff IH Q4HP PRN (Reason: Wheezing) Qty: 1 0RF atorvastatin 40 mg tablet 40 mg PO DAILY Rx Instructions: TAKE ONE TABLET BY MOUTH ONCE A DAY warfarin 4 mg tablet 4 mg PO DIRECTED Rx Instructions: TAKE ONE TABLET BY MOUTH four days a week potassium chloride 20 mEq tablet,ER particles/crystals 20 meq PO DAILY Rx Instructions: TAKE ONE TABLET BY MOUTH FOUR TIMES A DAY warfarin 5 mg tablet 5 mg PO DIRECTED Rx Instructions: TAKE ONE TABLET BY MOUTH three days a week digoxin 125 mcg (0.125 mg) tablet 125 mcg PO DAILY Rx Instructions: TAKE ONE TABLET BY MOUTH ONCE A DAY losartan 100 mg tablet 100 mg PO DAILY Rx Instructions: TAKE 1 TABLET BY MOUTH ONCE A DAY Stiolto Respimat 2.5-2.5 mcg/actuation mist 2 puff INHALATION DAILY gabapentin 300 mg capsule 300 mg PO TID methocarbamol [Methocarbamol] 750 mg tablet 750 mg PO Q6 PRN (Reason: Muscle Spasm) Qty: 30 0RF hydrocodone-acetaminophen 5-325 mg tablet 1 tab PO Q8H PRN (Reason: pain) Qty: 10 0RF hydrocodone-acetaminophen 5-325 mg tablet 1 tab PO Q8H PRN (Reason: pain) Qty: 10 0RF Referrals Follow up/Referrals: Raciel Wise [Primary Care Provider] - See instructions Clinical Impressions Clinical Impression: Acute torticollis Instructions Patient Instructions: DI for Neck Pain Discharge ED Provider: Wilmar Louis General Adult HPI General Chief complaint: Neck Pain/Injury Stated complaint: Neck pain, no accident Time Seen by Provider: 08/01/22 15:35 Mode of Arrival: Wheelchair Limitations: No Limitations Description of Symptoms (Recalled from ER Triage Doc. by RN): PT REPORTS NECK PAIN X 1 MONTH. PAIN WORSE WITH MOVEMENT TO LEFT SIDE, EXTENSION AND FLEXION History of Present Illness HPI narrative: 71-year-old male presents with neck pain for 1 month. He says he has pain worsening moving to the left side and ranging his neck. He has not tried anything else for pain. He has no chest pain abdominal pain nausea vomiting. No numbness weakness or tingling in arms or legs that has changed. No headache or neck trauma. Related Data Home Medications Medication Instructions Recorded Confirmed aspirin 81 mg tablet,delayed 81 mg PO QDAY heart health 04/07/17 04/23/22 release (Adult Low Dose Aspirin) sildenafil 50 mg tablet (Viagra) 50 mg PO QDAY PRN Erectile 04/07/17 04/23/22 Dysfunction trazodone 50 mg tablet 50 mg PO QHS PRN Insomnia 04/11/17 04/23/22 atorvastatin 40 mg tablet 40 mg PO DAILY High cholesterol 04/23/22 04/23/22 digoxin 125 mcg (0.125 mg) tablet 125 mcg PO DAILY arrhythmia 04/23/22 04/23/22 gabapentin 300 mg capsule 300 mg PO TID neuropathy 04/23/22 04/23/22 losartan 100 mg tablet 100 mg PO DAILY High blood pressure 04/23/22 04/23/22 potassium chloride 20 mEq 20 meq PO DAILY Supplement 04/23/22 04/23/22 tablet,ext
--- NOTE | 2022-08-01 16:22 | PC.NURSE ---
PT MEDICATED PER EMAR, NO NEEDS AT THIS TIME. PT SITTING UP IN BED TALKING WITH . CALL LIGHT WITHIN REACH
[2022-08-01 16:30] VITALS: BP 131/78; PULSE 53; O2SAT 97
--- NOTE | 2022-08-01 16:46 | PC.NURSE ---
no complaints at this time, visitor at bedside
--- NOTE | 2022-08-01 17:10 | PC.NURSE ---
DR LORA AT BEDSIDE TO REEVALUATE PT
--- NOTE | 2022-08-01 17:16 | PC.NURSE ---
rounded on pt, updated on poc
[2022-08-01 17:31] VITALS: BP 128/64; PULSE 55; RESP 20; TEMP 36.8; O2SAT 95
== END 2022-08-01 17:33 | disposition home or self-care (01) ==
PROVIDERS: Emergency Provider Emergency Medicine; PCP Internal Medicine Endocrinology, Diabetes & Metabolism
DX: M43.6 Torticollis (principal); I48.91 Unspecified atrial fibrillation; I11.9 Hypertensive heart disease without heart failure; Z87.891 Personal history of nicotine dependence
CPT/HCPCS: 72125; 96372; 99284

== ENCOUNTER 2022-10-23 08:57 | Emergency (ER) | payer MEDICARE, OTHER, SELFPAY ==
[2022-10-23] VITALS (8 sets, daily range): BP systolic 124–142; BP diastolic 64–74; PULSE 58–76; RESP 20–22; TEMP 36.4–36.8; O2SAT 92–99; BMI 36.6
--- NOTE | 2022-10-23 09:14 | PC.NURSE ---
ED MD AT BEDSIDE
--- NOTE | 2022-10-23 09:18 | XR_ITS ---
PROCEDURE INFORMATION: Exam: XR Chest Exam date and time: 10/23/2022 10:23 AM Age: 72 years old Clinical indication: Shortness of breath; Additional info: SOB TECHNIQUE: Imaging protocol: Radiologic exam of the chest. Views: 1 view. COMPARISON: CT CHEST WO CON 04/23/2022 6:44 AM FINDINGS: Lungs: Unremarkable. No consolidation. Pleural spaces: Unremarkable. No pleural effusion. No pneumothorax. Heart/Mediastinum: The heart is enlarged. Bones/joints: Cervical fixation hardware is partially imaged. IMPRESSION: Cardiomegaly.
[2022-10-23 09:27] LABS: Coronavirus 19, PCR Not Detected (NotDetected); Influenza A, PCR Not Detected (NotDetected); Influenza B, PCR Not Detected (NotDetected)
[2022-10-23 09:28] LABS: Basophils # 0.1 K/mm3 (0-0.2); Basophils % 0.6 % (0.1-2.0); Eosinophils # 0.2 K/mm3 (0.0-0.4); Eosinophils % 1.5 % (0.1-12.0); Hematocrit 44.8 % (42.0-52.0); Hemoglobin 14.4 g/dL (14.1-18.0); Lymphocytes # 1.8 K/mm3 (0.7-4.5); Lymphocytes % 16.9 % (10-50); Mean Corpuscular HGB Conc 32.2 g/dL (31.8-35.4); Mean Corpuscular Hemoglobin 28.9 pg (27.0-31.2); Mean Corpuscular Volume 89.7 fl (80-94); Mean Platelet Volume 8.7 fl (7.4-10.4); Monocytes # 0.7 K/mm3 (0.1-1.0); Monocytes % 6.2 % (1.7-9.3); Neutrophils # 7.9 K/mm3 (1.8-7.8); Neutrophils % 74.7 % (37.0-80.0); Platelet Count 251 K/mm3 (142-424); Red Blood Count 4.99 M/mm3 (4.60-6.20); Red Cell Distribution Width 15.2 % (11.5-17.5); White Blood Count 10.6 K/mm3 (4.8-10.8)
--- NOTE | 2022-10-23 09:28 | ECG_ITS ---
APPROVED REPORT Exam: Resting ECG HR:56 bpm ECG Measurements Heart Rate 56 AXES QRSd 110 QRS -12 QT 447 T 44 QTc 439 Conclusion ATRIAL FIBRILLATION WITH SLOW VENTRICULAR RESPONSE WITH ABERRANT CONDUCTION OR VENTRICULAR PREMATURE COMPLEXES ABNORMAL RHYTHM ECG UNCONFIRMED REPORT Electronically signed by : Lj Medina MD 10/24/2022 14:02:43
[2022-10-23 09:33] LABS: Alanine Aminotransferase 25 U/L (12-78); Albumin Level 4.3 g/dl (3.5-5.0); Albumin/Globulin Ratio 1.2 (1.1-1.8); Alkaline Phosphatase 94 U/L (38-126); Anion Gap 13.4 mEq/L (5-15); Aspartate Amino Transferase 34 U/L (17-59); Bilirubin,Total 1.6 mg/dl (0.2-1.3); Blood Urea Nitrogen 10 mg/dl (9-20); Calcium 8.5 mg/dl (8.4-10.2); Carbon Dioxide 27 mmol/L (22.0-30.0); Chloride 92 mmol/L (98-107); Creatinine Clearance Estimated 114 mL/min (50-200); Estimated Glomerular Filt Rate 111 ml/min (>60); GFR (African American) 134 ML/MIN (>60); Globulin 3.6 g/dL (1.3-3.2); Glucose 111 mg/dl (74-100); INR 2.28 (0.9-1.1); Potassium 4.4 mmoL/L (3.5-5.1); Prothrombin Time 23.3 seconds (10.1-12.5); Sodium 128 mmol/L (136-145); Total Protein,Serum 7.9 g/dl (6.3-8.2)
[2022-10-23 09:44] LABS: VBG Base Excess 0.6 mmol/L (-2.4-2.3); VBG HCO3 25.7 mmol/L (23-30); VBG Oxygen Saturation 99.3 % (50-70); VBG PCO2 44.2 mmol/L (35-51); VBG PH 7.38 mmol/L (7.31-7.41)
[2022-10-23 09:45] LABS: NT Pro Brain Natriuretic Pep. 427 pg/mL (0-125); Troponin I 0.03 ng/ml (0.00-0.034)
--- NOTE | 2022-10-23 09:47 | HMH.EDGENADL ---
Discharge Plan Disposition Patient Disposition: Home, Self-Care Condition: Good Prescriptions Prescriptions: New (DME) walker Misc See Rx Instructions .Route Qty: 1 0RF Rx Instructions: As directed Medrol 2 mg tablet 4 mg PO DAILY Qty: 5 0RF No Action trazodone 50 mg tablet 50 mg PO QHS PRN (Reason: Insomnia) aspirin [Adult Low Dose Aspirin] 81 mg tablet,delayed release (DR/EC) 81 mg PO QDAY sildenafil [Viagra] 50 mg tablet 50 mg PO QDAY PRN (Reason: Erectile Dysfunction) levothyroxine [Synthroid] 125 mcg tablet 125 mcg PO DAILY Qty: 90 4RF albuterol sulfate 8.5 GM HFA aerosol inhaler 2 puff IH Q4HP PRN (Reason: Wheezing) Qty: 1 0RF warfarin 5 mg tablet 5 mg PO DIRECTED Rx Instructions: TAKE ONE TABLET BY MOUTH three days a week Stiolto Respimat 2.5-2.5 mcg/actuation mist 2 puff INHALATION DAILY gabapentin 300 mg capsule 300 mg PO TID losartan-hydrochlorothiazide 100-25 mg Tablet 1 tab PO DAILY warfarin 4 mg tablet See Rx Instructions .ROUTE .COMPLEX Rx Instructions: TAKE ONE TABLET BY MOUTH ONCE A DAY OR DIRECTED potassium chloride 20 mEq tablet,ER particles/crystals See Rx Instructions .ROUTE .COMPLEX Rx Instructions: TAKE ONE TABLET BY MOUTH FOUR TIMES A DAY furosemide 80 mg tablet See Rx Instructions .ROUTE .COMPLEX Rx Instructions: TAKE ONE TABLET BY MOUTH EVERY MORNING ropinirole 2 mg tablet See Rx Instructions .ROUTE .COMPLEX Rx Instructions: TAKE ONE TABLET BY MOUTH 2 TIMES A DAY digoxin 125 mcg (0.125 mg) tablet See Rx Instructions .ROUTE .COMPLEX Rx Instructions: TAKE ONE TABLET BY MOUTH ONCE A DAY Referrals Follow up/Referrals: Provider,Referral, MD [Primary Care Provider] - See instructions Activity Restrictions/Add. Instructions Additional Instructions/Restrictions: Please follow-up with your primary care provider. Please return to the emergency department if you develop any new or worsening symptoms or become concerned for your health. You have been provided with a prescription for a Medrol Dosepak, please take this as directed. Additionally, as we discussed, sodium levels have been steadily downtrending, recommend that you closely follow-up with your primary care provider regarding the sodium levels. Recommend that you may continue with a walker cane as needed. Clinical Impressions Clinical Impression: COPD exacerbation, Shortness of breath, Chronic hyponatremia Instructions Patient Instructions: DI for Chronic Obstructive Pulmonary Disease Discharge ED Provider: Mart Pollock I General Adult HPI General Chief complaint: Shortness of Breath/Dyspnea Stated complaint: SOA Time Seen by Provider: 10/23/22 09:08 Mode of Arrival: Ambulatory Source of Information: Patient Limitations: No Limitations Description of Symptoms (Recalled from ER Triage Doc. by RN): Pt. states he has been feeling weak, dizzy and short of breath since Monday. He states his shortness of breath has gotten worse. History of Present Illness HPI narrative: Patient is a 72-year-old male with history of A-fib on warfarin, hypothyroidism, COPD, hyperlipidemia who is presenting to the emergency department with multiple falls over the past week, shortness of breath. Also has lightheadedness and dizziness with standing. History was conducted with the patient at bedside. Patient states that he has had worsening shortness of breath, difficulty breathing and difficulty taking a deep breath since Monday. He reports that he has not been eating as well. Denies abdominal pain, chest pain. Patient reports that when he is walking, he becomes lightheaded and dizzy. Denies any lightheadedness, dizziness when he is sitting down. He believes that he has also had increased swelling in the bilateral lower extremities. Denies any fever, chills, cough, congestion. He reports comp
--- NOTE | 2022-10-23 10:28 | PC.NURSE ---
XR AT BEDSIDE
--- NOTE | 2022-10-23 10:41 | PC.NURSE ---
ED MD AT BEDSIDE TO REEVALUATE PT
--- NOTE | 2022-10-23 10:59 | PC.NURSE ---
rounded on pt, pt sitting up in bed eating a snack, reports feeling better, states no needs at this time. at BS, call button in reach
--- NOTE | 2022-10-23 12:40 | PC.NURSE ---
ambulated approx 75 feet with staff assist x1, pt not able to ambulate independently. pt agreeable to using a cane at home, requesting a walker, states pt has used a cane before but did not use it for long. Pt agrees with that he will try to use a walker and if not he will get a cane. Notified ER MD Pollock
== END 2022-10-23 13:01 | disposition home or self-care (01) ==
PROVIDERS: Emergency Provider Emergency Medicine
DX: J44.1 Chronic obstructive pulmonary disease with (acute) exacerbation (principal); E87.1 Hypo-osmolality and hyponatremia; I48.91 Unspecified atrial fibrillation; E03.9 Hypothyroidism, unspecified; E78.5 Hyperlipidemia, unspecified; R29.6 Repeated falls; I11.9 Hypertensive heart disease without heart failure; I25.10 Atherosclerotic heart disease of native coronary artery without angina pectoris; I42.9 Cardiomyopathy, unspecified; F17.210 Nicotine dependence, cigarettes, uncomplicated
CPT/HCPCS: 71045; 80053; 80162; 82803; 83880; 84484; 85025; 85610; 87636; 93005; 96361; 96374; 96375; 99285; J2405

== ENCOUNTER 2022-11-15 11:07 | Emergency (ER) | payer MEDICARE, OTHER, SELFPAY ==
[2022-11-15] VITALS (9 sets, daily range): BP systolic 98–134; BP diastolic 46–78; PULSE 57–78; RESP 20; TEMP 36.4–36.7; O2SAT 90–97; BMI 37.6
--- NOTE | 2022-11-15 11:31 | XR_ITS ---
FINAL REPORT CLINICAL HISTORY: L RIB PAIN COMPARISON: 10/23/2022 FINDINGS: A single portable view of the chest was obtained. Cardiomegaly is present along with pulmonary vascular congestion. The mediastinum is within normal limits. There is a mild right base opacity present, atelectasis or pneumonia likely. There is bilateral apical pleural thickening present. There are postoperative changes noted in the lower cervical spine. The bony thorax is intact. IMPRESSION: Mild right base opacity present, likely atelectasis or pneumonia. Cardiomegaly with pulmonary vascular congestion. Reviewed, Interpreted and Dictated by Shawn Dickens III, MD Transcribed by Padmini Purcell Authenticated and [facility]
[2022-11-15 11:39] LABS: Basophils # 0.1 K/mm3 (0-0.2); Basophils % 0.9 % (0.1-2.0); Chloride 97 mmol/L (98-107); Eosinophils # 0.3 K/mm3 (0.0-0.4); Eosinophils % 3.6 % (0.1-12.0); Hematocrit 46.9 % (42.0-52.0); Hemoglobin 15.2 g/dL (14.1-18.0); Lymphocytes # 1.8 K/mm3 (0.7-4.5); Lymphocytes % 22.2 % (10-50); Mean Corpuscular HGB Conc 32.3 g/dL (31.8-35.4); Mean Corpuscular Volume 92.7 fl (80-94); Mean Platelet Volume 8.8 fl (7.4-10.4); Monocytes # 0.5 K/mm3 (0.1-1.0); Monocytes % 5.7 % (1.7-9.3); Neutrophils # 5.5 K/mm3 (1.8-7.8); Neutrophils % 67.6 % (37.0-80.0); Platelet Count 255 K/mm3 (142-424); Potassium 3.8 mmoL/L (3.5-5.1); Red Blood Count 5.06 M/mm3 (4.60-6.20); Red Cell Distribution Width 15.5 % (11.5-17.5); Sodium 139 mmol/L (136-145); White Blood Count 8.2 K/mm3 (4.8-10.8)
[2022-11-15 11:41] LABS: Blood Urea Nitrogen 10 mg/dl (9-20)
[2022-11-15 11:42] LABS: Alanine Aminotransferase 27 U/L (12-78); Albumin Level 4.1 g/dl (3.5-5.0); Albumin/Globulin Ratio 1.1 (1.1-1.8); Alkaline Phosphatase 89 U/L (38-126); Anion Gap 12.8 mEq/L (5-15); Aspartate Amino Transferase 31 U/L (17-59); Carbon Dioxide 33 mmol/L (22.0-30.0); Creatinine Clearance Estimated 114 mL/min (50-200); Estimated Glomerular Filt Rate 95 ml/min (>60); GFR (African American) 115 ML/MIN (>60); Globulin 3.6 g/dL (1.3-3.2); Total Protein,Serum 7.7 g/dl (6.3-8.2)
[2022-11-15 11:43] LABS: Calcium 8.9 mg/dl (8.4-10.2); Glucose 180 mg/dl (74-100)
--- NOTE | 2022-11-15 11:48 | PC.NURSE ---
pt called out for some help, wanted readjusted in the bed
--- NOTE | 2022-11-15 11:52 | PC.NURSE ---
RAD at for CXR
--- NOTE | 2022-11-15 12:35 | CT_ITS ---
FINAL REPORT TECHNIQUE: Axial images through the abdomen and pelvis were performed without contrast. This study was performed with techniques to keep radiation doses as low as reasonably achievable, (ALARA). Individualized dose reduction techniques using automated exposure control or adjustment of mA and/or kV according to the patient's size were employed. CLINICAL HISTORY: left flank pain FINDINGS: ABDOMEN: There is mild bilateral pleural thickening. The heart size is normal. Limited images of the liver are unremarkable. There is probable mild gallbladder wall calcification and thickening. The spleen is normal. No adrenal mass is identified. The aorta is normal in caliber. There is no significant free fluid or adenopathy. There is no nephrolithiasis. There is no hydronephrosis. PELVIS: The appendix is normal. There is a moderate amount of stool throughout the colon. There is sigmoid diverticulosis without evidence of diverticulitis. There is mild bladder wall thickening. Bilateral inguinal hernias containing fat are identified. There is no significant free fluid or adenopathy. IMPRESSION: Probable mild gallbladder wall calcification and thickening. Sigmoid diverticulosis without evidence of diverticulitis. Bilateral inguinal hernias. Reviewed, Interpreted and Dictated by Shawn Dickens III, MD Transcribed by Radha Glover Authenticated and [facility]
--- NOTE | 2022-11-15 12:37 | HMH.EDGENADL ---
Discharge Plan Disposition Patient Disposition: Home, Self-Care Prescriptions Prescriptions: New ibuprofen 800 mg tablet 800 mg PO TID PRN (Reason: pain) 5 Days Qty: 20 0RF cyclobenzaprine 5 mg tablet 5 mg PO TID PRN (Reason: muscle spasm) 5 Days Qty: 15 0RF No Action trazodone 50 mg tablet 50 mg PO QHS PRN (Reason: Insomnia) aspirin [Adult Low Dose Aspirin] 81 mg tablet,delayed release (DR/EC) 81 mg PO QDAY sildenafil [Viagra] 50 mg tablet 50 mg PO QDAY PRN (Reason: Erectile Dysfunction) levothyroxine [Synthroid] 125 mcg tablet 125 mcg PO DAILY Qty: 90 4RF furosemide 40 mg tablet See Rx Instructions .ROUTE .COMPLEX Qty: 90 2RF Dose Instruction: TAKE ONE TABLET BY MOUTH ONCE A DAY Rx Instructions: TAKE ONE TABLET BY MOUTH ONCE A DAY albuterol sulfate 8.5 GM HFA aerosol inhaler 2 puff IH Q4HP PRN (Reason: Wheezing) Qty: 1 0RF warfarin 5 mg tablet 5 mg PO DIRECTED Rx Instructions: TAKE ONE TABLET BY MOUTH three days a week Stiolto Respimat 2.5-2.5 mcg/actuation mist 2 puff INHALATION DAILY gabapentin 300 mg capsule 300 mg PO TID losartan-hydrochlorothiazide 100-25 mg Tablet 1 tab PO DAILY warfarin 4 mg tablet See Rx Instructions .ROUTE .COMPLEX Rx Instructions: TAKE ONE TABLET BY MOUTH ONCE A DAY OR DIRECTED potassium chloride 20 mEq tablet,ER particles/crystals See Rx Instructions .ROUTE .COMPLEX Rx Instructions: TAKE ONE TABLET BY MOUTH FOUR TIMES A DAY ropinirole 2 mg tablet See Rx Instructions .ROUTE .COMPLEX Rx Instructions: TAKE ONE TABLET BY MOUTH 2 TIMES A DAY digoxin 125 mcg (0.125 mg) tablet See Rx Instructions .ROUTE .COMPLEX Rx Instructions: TAKE ONE TABLET BY MOUTH ONCE A DAY (DME) [facility] [place] See Rx Instructions .Route Qty: 1 0RF Rx Instructions: As directed Medrol 2 mg tablet 4 mg PO DAILY Qty: 5 0RF Referrals Follow up/Referrals: Raciel Wise [Primary Care Provider] - See instructions Activity Restrictions/Add. Instructions Additional Instructions/Restrictions: Your evaluation today including CAT scan chest x-ray blood test urine test did not yield any diagnosis of an emergent medical condition. It is possible you have constipation that could be causing your discomfort escalate MiraLAX as discussed. Without any tenderness on your exam but ongoing pain with movement that is most likely musculoskeletal and I advised that you take a muscle relaxer we discussed the risk and benefits of all of the pain medication that could be used. While you are on Coumadin there is some risk of bleeding with ibuprofen and could also raise her INR we discussed the risk and benefits of this. Please be aware that this could increase her bleeding risk if you choose to take it. Steroids are currently not indicated. You may take Tylenol instead of ibuprofen if you would like. Lastly opiates would be a fall risk to you and are not indicated. There remains some diagnostic uncertainty please return with any worsening symptoms. Also follow-up with primary care doctor you do have severe diverticulosis without evidence of diverticulitis in which you to follow-up with a GI doctor to get a colonoscopy. Clinical Impressions Clinical Impression: Acute left flank pain Discharge ED Provider: Jorge Alberto Sandoval General Adult HPI General Chief complaint: PAIN Stated complaint: left side pain, no accident Time Seen by Provider: 11/15/22 12:30 Mode of Arrival: Wheelchair Source of Information: Patient Limitations: No Limitations Description of Symptoms (Recalled from ER Triage Doc. by RN): Patient states he was riding in the car when he felt something go across his body and now his left sided rib pain that has continued to get worse since Monday. History of Present Illness HPI narrative: Patient is a 72-year-old male here with acute left pain in his flank that
--- NOTE | 2022-11-15 13:08 | PC.NURSE ---
Patient returned from radiology in wheelchair stating he did not want to get back in the bed. States he is more comfortable up in the chair.
[2022-11-15 13:40] LABS: Microscopic, Urine URINE MICROSCOPIC (MICROSCOPIC)
[2022-11-15 13:41] LABS: Appearance,Urine CLEAR (Clear); Bilirubin,Urine Negative (Negative); Blood, Urine Negative (Negative); Color,Urine YELLOW (Yellow); Glucose,Urine (UA) 1+ (Negative); Ketones,Urine Negative (Negative); Leukocyte Esterase,Urine Negative (Negative); Nitrate,Urine Negative (Negative); Protein,Urine Negative (Negative); Specific Gravity, Urine 1.015 (1.005-1.030)
[2022-11-15 13:47] LABS: Bacteria,Urine Trace /lpf; Squamous Epithelial Cell,Urine Occasional #/hpf (0-5); WBC,Urine Occasional #/hpf (0-3)
--- NOTE | 2022-11-15 13:50 | PC.NURSE ---
contacted rad to check on status of ct, states in locked status
== END 2022-11-15 14:40 | disposition home or self-care (01) ==
PROVIDERS: Emergency Provider Student in an Organized Health Care Education/Training Program; PCP Internal Medicine Endocrinology, Diabetes & Metabolism
DX: R07.81 Pleurodynia (principal); R10.9 Unspecified abdominal pain; I48.91 Unspecified atrial fibrillation; I25.10 Atherosclerotic heart disease of native coronary artery without angina pectoris; I11.9 Hypertensive heart disease without heart failure; E03.9 Hypothyroidism, unspecified; F17.210 Nicotine dependence, cigarettes, uncomplicated
CPT/HCPCS: 71045; 74176; 80053; 81001; 85025; 96374; 96375; 99285; J2405

== ENCOUNTER → 2022-12-23 07:31 | Outpatient (CLI) | payer MEDICARE, OTHER, SELFPAY ==
--- NOTE | 2022-12-23 07:32 | CA_ITS ---
APPROVED REPORT EXAM: Comprehensive 2D, Doppler, and color-flow Echocardiogram Signals Intelligence Superintendent: Madelin Catalan RDCS Ht: 5 ft 11 in Wt: 280lbs BSA: 2.43 BP: 136/69 mmHg Rhythm: Atrial Fibrillation Indications: AF,CM,COPD,SOA,SANTANA,HTN,HLP TDS PLAX/PSAX OBTAINED FROM SUB CHOSTAL VIEW 2D Dimensions LVOT 1.91 cm (M/F) 1.5-2.5 M-Mode Dimensions RVDd 4.36 cm (0.9-2.6) LA Diam 6.70 cm (1.9-4.0) LVDd 5.11 cm (3.5-5.7) Ao Diam 2.99 cm (2.0-3.7) LVDs 3.44 cm (3.5-5.7) IVSd 1.02 cm (0.6-1.1) PWd 1.35 cm (0.6-1.1) EF (Teich) 60.80% FS 32.70% EDV (Teich) 124.40 mL TAPSE 2.74 (<1.7) ESV (Teich) 48.80 mL LV Diastology E Decel Time 153.00 (160-240 msec) E/A Ratio 6.7 Mitral Valve MV E Max Alonso. 107.00 (40-130 cm/s) MV A Velocity 16.00 (40-130 cm/s) E/A Ratio 6.88 MV Decel. Time 153.00 (160-240 ms) MV PHT 45.00 ms Tricuspid Valve TR P. Velocity 265.00 cm/s RAP Estimate 10.00 mmHg RVSP 38.10 mmHg Left Ventricle The left ventricle is normal size. The left ventricular systolic function is normal. The left ventricular ejection fraction is within the normal range. There is normal left ventricular wall thickness. There is normal LV segmental wall motion. Diastolic function is indeterminate. LVEF is 55%. Right Ventricle The right ventricle is moderately dilated. The right ventricular systolic function is normal. Atria Left atrium is severely dilated. The right atrium size is severely dilated. There is no Doppler evidence of interatrial shunt. Aortic Valve The aortic valve opens well. There is no aortic valvular stenosis. Trace aortic regurgitation. Mitral Valve The mitral valve leaflets are normal in structure. No evidence of mitral valve stenosis. Mild mitral regurgitation. Tricuspid Valve The tricuspid valve leaflets are thin and pliable. Mild tricuspid regurgitation. RVSP is 30-35 mmHg. Pulmonic Valve The pulmonary valve is normal in structure. Trace pulmonic regurgitation. Great Vessels The aortic root is normal in size. The ascending aorta is not well visualized. IVC is normal in size and collapses >50% with inspiration. Pericardium There is no pericardial effusion. Other Information Study Quality: Technically Difficult Conclusion This was a technically difficult study due to poor accoustic windows. Normal biventricular systolic function. Moderately dilated RV. Severe biatrial dilation. No significant valvular stenosis or regurigtation visualized. RVSP 30-35 mmHg. Electronically signed by : Kathleen Jordan MD 12/25/2022 16:10:41
[2022-12-23 10:27] LABS: Alanine Aminotransferase 25 U/L (12-78); Albumin Level 4.1 g/dl (3.5-5.0); Alkaline Phosphatase 84 U/L (38-126); Anion Gap 13.2 mEq/L (5-15); Aspartate Amino Transferase 32 U/L (17-59); Bilirubin,Direct 0.2 mg/dl (0.0-0.4); Bilirubin,Indirect 0.8 mg/dL (0.0-0.9); Bilirubin,Unconjugated 0.8 mg/dL (0.0-1.1); Blood Urea Nitrogen 13 mg/dl (9-20); Calcium 8.8 mg/dl (8.4-10.2); Carbon Dioxide 30 mmol/L (22.0-30.0); Chloride 95 mmol/L (98-107); Chol/HDL Ratio 3.1 (1-3.5); Cholesterol 147 mg/dl (140-200); Estimated Glomerular Filt Rate 111 ml/min (>60); GFR (African American) 134 ML/MIN (>60); Glucose 113 mg/dl (74-100); HDL Cholesterol 47 mg/dl (40-60); Potassium 4.2 mmoL/L (3.5-5.1); Sodium 134 mmol/L (136-145); Total Protein,Serum 7.2 g/dl (6.3-8.2); Triglycerides 131 mg/dl (30-150); VLDL Cholesterol 26 mg/dL (0-40)
[2022-12-23 10:36] LABS: NT Pro Brain Natriuretic Pep. 449 pg/mL (0-125)
[2022-12-23 10:39] LABS: Direct LDL Cholesterol 85.97 mg/dL (100-129)
[2022-12-23 10:41] LABS: Free T4 (Free Thyroxine) 1.88 ng/dl (0.78-2.19)
[2022-12-23 10:58] LABS: Thyroid Stimulating Hormone 3.08 uIU/mL (0.465-4.68)
[2022-12-23 11:06] LABS: Basophils # 0.1 K/mm3 (0-0.2); Eosinophils # 0.3 K/mm3 (0.0-0.4); Eosinophils % 3.4 % (0.1-12.0); Hematocrit 43.6 % (42.0-52.0); Hemoglobin 14.8 g/dL (14.1-18.0); Lymphocytes # 2.1 K/mm3 (0.7-4.5); Lymphocytes % 25.1 % (10-50); Mean Corpuscular HGB Conc 33.9 g/dL (31.8-35.4); Mean Corpuscular Hemoglobin 30.9 pg (27.0-31.2); Mean Corpuscular Volume 91.2 fl (80-94); Mean Platelet Volume 8.9 fl (7.4-10.4); Monocytes # 0.7 K/mm3 (0.1-1.0); Neutrophils # 5.3 K/mm3 (1.8-7.8); Neutrophils % 62.5 % (37.0-80.0); Platelet Count 240 K/mm3 (142-424); Red Blood Count 4.78 M/mm3 (4.60-6.20); Red Cell Distribution Width 15.6 % (11.5-17.5); White Blood Count 8.4 K/mm3 (4.8-10.8)
== END ==
PROVIDERS: PCP Internal Medicine Endocrinology, Diabetes & Metabolism; Visit Provider Internal Medicine
DX: E78.5 Hyperlipidemia, unspecified (principal); F17.200 Nicotine dependence, unspecified, uncomplicated; I25.10 Atherosclerotic heart disease of native coronary artery without angina pectoris; I42.8 Other cardiomyopathies; I48.21 Permanent atrial fibrillation; Z95.5 Presence of coronary angioplasty implant and graft; E11.9 Type 2 diabetes mellitus without complications; I50.9 Heart failure, unspecified; R06.00 Dyspnea, unspecified; I63.9 Cerebral infarction, unspecified; I11.0 Hypertensive heart disease with heart failure
CPT/HCPCS: 36415; 80048; 80061; 80076; 83880; 84439; 84443; 85025; 93306

== ENCOUNTER → 2023-01-27 09:39 | Outpatient (CLI) | payer MEDICARE, OTHER, SELFPAY ==
--- NOTE | 2023-01-27 09:39 | CT_ITS ---
FINAL REPORT CLINICAL HISTORY: thoracic arotic aneurysm COMPARISON: 04/23/2022 FINDINGS: Thin section axial CT images of the chest were obtained with contrast. 3D reformatted images were also obtained. This study was performed with techniques to keep radiation doses as low as reasonably achievable (ALARA). Individualized dose reduction techniques using automated exposure control or adjustment of mA and/or kV according to the patient's size were employed. There is no evidence of pulmonary embolism. There is a 4.4 cm thoracic aortic aneurysm present. This is stable when compared to the prior exam of April. There is global cardiomegaly and a small pericardial effusion also noted, stable. Severe coronary artery calcifications are again noted. Multiple borderline in size axillary nodes are present, unchanged. There is no evidence of mediastinal or hilar mass or adenopathy. There is no evidence of pulmonary mass or nodule. No localized inflammatory process is seen within the lungs. Chronic anterior left fifth and sixth rib fractures are present, also noted on the prior exam. Limited images of the upper abdomen reveal mild fatty infiltration of the liver and questionable small gallstones in the gallbladder. There is a mild chronic L1 superior endplate compression fracture, stable. IMPRESSION: 4.4 cm thoracic aortic aneurysm, stable. Global cardiomegaly and small pericardial effusion, also stable, along with severe coronary artery calcifications. Multiple borderline in size axillary nodes, also noted on the prior exam. Questionable small gallstones in the gallbladder, recommend ultrasound if clinically indicated. Reviewed, Interpreted and Dictated by Shawn Dickens III, MD Transcribed by Padmini Purcell Authenticated and . [facility]
[2023-01-27 10:23] LABS: Blood Urea Nitrogen 14 mg/dl (9-20); Estimated Glomerular Filt Rate 95 ml/min (>60); GFR (African American) 115 ML/MIN (>60)
== END ==
PROVIDERS: PCP Internal Medicine Endocrinology, Diabetes & Metabolism; Visit Provider Physician Assistant
DX: E78.5 Hyperlipidemia, unspecified (principal); I11.9 Hypertensive heart disease without heart failure; I25.10 Atherosclerotic heart disease of native coronary artery without angina pectoris; I42.9 Cardiomyopathy, unspecified; I48.91 Unspecified atrial fibrillation; I71.20 Thoracic aortic aneurysm, without rupture, unspecified; R06.02 Shortness of breath; Z95.5 Presence of coronary angioplasty implant and graft; F17.200 Nicotine dependence, unspecified, uncomplicated
CPT/HCPCS: 36415; 71275; 82565; 84520; Q9967

== ENCOUNTER 2023-02-20 11:02 | Emergency (ER) | payer MEDICARE, OTHER, SELFPAY ==
[2023-02-20 11:03] VITALS: BP 120/53; PULSE 62; RESP 24; TEMP 36.4; O2SAT 95; BMI 37.9
[2023-02-20 11:08] VITALS: BP 120/53; PULSE 68; RESP 20; O2SAT 96
--- NOTE | 2023-02-20 11:08 | ECG_ITS ---
APPROVED REPORT Exam: Resting ECG HR:57 bpm ECG Measurements Heart Rate 57 AXES QRSd 114 QRS 47 QT 439 T -6 QTc 433 Conclusion ATRIAL FIBRILLATION WITH SLOW VENTRICULAR RESPONSE LOW QRS VOLTAGE IN EXTREMITY LEADS [QRS DEFLECTION < 0.5 mV IN LIMB LEADS] MODERATE INTRAVENTRICULAR CONDUCTION DELAY [110+ ms QRS DURATION] ABNORMAL RHYTHM ECG UNCONFIRMED REPORT Electronically signed by : Lj Medina MD 02/20/2023 19:16:59
--- NOTE | 2023-02-20 11:21 | XR_ITS ---
FINAL REPORT CLINICAL HISTORY: SHORTNESS OF BREATH COMPARISON: 11/15/2022 FINDINGS: Moderate cardiomegaly is once again noted, stable since the prior chest x-ray. There are coarse interstitial opacities noted in the lung bases bilaterally. The mediastinum is normal. There are no pleural effusions. There is no pneumothorax. The patient has undergone anterior cervical fusion. IMPRESSION: Moderate cardiomegaly and coarse interstitial opacities noted in the lung bases bilaterally, stable since the prior chest x-ray. Reviewed, Interpreted and Dictated by Srinivas Conteh MD Transcribed by Padmini Purcell Authenticated and [facility]
[2023-02-20 11:35] LABS: MANUAL DIFFERENTIAL MANUAL DIFFERENTIAL (MANUAL DIFF)
--- NOTE | 2023-02-20 11:35 | PC.NURSE ---
second set of cultures drawn and sent to lab
[2023-02-20 11:44] LABS: Basophils # 0.1 K/mm3 (0-0.2); Basophils % 0.5 % (0.1-2.0); Eosinophils # 0.2 K/mm3 (0.0-0.4); Eosinophils % 1.8 % (0.1-12.0); Hematocrit 37.2 % (42.0-52.0); Hemoglobin 12.4 g/dL (14.1-18.0); Lymphocytes % 16.2 % (10-50); Mean Corpuscular HGB Conc 33.4 g/dL (31.8-35.4); Mean Corpuscular Hemoglobin 30.6 pg (27.0-31.2); Mean Corpuscular Volume 91.6 fl (80-94); Mean Platelet Volume 8.8 fl (7.4-10.4); Monocytes # 0.9 K/mm3 (0.1-1.0); Monocytes % 7.3 % (1.7-9.3); Neutrophils % 74.1 % (37.0-80.0); Platelet Count 277 K/mm3 (142-424); Red Blood Count 4.06 M/mm3 (4.60-6.20); Red Cell Distribution Width 15.9 % (11.5-17.5); White Blood Count 12.2 K/mm3 (4.8-10.8)
[2023-02-20 11:45] LABS: Chloride 92 mmol/L (98-107); Sodium 134 mmol/L (136-145)
[2023-02-20 11:47] LABS: VBG HCO3 34.2 mmol/L (23-30); VBG Oxygen Saturation 65.6 % (50-70); VBG PCO2 60.3 mmol/L (35-51); VBG PH 7.37 mmol/L (7.31-7.41); VBG PO2 34.4 mmol/L (28-40); VBG Total CO2 36.1 mmol/L (23-27)
[2023-02-20 11:48] LABS: Alanine Aminotransferase 28 U/L (12-78); Albumin Level 4.2 g/dl (3.5-5.0); Albumin/Globulin Ratio 1.2 (1.1-1.8); Alkaline Phosphatase 87 U/L (38-126); Aspartate Amino Transferase 31 U/L (17-59); Blood Urea Nitrogen 15 mg/dl (9-20); Carbon Dioxide 37 mmol/L (22.0-30.0); Creatinine Clearance Estimated 115 mL/min (50-200); Estimated Glomerular Filt Rate 95 ml/min (>60); GFR (African American) 115 ML/MIN (>60); Globulin 3.4 g/dL (1.3-3.2); Total Protein,Serum 7.6 g/dl (6.3-8.2)
[2023-02-20 11:49] LABS: Calcium 8.4 mg/dl (8.4-10.2); Glucose 100 mg/dl (74-100)
[2023-02-20 12:00] LABS: NT Pro Brain Natriuretic Pep. 669 pg/mL (0-125)
[2023-02-20 12:02] LABS: Troponin I 0.02 ng/ml (0.00-0.034)
[2023-02-20 12:15] VITALS: PULSE 55; O2SAT 91
--- NOTE | 2023-02-20 12:19 | PC.NURSE ---
Dr. Pollock at BS for pt eval
--- NOTE | 2023-02-20 12:26 | PC.NURSE ---
RAD at for CXR
--- NOTE | 2023-02-20 12:54 | PC.NURSE ---
pt doing neb tx and son continues to wake him up during tx.
[2023-02-20 13:02] LABS: Eosinophils % 1 % (0-3); Lymphocytes % 16 % (10-50); Monocytes % 3 % (2-9); Neutrophils % 80 % (42-76); Platelet Estimate Normal; RBC Morphology Normal; Total Cells Counted 100
[2023-02-20 13:17] VITALS: PULSE 52; O2SAT 96
--- NOTE | 2023-02-20 13:45 | PC.NURSE ---
Pt given drink
--- NOTE | 2023-02-20 14:08 | PC.NURSE ---
Second trop drawn and sent to lab. Dr. Pollock at BS to update pt/son on results and POC
--- NOTE | 2023-02-20 14:20 | HMH.EDGENADL ---
Discharge Plan Disposition Patient Disposition: Home, Self-Care Condition: Fair Prescriptions Prescriptions: New doxycycline hyclate 100 mg capsule 100 mg PO BID 5 Days Qty: 10 0RF prednisone 10 mg tablet 10 mg PO DAILY 5 Days Qty: 5 0RF No Action torsemide 20 mg tablet 60 mg PO DIRECTED Qty: 90 2RF Rx Instructions: 40 mg in the AM 20 mg in the afternoon losartan 100 mg tablet 100 mg PO DAILY Qty: 30 5RF trazodone 50 mg tablet 50 mg PO QHS PRN (Reason: Insomnia) aspirin [Adult Low Dose Aspirin] 81 mg tablet,delayed release (DR/EC) 81 mg PO QDAY levothyroxine [Synthroid] 125 mcg tablet 125 mcg PO DAILY Qty: 90 4RF digoxin 125 mcg (0.125 mg) tablet See Rx Instructions .ROUTE .COMPLEX Qty: 90 1RF Dose Instruction: TAKE ONE TABLET BY MOUTH ONCE A DAY Rx Instructions: TAKE ONE TABLET BY MOUTH ONCE A DAY potassium chloride 20 mEq tablet,ER particles/crystals See Rx Instructions .ROUTE .COMPLEX Qty: 360 3RF Rx Instructions: TAKE ONE TABLET BY MOUTH FOUR TIMES A DAY albuterol sulfate 8.5 GM HFA aerosol inhaler 2 puff IH Q4HP PRN (Reason: Wheezing) Qty: 1 0RF ibuprofen 800 mg tablet 800 mg PO TID PRN (Reason: pain) 5 Days Qty: 20 0RF cyclobenzaprine 5 mg tablet 5 mg PO TID PRN (Reason: muscle spasm) 5 Days Qty: 15 0RF warfarin 5 mg tablet 5 mg PO DIRECTED Rx Instructions: TAKE ONE TABLET BY MOUTH three days a week Stiolto Respimat 2.5-2.5 mcg/actuation mist 2 puff INHALATION DAILY gabapentin 300 mg capsule 300 mg PO TID warfarin 4 mg tablet See Rx Instructions .ROUTE .COMPLEX Rx Instructions: TAKE ONE TABLET BY MOUTH ONCE A DAY OR DIRECTED ropinirole 2 mg tablet See Rx Instructions .ROUTE .COMPLEX Rx Instructions: TAKE ONE TABLET BY MOUTH 2 TIMES A DAY (DME) [facility] See Rx Instructions .Route Qty: 1 0RF Rx Instructions: As directed Referrals Follow up/Referrals: Robb Wise PA [Primary Care Provider] - See instructions Activity Restrictions/Add. Instructions Additional Instructions/Restrictions: Please follow-up with your primary care provider. Please return to the emergency department if you develop any new or worsening symptoms or become concerned for your health. Clinical Impressions Clinical Impression: Acute exacerbation of chronic obstructive pulmonary disease Instructions Patient Instructions: DI for Shortness of Breath Discharge ED Provider: Mart Pollock I General Adult HPI General Chief complaint: Shortness of Breath/Dyspnea Stated complaint: SOA Time Seen by Provider: 02/20/23 11:07 Mode of Arrival: Wheelchair Source of Information: Patient Limitations: No Limitations Description of Symptoms (Recalled from ER Triage Doc. by RN): PT REPORTS INCREASED SHORTNESS OF BREATH FOR A COUPLE OF WEEKS. REPORTS COUGH. DENIES FEVER, CHILLS. NO PAIN REPORTED History of Present Illness HPI narrative: Patient is a 72-year-old male with history of A-fib on warfarin, CAD, hypertension, hypothyroidism, COPD and prior smoking history who is presenting to the emergency department with multiple days, weeks of shortness of breath, increased productive cough. History was conducted to the patient as well as his son at bedside. Patient states that his symptoms have been longstanding, he has had a cough that is productive of different phlegm compared to his baseline. Over the past several days he has also been more short of breath than his baseline. 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 He has not had any nausea, vomiting. He is otherwise been eating and drinking well. Denies abdominal pain, fever, congestion, runny nose. Patient has attempted breathing treatments at home without improvement in symptoms. Related Data Home
--- NOTE | 2023-02-20 14:28 | PC.NURSE ---
pt to restroom per wheelchair with son
[2023-02-20 14:34] VITALS: BP 120/53; PULSE 54; RESP 20; TEMP 36.9; O2SAT 95
[2023-02-20 14:58] LABS: Troponin I 0.01 ng/ml (0.00-0.034)
== END 2023-02-20 14:36 | disposition home or self-care (01) ==
PROVIDERS: Emergency Provider Emergency Medicine; PCP Physician Assistant
DX: J44.1 Chronic obstructive pulmonary disease with (acute) exacerbation (principal); R05.9 Cough, unspecified; I48.91 Unspecified atrial fibrillation; I25.10 Atherosclerotic heart disease of native coronary artery without angina pectoris; I11.9 Hypertensive heart disease without heart failure; E03.9 Hypothyroidism, unspecified; F17.210 Nicotine dependence, cigarettes, uncomplicated
CPT/HCPCS: 71045; 80053; 82803; 83880; 84484; 85007; 85014; 85018; 85048; 85049; 93005; 96374; 96375; 99285

== ENCOUNTER → 2023-03-02 09:48 | Outpatient (CLI) | payer MEDICARE, OTHER, SELFPAY ==
[2023-03-02 10:56] LABS: Chloride 93 mmol/L (98-107)
[2023-03-02 10:57] LABS: Potassium 4.2 mmoL/L (3.5-5.1); Sodium 137 mmol/L (136-145)
[2023-03-02 11:00] LABS: Blood Urea Nitrogen 13 mg/dl (9-20); Calcium 8.4 mg/dl (8.4-10.2); Estimated Glomerular Filt Rate 95 ml/min (>60); GFR (African American) 115 ML/MIN (>60); Glucose 169 mg/dl (74-100)
[2023-03-02 11:16] LABS: Anion Gap 13.2 mEq/L (5-15); Carbon Dioxide 35 mmol/L (22.0-30.0)
== END ==
PROVIDERS: Nurse Practitioner Family; PCP Physician Assistant; Visit Provider Internal Medicine
DX: E78.5 Hyperlipidemia, unspecified (principal); G47.9 Sleep disorder, unspecified; I11.9 Hypertensive heart disease without heart failure; I25.10 Atherosclerotic heart disease of native coronary artery without angina pectoris; I42.9 Cardiomyopathy, unspecified; I48.91 Unspecified atrial fibrillation; I71.20 Thoracic aortic aneurysm, without rupture, unspecified; R06.02 Shortness of breath; Z95.5 Presence of coronary angioplasty implant and graft; F17.200 Nicotine dependence, unspecified, uncomplicated
CPT/HCPCS: 36415; 80048

== ENCOUNTER 2023-03-14 09:43 | Outpatient (CLI) | payer MEDICARE, OTHER, SELFPAY | END 2023-03-14 23:59 | LOC: LAB 09:45 | PROVIDERS: Visit Provider Nurse Practitioner | DX: I48.21 Permanent atrial fibrillation (principal) | CPT/HCPCS: 36415; 80162 ==

== ENCOUNTER 2023-03-30 15:07 | Outpatient (CLI) | payer MEDICARE, OTHER, SELFPAY | END 2023-03-30 23:59 | LOC: RT 15:09 | PROVIDERS: PCP Nurse Practitioner; Visit Provider Nurse Practitioner | DX: G47.33 Obstructive sleep apnea (adult) (pediatric) (principal); G47.36 Sleep related hypoventilation in conditions classified elsewhere; I10 Essential (primary) hypertension | CPT/HCPCS: G0399 ==

== ENCOUNTER 2023-04-18 10:19 | Outpatient (CLI) | payer MEDICARE, OTHER, SELFPAY | END 2023-04-18 23:59 | LOC: RT 10:21 | PROVIDERS: Visit Provider Physician Assistant | DX: E78.5 Hyperlipidemia, unspecified (principal); F17.200 Nicotine dependence, unspecified, uncomplicated; G47.33 Obstructive sleep apnea (adult) (pediatric); I10 Essential (primary) hypertension; I25.10 Atherosclerotic heart disease of native coronary artery without angina pectoris; I31.39 Other pericardial effusion (noninflammatory); I48.91 Unspecified atrial fibrillation; I71.20 Thoracic aortic aneurysm, without rupture, unspecified; J44.9 Chronic obstructive pulmonary disease, unspecified; K80.20 Calculus of gallbladder without cholecystitis without obstruction; R06.00 Dyspnea, unspecified; R06.02 Shortness of breath; R42 Dizziness and giddiness; R55 Syncope and collapse; Z79.01 Long term (current) use of anticoagulants; Z95.5 Presence of coronary angioplasty implant and graft; I42.8 Other cardiomyopathies | CPT/HCPCS: 93270 ==

== ENCOUNTER 2023-05-02 10:09 | Outpatient (CLI) | payer MEDICARE, OTHER, SELFPAY ==
[2023-05-02 11:58] LABS: Free T4 (Free Thyroxine) 1.41 ng/dl (0.78-2.19)
[2023-05-02 12:24] LABS: Thyroid Stimulating Hormone 4.49 uIU/mL (0.465-4.68)
== END 2023-05-02 23:59 ==
PROVIDERS: PCP Physician Assistant; Visit Provider Otolaryngology
DX: E03.9 Hypothyroidism, unspecified (principal)
CPT/HCPCS: 36415; 84439; 84443

== ENCOUNTER 2023-05-04 06:50 | Outpatient (CLI) | payer MEDICARE, OTHER, SELFPAY ==
--- NOTE | 2023-05-04 06:54 | CT_ITS ---
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 A noncontrast coronary calcium scan was performed. A CT attenuation threshold of 130 Hounsfield units (HU) was used for the detection of calcium in contiguous voxels of 1 sq mm in area to be counted as individual lesions. Bolus tracking in the ascending aorta with a threshold of 180 HU was performed. Immediately afterwards, ECG synchronized cardiac CT was then performed from the cardiac base to apex using retrospective gating with ECG tube current modulation. A total of 85 mL of Isovue 370 mg/mL contrast medium was administered at 5 mL/sec followed by a saline flush using a biphasic injection protocol. A tube voltage of 120 KVp was used. The patient received the following medications prior to the cardiac CT. 25 mg of oral metoprolol 7.5 mg of oral ivabradine 0.8 mg of sublingual nitroglycerin The average heart rate at the time of acquisition was 52 bpm and regular. Image Reconstruction Transaxial images were reconstructed at 0.67 mm slide thickness. Data was reviewed interactively on an advanced workstation capable of 2 and 3-dimensional displays in all conventional reconstruction formats, including multiplanar reformations, maximum intensity projections, curved multiplanar reformations, and volume rendered reconstructions. When applicable, selected routine images describing the relevant coronary anatomy and pathology were saved and sent to PACS. Complications None Technical Quality Overall image quality was good. Coronary artery opacification was adequate. Total DLP (Dose-Length Product) is 1913.1 mGy-cm. The reported value represents the total of one or more individual components during the CT acquisition of this date and at this time, and as such, the same value may appear in more than one CT report depending on the interpreting/reporting physicians. COMPARISON None FINDINGS CT Coronary Calcium Scoring LMA (Left Main Artery) = 618 LAD (Left Anterior Descending) = 485 LCX (Left Coronary Circumflex) = 619 RCA (Right Coronary Artery) = 388 Total Calcium Score = 2110 using the AJ-130 method. The observed calcium score of 2110 is at 92nd percentile for subjects of the same age, sex, and race/ethnicity. The interpretation of the calcium heart score is based on the following continuum*: 0 = no calcified plaque detected (risk of coronary artery disease is very low ??? less than 5%) 1-10 = calcium detected in extremely minimal levels (risk of coronary diseases is still low ??? less than 10%) 11-100 = mild levels of plaque detected with certainty (mild or minimal narrowing of heart arteries is likely) 101-400 = definite,at least moderate levels of plaque detected (relatively high risk of a heart attack within 3-5 years) >401-999 = extensive levels of plaque detected (high risk of heart attack, high levels of vascular disease are present, high likelihood of at least one significant coronary narrowing) *The calcium heart score quantifies the burden of coronary calcification/plaque in the coronary arteries. The calcium heart score is not able to evaluate the presence or burden of non-calcified (i.e. soft) plaque. There is also identifiable calcification in the aortic valve, and the ascending and descending thoracic aorta. Coronary CT Angiography The coronary arterial system is left dominant. Quantitative Stenosis Grading: Left Main (LM): The left main originates normally from the left sinus of Valsalva. The LM bifurcates into the left anterior descending artery and left circumflex artery. There is extensive calcification along the ostial and proximal LM, with approximately 50-70% luminal stenosis. Left Anterior Descending (LAD) and Diagonal Branches: The LAD gives off 3 diagonal branch(es). There is extensive calcification along the LAD and its diagonal branches, with up to 70-90% luminal stenosis. There is no evidence of LAD-myocardial bridge. Left Circumflex (LCX) and Obtuse Marginals (OM): The LCX gives off 2 Obtuse Marginal (OM) branches. There is calcification along the LCx and its OM branches with up to 50% luminal stenosis Right Coronary Artery (RCA): The RCA originates normally from the right sinus of Valsalva. The RCA is a small caliber vessel. There is an inadequate opacification of the RCA, suggestive of possible subtotal or total occlusion. Non-Coronary Cardiac Findings: Analysis of the left ventricular (LV) structure and function was performed after 3-D reconstruction of the LV from axial images, with user-corrected automatic contouring for assessment of LV volumes and user-defined reconstruction from oblique planes for measurement of 3-D cardiac structure and function. -The left ventricle systolic function is normal (LVEF 53%) -There is incomplete opacification of the distal left atrial appendage. This is likely suggestive of incomplete IV contrast flow into the distal appendage, but cannot entirely rule out true perfusion defect. Two right pulmonary veins and two left pulmonary veins drain normally into the left atrium. -No pericardial thickening or calcification. -Central and branch pulmonary arteries in the [id number] are unremarkable. -Thoracic aorta within the visualized thoracic aortic-branches in the pvmpz-wh-[id number] is unremarkable. Extracardiac Structures No significant extra-cardiac findings. Note, however, that this study is focused on the cardiac findings. IMPRESSION -Extensive coronary calcification with an Agatston score = 2110 using the AJ-130 method. -The observed calcium score of 2110 is at 92nd percentile for subjects of the same age, sex, and race/ethnicity. -Multivessel atherosclerotic coronary disease with significant flow-limiting atherosclerosis of the coronary arteries, including the left main and LAD, as well as possible subtotal/total occlusion of the RCA. -CAD-RADS 5. Management recommendations per ACC/AHA guidelines*, as clinically appropriate. *Recommendations: CAD RADS 0: Reassurance. Consider non-atherosclerotic causes of chest pain. CAD RADS 1: Consider non-atherosclerotic causes of chest pain. Consider preventive therapy and risk factor modification. CAD RADS 2: Consider non-atherosclerotic causes of chest pain. Consider preventive therapy and risk factor modification, particularly for patients with nonobstructive plaque in multiple segments. CAD RADS 3: Consider further functional testing. Consider symptom-guided anti-ischemic and preventive pharmacotherapy as well as risk factor modification per published guideline statements. CAD RADS 4A: Consider further functional testing or invasive coronary angiography with revascularization per published guideline statements. Consider symptom-guided anti-ischemic and preventive pharmacotherapy as well as risk factor modification per published guideline statements. CAD RADS 4B: Invasive coronary angiography recommended with revascularization per published guideline statements. Consider symptom-guided anti-ischemic and preventive pharmacotherapy as well as risk factor modification per published guideline statements. CAD RADS 5: Consider invasive angiography and/or viability assessment with revascularization per published guideline statements. Consider symptom-guided anti-ischemic and preventive pharmacotherapy as well as risk factor modification per published guideline statements. CRITICAL RESULT None COMMUNICATION Per this written report The coronary and cardiac findings of this CCTA were reviewed, reported, and signed by Ned Jordan MD (E Commerce Web Developer) Conclusion Electronically signed by : Kathleen Jordan MD 05/11/2023 16:46:03
[2023-05-04 07:24] VITALS: BP 144/68; PULSE 59; RESP 16; TEMP 36.2; O2SAT 91
[2023-05-04 07:25] VITALS: BMI 39.0
[2023-05-04] MEDS: IVABRADINE HCL 7.5MG TABLET 7.5 MG PO (07:30)
[2023-05-04] MEDS: METOPROLOL TARTRATE 25MG TABLET *IVABRADINE+METOPROLOL REGIMINE 25 MG PO (07:30)
[2023-05-04 08:10] LABS: Blood Urea Nitrogen 20 mg/dl (9-20); Calcium 8.7 mg/dl (8.4-10.2); Carbon Dioxide 35 mmol/L (22.0-30.0); Chloride 99 mmol/L (98-107); Creatinine Clearance Estimated 118 mL/min (50-200); Estimated Glomerular Filt Rate 95 ml/min (>60); GFR (African American) 115 ML/MIN (>60); Glucose 106 mg/dl (74-100); Sodium 139 mmol/L (136-145)
[2023-05-04 08:25] VITALS: BP 131/63; PULSE 52; RESP 18; O2SAT 92
[2023-05-04] MEDS: NITROGLYCERIN 0.4MG SL TABLET 0.800000000000000044 MG SL (08:30)
[2023-05-04 08:40] VITALS: BP 99/51; PULSE 68; RESP 18; O2SAT 92
[2023-05-04 08:45] VITALS: BP 111/55; PULSE 57; RESP 18; O2SAT 92
[2023-05-04] MEDS: 0.9 % SODIUM CHLORIDE 50 ML VIAL IV (08:47)
[2023-05-04] MEDS: IOPAMIDOL-370 (76%);100ML BOTTLE 85 ML IV (08:47)
== END 2023-05-04 09:17 | disposition home or self-care (01) ==
PROVIDERS: PCP Physician Assistant; Visit Provider Physician Assistant
DX: E78.5 Hyperlipidemia, unspecified (principal); F17.200 Nicotine dependence, unspecified, uncomplicated; G47.33 Obstructive sleep apnea (adult) (pediatric); I10 Essential (primary) hypertension; I25.10 Atherosclerotic heart disease of native coronary artery without angina pectoris; I31.39 Other pericardial effusion (noninflammatory); I48.91 Unspecified atrial fibrillation; I71.20 Thoracic aortic aneurysm, without rupture, unspecified; J44.9 Chronic obstructive pulmonary disease, unspecified; K80.20 Calculus of gallbladder without cholecystitis without obstruction; R06.02 Shortness of breath; R42 Dizziness and giddiness; R55 Syncope and collapse; Z79.01 Long term (current) use of anticoagulants; Z95.5 Presence of coronary angioplasty implant and graft; I42.8 Other cardiomyopathies; Z51.81 Encounter for therapeutic drug level monitoring
CPT/HCPCS: 75571; 75574; 80048; Q9967

== ENCOUNTER 2023-05-08 14:40 | Outpatient (CLI) | payer MEDICARE, OTHER, SELFPAY ==
[2023-05-08 15:50] VITALS: PULSE 73; PULSE 76
[2023-05-08] MEDS: ALBUTEROL 0.083% 2.5 MG/3 ML NEB IH (16:50)
== END 2023-05-08 23:59 ==
LOC: RT 14:42
PROVIDERS: PCP Physician Assistant; Visit Provider Specialist
DX: G47.33 Obstructive sleep apnea (adult) (pediatric) (principal); G47.34 Idiopathic sleep related nonobstructive alveolar hypoventilation
CPT/HCPCS: 94060; 94618; 94640; 94726; 94729

== ENCOUNTER 2023-05-23 09:14 | Day surgery (SDC) | payer MEDICARE, OTHER, SELFPAY ==
[2023-05-23] VITALS (12 sets, daily range): BP systolic 108–158; BP diastolic 54–99; PULSE 45–73; RESP 17–18; TEMP 36.4; O2SAT 91–99; BMI 37.8
--- NOTE | 2023-05-23 07:14 | IR_ITS ---
APPROVED REPORT Patient Location: Outpatient PROCEDURES Left heart catheterization Left ventriculogram Selective coronary angiogram Selective engagement of the left subclavian artery with left subclavian artery angiography Informed consent was obtained prior to the procedure. COMPLICATIONS NONE Estimated Blood Loss: LESS THAN 10 ML TECHNIQUE One percent lidocaine was used to anesthetize the right groin. The right femoral artery was accessed via the Seldinger technique. A 4-Mohawk sheath was placed in the right femoral artery. The JL-4 and JR-4 catheter was also used to perform left heart catheterization left ventriculogram and selective coronary angiogram. After was decided patient would go to bypass surgery the JR4 catheter was placed in left subclavian artery to assure patency with no evidence of stenosis. At the end of the procedure the patient was transferred to the post-op holding area in stable condition for arterial sheath removal. ANGIOGRAPHIC RESULTS The left main artery Has an ostial 70% stenosis The left anterior descending artery Has an ostial calcified 90% stenosis with remaining vessel being widely patent The circumflex artery Dominant with mild atheromatous plaque The right coronary artery Is proximally occluded with the distal vessel filling via erag-wi-bncog collaterals The LYNCH ventriculogram reveals Dilated ventricle ejection fraction 45 to 50% The left ventricular end-diastolic pressure 20 mmHg Left subclavian artery widely patent as is the left internal mammary artery Left vertebral artery has an ostial calcified 90% stenosis IMPRESSION Critical three-vessel coronary disease as described above Dilated ventricle with slightly reduced ejection fraction Mildly elevated LVEDP Patent left subclavian artery and left internal mammary artery Severely diseased ostial left vertebral artery PLAN 1. Continue statin and aspirin 2. Patient will be referred for CABG and possible maze procedure at [facility] 3. Ongoing risk factor modification Electronically signed by : Otf Tomlin MD 05/23/2023 10:50:03
[2023-05-23 09:37] LABS: Basophils # 0.1 K/mm3 (0-0.2); Basophils % 1.1 % (0.1-2.0); Eosinophils # 0.3 K/mm3 (0.0-0.4); Eosinophils % 3.6 % (0.1-12.0); Hematocrit 41.7 % (42.0-52.0); Hemoglobin 13.3 g/dL (14.1-18.0); Lymphocytes # 2.1 K/mm3 (0.7-4.5); Lymphocytes % 26.7 % (10-50); Mean Corpuscular HGB Conc 31.8 g/dL (31.8-35.4); Mean Corpuscular Hemoglobin 29.8 pg (27.0-31.2); Mean Corpuscular Volume 93.8 fl (80-94); Mean Platelet Volume 9.2 fl (7.4-10.4); Monocytes # 0.5 K/mm3 (0.1-1.0); Monocytes % 6.6 % (1.7-9.3); Neutrophils % 62.1 % (37.0-80.0); Platelet Count 267 K/mm3 (142-424); Red Blood Count 4.45 M/mm3 (4.60-6.20); Red Cell Distribution Width 16.7 % (11.5-17.5)
[2023-05-23 09:46] LABS: INR 1.34 (0.9-1.1); Prothrombin Time 14.2 seconds (10.1-12.5)
[2023-05-23 10:02] LABS: Anion Gap 9.2 mEq/L (5-15); Blood Urea Nitrogen 16 mg/dl (9-20); Carbon Dioxide 33 mmol/L (22.0-30.0); Chloride 102 mmol/L (98-107); Creatinine Clearance Estimated 114 mL/min (50-200); Estimated Glomerular Filt Rate 83 ml/min (>60); GFR (African American) 100 ML/MIN (>60); Glucose 105 mg/dl (74-100); Potassium 4.2 mmoL/L (3.5-5.1); Sodium 140 mmol/L (136-145)
[2023-05-23] MEDS: HEPARIN 1,000 UNITS/500ML NS (CATH LAB) 3000 UNIT IV (10:20)
[2023-05-23] MEDS: 0.9 % SODIUM CHLORIDE 500 ML 25 ML IV (10:20)
[2023-05-23] MEDS: diphenhydrAMINE 50MG/ML VIAL 50 MG IV (10:21)
[2023-05-23] MEDS: HEPARIN 1,000 UNITS/ML 10ML VIAL (CATH LAB) 10000 UNIT IV (10:21)
[2023-05-23] MEDS: NITROGLYCERIN 800MCG/8ML SYR (CATH LAB) 800 MCG IA (10:21)
[2023-05-23] MEDS: LIDOCAINE 1% 10ML MDV 20 ML IJ (10:21)
[2023-05-23] MEDS: VERAPAMIL 2.5MG/ML 2ML VIAL 2.5 MG IV (10:21)
[2023-05-23] MEDS: FENTANYL 100MCG/2ML VIAL 25 MCG IV (10:38)
[2023-05-23] MEDS: MIDAZOLAM HCL 1MG/1ML 5ML VIAL 1 MG IV (10:38)
[2023-05-23] MEDS: IOPAMIDOL-370 (76%);100ML BOTTLE 60 ML IV (12:12)
== END 2023-05-23 14:00 | disposition home or self-care (01) ==
PROVIDERS: PCP Physician Assistant; Visit Provider Internal Medicine
DX: I25.118 Atherosclerotic heart disease of native coronary artery with other forms of angina pectoris (principal); I42.9 Cardiomyopathy, unspecified; Z95.1 Presence of aortocoronary bypass graft; I10 Essential (primary) hypertension; I48.21 Permanent atrial fibrillation; I31.39 Other pericardial effusion (noninflammatory); F17.210 Nicotine dependence, cigarettes, uncomplicated; J44.9 Chronic obstructive pulmonary disease, unspecified; G47.33 Obstructive sleep apnea (adult) (pediatric); Z99.81 Dependence on supplemental oxygen; R06.02 Shortness of breath; Z79.899 Other long term (current) drug therapy
CPT/HCPCS: 36225; 80048; 85025; 85610; 93458; 99152; C1725; C1760; C1769; J1644; Q9967

== ENCOUNTER 2023-06-02 08:42 | Day surgery (SDC) | payer MEDICARE, OTHER, SELFPAY ==
[2023-06-02] VITALS (13 sets, daily range): BP systolic 110–163; BP diastolic 56–80; PULSE 48–66; RESP 16–18; TEMP 36.6; O2SAT 90–99; BMI 36.6
--- NOTE | 2023-06-02 07:03 | IR_ITS ---
APPROVED REPORT Patient Location: Outpatient [place] Clown: JOSE G Mcpherson RT (R) PROCEDURES Drug-eluting stent deployment to the ostial LAD extending back into the left main artery Drug-eluting stent deployment to the ostial dominant circumflex artery extending back into the left main artery Intravascular ultrasound to the left main artery and circumflex artery INDICATION Coronary artery disease, IVUS guidance for complex percutaneous intervention, Patient was not deemed a surgical candidate for bypass surgery Informed consent was obtained prior to the procedure. COMPLICATIONS NONE Estimated Blood Loss: LESS THAN 10 ML TECHNIQUE One percent lidocaine was used to anesthetize the right groin. The right femoral artery was accessed via the Seldinger technique. A 6 Divehi sheath was placed in the right femoral artery and therapeutic heparin was administered giving a therapeutic ACT. A JL 4 guide catheter was placed in left main artery followed by Choice PT to support wire being placed on the LAD. A 4 mm x 12 mm [place] frontier stent was deployed at 14 [place] in the proximal LAD extending back into the ostial left main artery. Following this an additional wire was advanced into the left main artery and placed into the circumflex artery. A 3 mm x 12 mm compliant balloon was deployed at 12 ashleigh to open the struts going into the circumflex artery. A 4.5 x 12 mm [place] frontier stent was then deployed in the left main artery extending to the proximal circumflex artery at 14 ashleigh. The balloon was brought back into the left main artery deployed at 20 ashleigh. Wire was placed back into the LAD stent and a 3 mm x 12 mm compliant balloon was then deployed in the left main artery going back into the LAD. Following this a 4 mm x 12 mm compliant balloon was deployed in the proximal LAD extending back and left main artery at 20 ashleigh. This was repeated in the circumflex artery. Following this intravascular ultrasound probe was advanced over the wire into the circumflex artery which demonstrated excellent stent apposition in the left main artery with excellent angiographic results and significant reduction with minimal jailing of the circumflex artery. The MLA exceeded 7 mm??? in the circumflex artery. After achieving excellent angiographic results the apparatus was removed the groin is reprepped closure change sheath was removed and hemostasis was achieved using Angio-Seal device after Perclose failed to capture the artery due to calcification. Patient transferred to the postop putting in stable condition IMPRESSION Successful stenting of the ostial LAD extending back into the left main artery severe disease reduced to 0% with 1 drug-eluting stent Successful stenting of the ostial dominant circumflex artery extending back in the left main artery jailed artery reduced to 0% with 1 drug-eluting stent Successful intravascular ultrasound of the left main artery and circumflex artery PLAN 1. Aspirin 81 mg today Plavix 75 mg a day plus Coumadin for 30 days. At the end of 30 days aspirin will be discontinued and Coumadin and Plavix will be continued 2. Consideration should be given to place pacemaker given patient's episodes of bradycardia 3. Consider Holter monitor 4. Cardiac rehabilitation 5. Avoidance of tobacco products 6. Risk factor modification Electronically signed by : Otf Tomlin MD 06/02/2023 13:25:41
[2023-06-02 09:54] LABS: Basophils # 0.1 K/mm3 (0-0.2); Basophils % 1.2 % (0.1-2.0); Eosinophils # 0.3 K/mm3 (0.0-0.4); Eosinophils % 3.5 % (0.1-12.0); Hematocrit 44.5 % (42.0-52.0); Hemoglobin 13.7 g/dL (14.1-18.0); Lymphocytes # 2.1 K/mm3 (0.7-4.5); Lymphocytes % 22.1 % (10-50); Mean Corpuscular HGB Conc 30.8 g/dL (31.8-35.4); Mean Corpuscular Hemoglobin 28.9 pg (27.0-31.2); Mean Corpuscular Volume 93.8 fl (80-94); Monocytes # 0.7 K/mm3 (0.1-1.0); Monocytes % 7.1 % (1.7-9.3); Neutrophils # 6.4 K/mm3 (1.8-7.8); Neutrophils % 66.1 % (37.0-80.0); Platelet Count 307 K/mm3 (142-424); Red Blood Count 4.74 M/mm3 (4.60-6.20); Red Cell Distribution Width 16.5 % (11.5-17.5); White Blood Count 9.6 K/mm3 (4.8-10.8)
[2023-06-02 09:59] LABS: Chloride 101 mmol/L (98-107); Potassium 4.3 mmoL/L (3.5-5.1); Sodium 140 mmol/L (136-145)
[2023-06-02 10:02] LABS: Anion Gap 9.3 mEq/L (5-15); Blood Urea Nitrogen 17 mg/dl (9-20); Calcium 9.2 mg/dl (8.4-10.2); Carbon Dioxide 34 mmol/L (22.0-30.0); Creatinine Clearance Estimated 111 mL/min (50-200); Estimated Glomerular Filt Rate 95 ml/min (>60); GFR (African American) 115 ML/MIN (>60); Glucose 109 mg/dl (74-100)
[2023-06-02 10:19] LABS: INR 1.48 (0.9-1.1); Prothrombin Time 15.6 seconds (10.1-12.5)
[2023-06-02] MEDS: HEPARIN 1,000 UNITS/ML 10ML VIAL (CATH LAB) 10000 UNIT IV (12:25)
[2023-06-02] MEDS: diphenhydrAMINE 50MG/ML VIAL 50 MG IV (12:25)
[2023-06-02] MEDS: 0.9 % SODIUM CHLORIDE 500 ML 25 ML IV (12:25)
[2023-06-02] MEDS: LIDOCAINE 1% 10ML MDV 20 ML IJ (12:25)
[2023-06-02] MEDS: HEPARIN 1,000 UNITS/500ML NS (CATH LAB) 3000 UNIT IV (12:25)
[2023-06-02] MEDS: MIDAZOLAM HCL 1MG/1ML 5ML VIAL 1 MG IV ×2 (12:41→13:09)
[2023-06-02] MEDS: FENTANYL 100MCG/2ML VIAL 50 MCG IV (12:42)
[2023-06-02] MEDS: FENTANYL 100MCG/2ML VIAL 25 MCG IV (13:09)
[2023-06-02] MEDS: CLOPIDOGREL 300MG TABLET 600 MG PO (13:15)
[2023-06-02] MEDS: IOPAMIDOL-370 (76%);100ML BOTTLE 150 ML IV (14:10)
[2023-06-02 14:12] LABS: CATHL Activated Clotting Time > 400 SEC (74-125)
== END 2023-06-02 17:15 | disposition home or self-care (01) ==
PROVIDERS: Visit Provider Internal Medicine
DX: I25.10 Atherosclerotic heart disease of native coronary artery without angina pectoris (principal); Z79.899 Other long term (current) drug therapy; Z79.01 Long term (current) use of anticoagulants; I42.9 Cardiomyopathy, unspecified; I48.21 Permanent atrial fibrillation; F17.210 Nicotine dependence, cigarettes, uncomplicated; I10 Essential (primary) hypertension; I71.20 Thoracic aortic aneurysm, without rupture, unspecified; I31.39 Other pericardial effusion (noninflammatory); J44.9 Chronic obstructive pulmonary disease, unspecified
CPT/HCPCS: 80048; 85025; 85347; 85610; 92928; 92978; 92979; 99152; 99153; C1725; C1760; C1769; C1876; C1894; C9600; J1644; Q9967

== ENCOUNTER → 2023-06-15 20:09 | Outpatient (CLI) | payer MEDICARE, OTHER, SELFPAY | LOC: SL 20:13 | PROVIDERS: PCP Physician Assistant; Visit Provider Specialist | DX: G47.33 Obstructive sleep apnea (adult) (pediatric) (principal) | CPT/HCPCS: 95811 ==

== ENCOUNTER 2023-07-13 12:49 | Outpatient (CLI) | payer MEDICARE, OTHER, SELFPAY | END 2023-07-13 23:59 | disposition home or self-care (01) | LOC: RT 12:49 | PROVIDERS: PCP Physician Assistant; Visit Provider Nurse Practitioner | DX: I73.9 Peripheral vascular disease, unspecified (principal); R06.09 Other forms of dyspnea; R55 Syncope and collapse | CPT/HCPCS: 93923 ==

== ENCOUNTER 2023-08-14 11:54 | Outpatient (CLI) | payer MEDICARE, OTHER, SELFPAY ==
[2023-08-14 12:12] LABS: ABG Base Excess 2.1 mmol/L (-2.4-2.3); ABG HCO3 25.9 mmhg (22.0-26.0); ABG Oxygen Saturation 94 % (90-100); ABG PCO2 37.3 mmhg (35.0-45.0); ABG PH 7.46 mmol/L (7.35-7.45); ABG PO2 68.7 mmhg (80-100); ABG TCO2 27.1 mmhg (23-27)
[2023-08-14 12:14] LABS: Allen's Test ACCEPTABLE; Oxygen RA %; Source Right Radial
== END 2023-08-14 23:59 | disposition home or self-care (01) ==
LOC: RT 11:56
PROVIDERS: Visit Provider Specialist
DX: J96.11 Chronic respiratory failure with hypoxia (principal); J44.9 Chronic obstructive pulmonary disease, unspecified; Z99.81 Dependence on supplemental oxygen
CPT/HCPCS: 82803

== ENCOUNTER 2023-08-22 09:11 | Outpatient (CLI) | payer MEDICARE, OTHER, SELFPAY ==
--- NOTE | 2023-08-22 09:12 | CT_ITS ---
FINAL REPORT CLINICAL HISTORY: claudication bilat ext COMPARISON: None FINDINGS: Thin section axial CT images of the abdomen, pelvis and lower extremities were obtained with contrast. Multiplanar reformatted images were also obtained and reviewed. ABDOMEN AND PELVIS: Moderate vascular calcifications are present throughout the abdominal aorta extending into the extremities bilaterally. There is no abdominal aortic aneurysm or dissection. The celiac axis and proximal superior mesenteric artery are unremarkable. There are calcifications bilaterally involving the renal artery origins, on the right side mild less than 50% renal artery stenosis. The inferior mesenteric artery is patent. The iliac arteries are patent, without evidence of significant stenosis. Both the external and internal iliac arteries are patent as well. RIGHT LOWER EXTREMITY: There is high-grade stenosis versus focal occlusion of the right common femoral artery, as well as multifocal mild stenoses in the right superficial femoral artery. There is moderate stenosis present in the popliteal artery. The right deep femoral artery is patent. There is calcification in the lower leg vessels which somewhat limits overall evaluation. Anterior tibial artery occlusion is present just below the origin, with two-vessel runoff of the peroneal and posterior tibial arteries. LEFT LOWER EXTREMITY: There are multifocal stenoses of the superficial femoral artery and popliteal artery. Calcification of the lower leg vessels somewhat limits overall evaluation. The left deep femoral artery is patent. The left popliteal artery is patent. There is occlusion of the proximal anterior tibial artery. OTHER FINDINGS: There is mild contrast-enhancement in the medial segment of the left hepatic lobe, of uncertain etiology, however a small mass is not excluded. Small gallstones may be present in the gallbladder. IMPRESSION: Less than 50% stenosis of the right renal artery. There is high-grade stenosis versus focal occlusion of the right common femoral artery, as well as multifocal mild stenoses in the left superficial femoral artery. The anterior tibial artery on the right side is occluded just below its origin. Multifocal stenoses of the superficial femoral and popliteal arteries on the left. There is occlusion of the left anterior tibial artery below its origin. If indicated to visualize the proximal anterior tibial arteries bilaterally catheter angiography might be helpful. Mild contrast-enhancement medial segment of the left hepatic lobe of uncertain etiology. Recommend liver MRI for further evaluation. Questionable small gallstones, recommend ultrasound as clinically indicated for further evaluation. Reviewed, Interpreted and Dictated by Shawn Dickens III, MD Transcribed by Padmini Purcell Authenticated and [facility]
[2023-08-22 09:43] LABS: Blood Urea Nitrogen 16 mg/dl (9-20); Estimated Glomerular Filt Rate 95 ml/min (>60); GFR (African American) 115 ML/MIN (>60)
[2023-08-22] MEDS: 0.9 % SODIUM CHLORIDE 50 ML VIAL 100 ML IV (10:38)
[2023-08-22] MEDS: IOPAMIDOL-370 (76%);100ML BOTTLE 120 ML IV (10:38)
[2023-08-22] MEDS: SODIUM CHLORIDE 0.9% 10ML SYR (RAD ONLY) 10 ML IV (10:38)
== END 2023-08-22 23:59 | disposition home or self-care (01) ==
LOC: RAD 09:12
PROVIDERS: PCP Physician Assistant; Visit Provider Physician Assistant
DX: I73.9 Peripheral vascular disease, unspecified (principal)
CPT/HCPCS: 36415; 73706; 82565; 84520; Q9967

== ENCOUNTER 2023-09-22 07:43 | Outpatient (CLI) | payer MEDICARE, OTHER, SELFPAY ==
[2023-09-22 08:15] LABS: Blood Urea Nitrogen 19 mg/dl (9-20); Estimated Glomerular Filt Rate 82 ml/min (>60); GFR (African American) 100 ML/MIN (>60)
--- NOTE | 2023-09-22 08:15 | MR_ITS ---
FINAL REPORT CLINICAL HISTORY: Abnormal liver on ct scan COMPARISON: 08/22/2023 FINDINGS: Multiplanar MR imaging of the abdomen was performed without and with contrast. There is a 3.3 x 3.4 cm mass in the anterior segment of the right hepatic lobe medially. This shows diffuse enhancement on the postcontrast images with contrast washout on the more delayed images. Findings are most worrisome for neoplasm, may represent primary liver neoplasm such as hepatocellular carcinoma. There is no evidence of biliary ductal dilatation. The gallbladder has an unremarkable appearance. No other mass or adenopathy is identified. No abnormal fluid collection is seen. IMPRESSION: Mass in the right hepatic lobe worrisome for neoplasm as detailed above. Reviewed, Interpreted and Dictated by Shawn Dickens III, MD Transcribed by Radha Glover Authenticated and [facility]
[2023-09-22] MEDS: SODIUM CHLORIDE 0.9% 10ML SYR (RAD ONLY) 10 ML IV (09:26)
[2023-09-22] MEDS: 0.9 % SODIUM CHLORIDE 50 ML VIAL 25 ML IV (09:26)
[2023-09-22] MEDS: GADOTERIDOL INJ 20ML SYRINGE 20 ML IV (09:26)
[2023-09-22] MEDS: GADOTERIDOL INJ 10ML SYRINGE 4 ML IV (09:26)
== END 2023-09-22 23:59 | disposition home or self-care (01) ==
LOC: RAD 07:43
PROVIDERS: PCP Physician Assistant; Visit Provider Nurse Practitioner
DX: R93.2 Abnormal findings on diagnostic imaging of liver and biliary tract (principal)
CPT/HCPCS: 36415; 74183; 82565; 84520; A9576

== ENCOUNTER 2023-10-13 08:44 | Outpatient (CLI) | payer MEDICARE, OTHER, SELFPAY ==
[2023-10-13] VITALS (12 sets, daily range): BP systolic 90–134; BP diastolic 51–71; PULSE 46–56; RESP 14–18; TEMP 36.2–36.5; O2SAT 46–99; BMI 36.2
--- NOTE | 2023-10-13 08:48 | CT_ITS ---
FINAL REPORT CLINICAL HISTORY: .liver mass biopsy FINDINGS: CT GUIDED LIVER BIOPSY HISTORY: Liver lesion. ATTENDING PHYSICIAN: Dr. Conteh PHYSICIAN DIESEL TRACTOR OPERATOR: Leighton Kirkland PA-C PROCEDURE: After informed consent was obtained and a timeout was performed, the patient was prepped and draped in usual sterile fashion over the right lateral abdomen. Utilizing local anesthesia and sterile technique with a coaxial system, access to lesion was obtained. 7 20-gauge core biopsy passes were made. Post biopsy films demonstrate no evidence of acute complication. The patient received mild procedural sedation. The patient tolerated the procedure well and left the department in good condition. IMPRESSION: Status post CT guided biopsy of a liver lesion without immediate complication. PROCEDURAL SEDATION: 2 mg of IV Versed and 50 mcg of Fentanyl were administered. Continuous vital sign monitoring was used. An RN was present during the sedation process. Overall sedation time was 30 minutes. Films reviewed , interpreted and dictated by Dr. Conteh. Transcribed by Leighton Kirkland PA-C. Reviewed, Interpreted and Dictated by Srinivas Conteh MD Transcribed by PANKAJ Leblanc Authenticated and [facility]
[2023-10-13 09:43] LABS: Basophils # 0.1 K/mm3 (0-0.2); Basophils % 1.1 % (0.1-2.0); Eosinophils # 0.3 K/mm3 (0.0-0.4); Eosinophils % 3.9 % (0.1-12.0); Hemoglobin 12.3 g/dL (14.1-18.0); Lymphocytes % 24.2 % (10-50); Mean Corpuscular HGB Conc 32.5 g/dL (31.8-35.4); Mean Corpuscular Hemoglobin 29.1 pg (27.0-31.2); Mean Corpuscular Volume 89.6 fl (80-94); Mean Platelet Volume 9.1 fl (7.4-10.4); Monocytes # 0.6 K/mm3 (0.1-1.0); Monocytes % 6.7 % (1.7-9.3); Neutrophils # 5.3 K/mm3 (1.8-7.8); Neutrophils % 64.1 % (37.0-80.0); Platelet Count 226 K/mm3 (142-424); Red Blood Count 4.24 M/mm3 (4.60-6.20); Red Cell Distribution Width 17.3 % (11.5-17.5); White Blood Count 8.3 K/mm3 (4.8-10.8)
[2023-10-13 09:52] LABS: Albumin Level 3.9 g/dl (3.5-5.0); Chloride 104 mmol/L (98-107); Potassium 3.8 mmoL/L (3.5-5.1); Sodium 138 mmol/L (136-145)
[2023-10-13 09:55] LABS: Alanine Aminotransferase 19 U/L (12-78); Albumin/Globulin Ratio 1.3 (1.1-1.8); Alkaline Phosphatase 93 U/L (38-126); Anion Gap 8.8 mEq/L (5-15); Aspartate Amino Transferase 24 U/L (17-59); Bilirubin,Total 1.2 mg/dl (0.2-1.3); Blood Urea Nitrogen 13 mg/dl (9-20); Carbon Dioxide 29 mmol/L (22.0-30.0); Creatinine Clearance Estimated 108 mL/min (50-200); Estimated Glomerular Filt Rate 94 ml/min (>60); GFR (African American) 114 ML/MIN (>60); Globulin 3.1 g/dL (1.3-3.2)
[2023-10-13 09:56] LABS: Calcium 8.6 mg/dl (8.4-10.2); Glucose 102 mg/dl (74-100)
[2023-10-13 09:58] LABS: Activated Partial Thrombo Time 30.6 seconds (22.8-30.6); INR 1.16 (0.9-1.1); Prothrombin Time 12.8 seconds (10.1-12.5)
[2023-10-14 12:12] LABS: AFP, Tumor Marker 1.9 ng/mL (0.0-8.4)
== END 2023-10-13 13:30 | disposition home or self-care (01) ==
PROVIDERS: PCP Physician Assistant; Visit Provider Internal Medicine Medical Oncology
DX: R16.0 Hepatomegaly, not elsewhere classified (principal); R93.2 Abnormal findings on diagnostic imaging of liver and biliary tract; Z79.01 Long term (current) use of anticoagulants; K76.9 Liver disease, unspecified; Z79.899 Other long term (current) drug therapy
CPT/HCPCS: 47000; 77012; 80053; 82105; 85025; 85610; 85730; 88307; J2250; J3010

== ENCOUNTER 2023-10-31 11:50 | Outpatient (CLI) | payer MEDICARE, OTHER, SELFPAY ==
[2023-11-01 14:09] LABS: CA 19-9 <2 U/mL (0-35); CEA 4.6 ng/mL (0.0-4.7)
== END 2023-10-31 23:59 | disposition home or self-care (01) ==
LOC: RAD 11:55 → LAB 11:58
PROVIDERS: PCP Physician Assistant; Visit Provider Internal Medicine Medical Oncology
DX: R16.0 Hepatomegaly, not elsewhere classified (principal)
CPT/HCPCS: 82378; 86301

== ENCOUNTER 2023-11-08 07:40 | Day surgery (SDC) | payer MEDICARE, OTHER, SELFPAY ==
[2023-11-08] VITALS (12 sets, daily range): BP systolic 119–159; BP diastolic 55–87; PULSE 40–62; RESP 16–18; TEMP 36.9; O2SAT 91–100; BMI 35.4
--- NOTE | 2023-11-08 07:03 | IR_ITS ---
APPROVED REPORT Patient Location: Outpatient PROCEDURES Left femoral arterial access Catheter placed in the abdominal aorta Abdominal aortography Repositioning the catheter in the abdominal aorta Bilateral iliofemoral runoff Intravascular lithotripsy to the right common femoral artery Drug-coated balloon angioplasty to the right common femoral artery INDICATION Elis claudication class III, Peripheral artery disease, Calcification of the right common femoral artery in a patient who is not an appropriate surgical candidate Informed consent was obtained prior to the procedure. COMPLICATIONS NONE Estimated Blood Loss: LESS THAN 10 ML TECHNIQUE 1% lidocaine used anesthetize left groin the left femoral artery was accessed via the center technique and a 5 Indonesian sheath is placed in the femoral artery. A pigtail catheter was advanced and abdominal aortography was performed followed by repositioning in the abdominal aorta with a catheter. Bilateral iliofemoral runoff was then performed. Following this therapeutic Was administered and the 5 Indonesian sheath was exchanged for a 6 Indonesian sheath. A rim catheter was used to cannulate the right common iliac artery and an advantage wire was placed under fluoroscopic guidance into the superficial femoral artery. The 6 Indonesian sheath was exchanged for a destination sheath. A 300 cm Choice PT extra-support wire was exchanged after trailblazer catheter was advanced into the right superficial femoral artery. Following this a 7 mm x 80 mm intravascular shockwave balloon was deployed at 4 and then 6 ashleigh and 300 pulsations were delivered. Following this a 7 mm x 40 mm balloon was deployed at 12 ashleigh for 3 minutes. Excellent angiograph results were obtained. At the end the procedure the apparatus was removed the groin is reprepped closure change sheath was removed and hemostasis was achieved using Angio-Seal device patient was transferred to the postop putting in stable condition ANGIOGRAPHIC RESULTS Bilateral renal arteries are singular and widely patent Infrarenal abdominal aorta is mildly atheromatous with 10 to 20% stenoses. The bilateral common iliac arteries are widely patent bilateral internal iliac arteries are widely patent bilateral external iliac arteries are widely patent Right common femoral artery has a calcification creating at least 80% stenosis. It then gives rise to a moderately diseased small profunda femoris artery followed by widely patent SFA with diffuse 30% stenoses. The popliteal artery has a proximal 40 to 50% stenosis and then is widely patent and gives rise to a anterior tibialis artery which is proximally acute occluded and then reconstitutes distally. The peroneal artery and right posterior tibialis artery are proximally patent and the right posterior tibialis artery becomes occluded. The peroneal artery provides inline flow to the right foot Left common femoral artery is widely patent as is the left profunda femoris artery and a diffusely 30% diseased left superficial femoral artery. Left popliteal artery has calcifications with a 50% stenosis in Kamlesh's canal followed by a concentric 80% stenosis followed by an additional 70% stenosis with 40 and 50% stenosis in the popliteal artery. The left anterior tibialis artery is subtotally occluded in the proximal segment of the peroneal artery and the left posterior tibialis artery are patent into the left foot IMPRESSION Peripheral artery disease as described above Severe disease in the right common femoral artery with successful intravascular lithotripsy followed by drug-coated balloon angioplasty to the right common femoral artery reducing the stenosis to less than 10% Two-vessel runoff below the knee as described above Severe left SFA popliteal disease as described PLAN 1. Reasonable to perform dual antiplatelet therapy at this time while considering Xarelto 2.5 twice daily plus aspirin 81 mg daily 2. LDL less than 55 achieved with high intensity statin 3. Consideration to perform left intravascular lithotripsy and DCB angioplasty of the superficial femoral artery and popliteal artery Electronically signed by : Otf Tomlin MD 11/09/2023 14:30:13
[2023-11-08 08:15] LABS: Basophils # 0.1 K/mm3 (0-0.2); Eosinophils # 0.3 K/mm3 (0.0-0.4); Eosinophils % 3.1 % (0.1-12.0); Hematocrit 42.5 % (42.0-52.0); Hemoglobin 13.3 g/dL (14.1-18.0); Lymphocytes # 2.2 K/mm3 (0.7-4.5); Lymphocytes % 24.8 % (10-50); Mean Corpuscular HGB Conc 31.3 g/dL (31.8-35.4); Mean Corpuscular Hemoglobin 28.6 pg (27.0-31.2); Mean Corpuscular Volume 91.5 fl (80-94); Mean Platelet Volume 8.7 fl (7.4-10.4); Monocytes # 0.6 K/mm3 (0.1-1.0); Monocytes % 6.6 % (1.7-9.3); Neutrophils # 5.7 K/mm3 (1.8-7.8); Neutrophils % 64.4 % (37.0-80.0); Platelet Count 249 K/mm3 (142-424); Red Blood Count 4.64 M/mm3 (4.60-6.20); Red Cell Distribution Width 17.3 % (11.5-17.5); White Blood Count 8.8 K/mm3 (4.8-10.8)
[2023-11-08 08:27] LABS: Chloride 103 mmol/L (98-107); Sodium 141 mmol/L (136-145)
[2023-11-08 08:28] LABS: Potassium 3.8 mmoL/L (3.5-5.1)
[2023-11-08 08:29] LABS: INR 1.16 (0.9-1.1); Prothrombin Time 12.8 seconds (10.1-12.5)
[2023-11-08 08:31] LABS: Anion Gap 11.8 mEq/L (5-15); Blood Urea Nitrogen 18 mg/dl (9-20); Calcium 8.9 mg/dl (8.4-10.2); Carbon Dioxide 30 mmol/L (22.0-30.0); Creatinine Clearance Estimated 106 mL/min (50-200); Estimated Glomerular Filt Rate 94 ml/min (>60); GFR (African American) 114 ML/MIN (>60); Glucose 108 mg/dl (74-100)
[2023-11-08] MEDS: diphenhydrAMINE 50MG/ML VIAL 50 MG IV (10:41)
[2023-11-08] MEDS: HEPARIN 1,000 UNITS/500ML NS (CATH LAB) 3000 UNIT IV (10:41)
[2023-11-08] MEDS: 0.9 % SODIUM CHLORIDE 500 ML 25 ML IV (10:41)
[2023-11-08] MEDS: LIDOCAINE 1% 10ML MDV 20 ML IJ (10:41)
[2023-11-08] MEDS: MIDAZOLAM HCL 1MG/1ML 5ML VIAL 1 MG IV (11:08)
[2023-11-08] MEDS: FENTANYL 100MCG/2ML VIAL 50 MCG IV (11:08)
[2023-11-08] MEDS: HEPARIN 1,000 UNITS/ML 10ML VIAL (CATH LAB) 10000 UNIT IV (11:18)
[2023-11-08] MEDS: CLOPIDOGREL 75MG TAB 75 MG PO (11:24)
[2023-11-08] MEDS: NITROGLYCERIN 800MCG/8ML SYR (CATH LAB) 800 MCG IA (11:52)
[2023-11-08] MEDS: IOPAMIDOL-250 (51%) 100ML BOT 230 ML IV (12:24)
[2023-11-08 12:26] LABS: CATHL Activated Clotting Time 277 SEC (74-125)
== END 2023-11-08 15:01 | disposition home or self-care (01) ==
PROVIDERS: PCP Physician Assistant; Visit Provider Internal Medicine
DX: I70.212 Atherosclerosis of native arteries of extremities with intermittent claudication, left leg (principal); Z79.899 Other long term (current) drug therapy; F17.210 Nicotine dependence, cigarettes, uncomplicated; Z79.01 Long term (current) use of anticoagulants; I77.1 Stricture of artery
CPT/HCPCS: 80048; 85025; 85347; 85610; 99152; 99153; C1725; C1760; C1766; C1769; C1894; C9764; J1200; J1644; J2250; J3010; Q9966

== ENCOUNTER 2024-01-22 08:44 | Outpatient (CLI) | payer MEDICARE, OTHER, SELFPAY ==
--- NOTE | 2024-01-22 08:46 | CT_ITS ---
FINAL REPORT CLINICAL HISTORY: ATTN: LIVER COMPARISON: 09/22/2023 MRI of the abdomen FINDINGS: CT OF THE ABDOMEN AND PELVIS WITH CONTRAST Axial CT images of the abdomen and pelvis were obtained after the administration of IV contrast. Coronal and sagittal reformatted images were also obtained and reviewed. This study was performed with techniques to keep radiation doses as low as reasonably achievable (ALARA). Individualized dose reduction techniques using automated exposure control or adjustment of mA and/or kV according to the patient's size were employed. Abdomen: The lung bases are clear. A small pericardial effusion is present, stable, along with cardiomegaly. Again noted is a contrast-enhancing mass in the right hepatic lobe, 3.4 x 3.4 cm in size, in the medial segment of the left lobe. This mass does not have an appearance consistent with a hemangioma or cyst. No new masses are noted in the liver. There are small densities in the gallbladder, gallstones or sludge. The spleen is unremarkable. No adrenal mass is present. The pancreas has an unremarkable appearance. The kidneys are normal, without evidence of mass or hydronephrosis. Moderate vascular calcifications are present. There is no free fluid or adenopathy. No mass or abnormal fluid collection is seen. Pelvis: The appendix normal in appearance. The urinary bladder is unremarkable. No inflammatory process is seen. There is no evidence of mass or adenopathy. There is no evidence of bowel obstruction. There are small inguinal hernias containing fat. IMPRESSION: Contrast-enhancing mass in the right hepatic lobe as described above, also seen on the prior MRI of 09/22/2023. This does not appear to represent a hemangioma or cyst. Continued follow-up is suggested. Reviewed, Interpreted and Dictated by Shawn Dickens III, MD Transcribed by Padmini Purcell Authenticated and [facility]
[2024-01-22 09:14] LABS: Blood Urea Nitrogen 12 mg/dl (9-20); Estimated Glomerular Filt Rate 94 ml/min (>60); GFR (African American) 114 ML/MIN (>60)
[2024-01-22] MEDS: SODIUM CHLORIDE 0.9% 10ML SYR (RAD ONLY) 10 ML IV (09:56)
[2024-01-22] MEDS: IOPAMIDOL-370 (76%);100ML BOTTLE 75 ML IV (09:56)
[2024-01-22] MEDS: BARIUM SULFATE(READI-CAT2);450ML BOTTLE 450 ML PO (09:56)
== END 2024-01-22 23:59 | disposition home or self-care (01) ==
LOC: RAD 08:46
PROVIDERS: PCP Physician Assistant; Visit Provider Internal Medicine Medical Oncology
DX: R16.0 Hepatomegaly, not elsewhere classified (principal)
CPT/HCPCS: 36415; 74178; 82565; 84520; Q9967

== ENCOUNTER 2024-04-24 13:11 | Outpatient (CLI) | payer MEDICARE, OTHER, SELFPAY ==
[2024-04-24 13:55] LABS: Blood Urea Nitrogen 16 mg/dl (9-20); Estimated Glomerular Filt Rate 110 ml/min (>60); GFR (African American) 133 ML/MIN (>60)
[2024-04-24 14:47] LABS: Thyroid Stimulating Hormone 6.03 uIU/mL (0.465-4.68)
[2024-04-24 18:50] LABS: Free T4 (Free Thyroxine) 1.34 ng/dl (0.78-2.19)
== END 2024-04-24 23:59 | disposition home or self-care (01) ==
PROVIDERS: Internal Medicine Medical Oncology; Visit Provider Otolaryngology
DX: R16.0 Hepatomegaly, not elsewhere classified (principal); E03.9 Hypothyroidism, unspecified
CPT/HCPCS: 36415; 82565; 84439; 84443; 84520

== ENCOUNTER 2024-04-25 07:45 | Outpatient (CLI) | payer MEDICARE, OTHER, SELFPAY ==
--- NOTE | 2024-04-25 07:47 | CT_ITS ---
FINAL REPORT TECHNIQUE: Axial CT images of the abdomen were obtained with IV contrast only. Coronal reformatted images were also obtained. This study was performed with techniques to keep radiation doses as low as reasonably achievable (ALARA). Individualized dose reduction techniques using automated exposure control or adjustment of mA and/or kV according to the patient''s size were employed. CLINICAL HISTORY: efficacy, 3 month follow up. single right sided liver mass on CT on 01/22/24 and in August 2023 COMPARISON: 01/22/2024 FINDINGS: The lung bases are clear. There is a faint enhancing mass in the central liver near the remington hepatis at the right-left lobe junction on image 47 measuring 41 x 32 mm. This mass previously measured 40 x 36 mm when measured on the portal phase imaging. It has a remarkably nonspecific appearance and is stable in size. There is a small enhancing lesion in the lateral segment of the left hepatic lobe measuring 11 mm which is unchanged from the previous exam. The liver is fatty infiltrated. The remaining solid organs are unremarkable. Cholelithiasis is noted. Bowel is unremarkable. The appendix is normal. There is mild prostate enlargement. The urinary bladder is unremarkable. IMPRESSION: Stable nonspecific enhancing liver lesions. Recommend 6-month continued follow-up. Cholelithiasis. Reviewed, Interpreted and Dictated by Kenia Castro MD Transcribed by Cathryn Pina Authenticated and . [facility]
[2024-04-25] MEDS: IOPAMIDOL-370 (76%);100ML BOTTLE 75 ML IV (08:33)
== END 2024-04-25 23:59 | disposition home or self-care (01) ==
LOC: RAD 07:47
PROVIDERS: PCP Physician Assistant; Visit Provider Internal Medicine Medical Oncology
DX: R16.0 Hepatomegaly, not elsewhere classified (principal)
CPT/HCPCS: 74160; Q9967

== ENCOUNTER 2024-04-30 09:53 | Outpatient (CLI) | payer MEDICARE, OTHER, SELFPAY ==
[2024-04-30] MEDS: IPRATROPIUM/ALBUTEROL 3 ML NEB IH (10:47)
== END 2024-04-30 23:59 | disposition home or self-care (01) ==
LOC: RT 09:55
PROVIDERS: PCP Physician Assistant; Visit Provider Internal Medicine Pulmonary Disease
DX: R06.09 Other forms of dyspnea (principal)
CPT/HCPCS: 94060; 94618; 94726; 94729; J7620

== ENCOUNTER 2024-07-19 12:01 | Outpatient (CLI) | payer MEDICARE, OTHER, SELFPAY ==
[2024-07-19 12:35] LABS: Blood Urea Nitrogen 11 mg/dl (9-20); Estimated Glomerular Filt Rate 94 ml/min (>60); GFR (African American) 114 ML/MIN (>60)
== END 2024-07-19 23:59 | disposition home or self-care (01) ==
LOC: LAB 12:05
PROVIDERS: PCP Physician Assistant; Visit Provider Internal Medicine Medical Oncology
DX: Z79.01 Long term (current) use of anticoagulants (principal); I48.91 Unspecified atrial fibrillation; R16.0 Hepatomegaly, not elsewhere classified
CPT/HCPCS: 36415; 82565; 84520

== ENCOUNTER 2024-07-22 07:47 | Outpatient (CLI) | payer MEDICARE, OTHER, SELFPAY ==
[2024-07-22] MEDS: IOPAMIDOL-370 (76%);100ML BOTTLE 75 ML IV (08:00)
[2024-07-22] MEDS: SODIUM CHLORIDE 0.9% 10ML SYR (RAD ONLY) 10 ML IV (08:00)
--- NOTE | 2024-07-22 08:00 | CT_ITS ---
FINAL REPORT TECHNIQUE: After the administration of intravenous contrast, axial CT images were performed from the lung bases through the iliac crests. Coronal and sagittal reformats were submitted. This study was performed with techniques to keep radiation doses as low as reasonably achievable (ALARA). Individualized dose reduction techniques using automated exposure control or adjustment of mA and/or kV according to the patient's size were employed. CLINICAL HISTORY: f/u liver mass COMPARISON: 04/25/2024, 01/22/2024, and 09/22/2016 FINDINGS: There is minimal scarring at the left lung base. There are enhancing lesions in both lobes of the liver. The largest focus is in the right lobe of the liver adjacent to the remington hepatis measuring 3.8 cm in greatest dimension, image 41 of series 2. There are smaller areas in the lateral segment of the left lobe of the liver. These are less evident than on the previous exam. On the delayed imaging, this focus appears to be low-attenuation relative to the surrounding parenchyma. The low attention central area measures 2.0 cm. These findings are essentially stable as compared to the exam from 01/22/2024. The dominant liver lesion appears to be new as compared to an exam from 09/22/2016. The gallbladder is pleasant. Small gallstones are seen in the dependent portion of the gallbladder. The spleen is unremarkable. The adrenals are normal. The pancreas is unremarkable. The kidneys enhance appropriately. The appendix is unremarkable. The aorta is normal in caliber. There is no free fluid or adenopathy. IMPRESSION: Stable enhancing lesions of the liver of uncertain significance. Recommend 6-month follow-up. Gallstones in the gallbladder. Reviewed, Interpreted and Dictated by Srinivas Conteh MD Transcribed by Feli Morris Authenticated and [facility]
== END 2024-07-22 23:59 | disposition home or self-care (01) ==
LOC: RAD 07:48
PROVIDERS: PCP Physician Assistant; Visit Provider Internal Medicine Medical Oncology
DX: K76.9 Liver disease, unspecified (principal); K80.20 Calculus of gallbladder without cholecystitis without obstruction
CPT/HCPCS: 74160; Q9967

== ENCOUNTER 2024-08-16 14:46 | Outpatient (CLI) | payer MEDICARE, OTHER, SELFPAY ==
--- OUTSIDE RECORDS SUMMARY | 2024-08-16 14:49 | XMS_ITS | Data Portability ---
Author Organization [facility] ADMIN Address [address] [place] [id number] Assessment No assessment recorded. Plan of Treatment Reminders Order Date Submit Date Provider Last Modified By Organization Details Last Modified Time Details Appointments None recorded. Lab None recorded. Referral None recorded. Procedures None recorded. Surgeries None recorded. Imaging LDCT, chest, for lung cancer screening - 1- Did patient participat e in a shared decision-m aking session with the provider? YES2- Is patient age between 50-77 years old? YES3- Did patient smoke at least 20 pack year? YES4- Is patient current smoker or quit smoking within the last 15 years? YES5- Is the patient asymptomat ic (no signs or symptoms of lung cancer)? YES 2022 024 [facility] (Centralized Scheduling), [address] [place] [address], [id number], 4 03:13:38 Medication Orders Trelegy Ellipta 100 mcg-62.5 mcg-25 mcg powder for inhalation 2022 023 [facility], [address] [place] [address], [id number], 3 14:15:55 albuterol sulfate HFA 90 mcg/actuat ion aerosol inhaler 2022 023 [facility], [address] [place] [address], [id number], 3 14:15:58 Patient TargetsNo targets recorded. Patient Instructions Encounter Date Encounter Id Patient Instructions Last Modified By Organization Details Last Modified Time 01/17/2023 [id number] smoking cessatio n counseling, greater than 3 minutes up to 10 minutes* [email or web address] Not available 01/17/2023 14:14:50 Reason for Referral None Reported. Results Created Date Observation Date Name Description Value Unit Range Abnormal Flag Note LastModifiedBy Organization Detail LastModifiedTime 01/13/20 23 01/12/2023 XR, chest , 2 view [facility] [address] [place] [address] Phone: Fax: Name: CLARISA Malik ISIS Benz Exam Date: : 950 Age 72 Gender : M Access ion: [id number] Physic fifi: FRANCESCA MUSTAFA Facili ty: [facility] Facili ty HSV: Outpat ient Exam: CHEST 2 VIEWS CHEST, 2 views HISTOR Y: Shortn ess of breath . COMPAR TOVA: Februa ry 2018. FINDIN GS: Heart is enlarg ed. There is slight promin ence of the pulmon marcela vascul ature, correl ate with patien t's cardio pulmon marcela status . There is no focal consol idatio n. No signif icant pleura l effusi on. No acute osseou s change s. IMPRES ASMITA: Heart is enlarg ed. There is slight promin ence of the pulmon marcela vascul ature, correl ate with patien t's cardio pulmon marcela status . Contin ued follow up recomm ended. Dictat ed By: HORTENCIA MCDONALD Transc ribed By: Hortencia Mcdonald Transc ribed On: 023 4:49 PM Electr onical ly signed by: HORTENCIA MCDONALD Thank you for referr ing CLARISA KingISIS to [facility]. Legall y authen ticate d by POPE HORTENCIA Velazquez 2022-03 16:49: 26 CC'ed Logic: Orderi ng Provid er: MOON ELLISON Attend ing Provid er: MOON ELLISON Admitt ing Provid er: KOKASSANDRA polanco [facility] [address], [place], [address], 01/13/2023 09:46:37 Result Notes None recorded. Problems Name Problem SNOMED Code Status Onset Date Resolution Date Notes Provider Name and Address Organization Details Recorded Time Chronic bronchitis 73608454 Active 2022 Francesca Mustafa MD [address], [place], [address] , [facility] & [place] 3 14:09:45 Dyspnea on exertion 92624097 Active 2022 Francesca Mustafa MD [address], [place], [address] , [facility] & [place] 3 14:09:55 Tobacco dependence caused by cigarettes 5833600344076 9107 Active 2022 Francesca Mustafa MD [address], [place], [address] , [facility] & [place] 3 14:10:05 Problem Notes None recorded. Medical Equipment None Reported. Allergies No known drug allergies Medications Name Sig Start Date Stop Date Status Note LastModified by Organization Details LastModified Time furosemide 40 mg tablet active Not Available Not Available Not Available prednisone 10 mg tablet active Not Available Not Available Not Available doxycycline hyclate 100 mg capsule active Not Available Not Available N ot Available torsemide 20 mg tablet active Not Available Not Available No t Available albuterol sulfate 2.5 mg/3 mL (0.083 %) solution for nebulization active Not Available Not Available Not Available trazodone 50 mg tablet active Not Available Not Available No t Available Mandi 128 5 % eye ointment active Not Available Not Available Not Available ibuprofen 800 mg tablet active Not Available Not Available Not Available hydrocodone 5 mg-acetamino phen 325 mg tablet TAKE ONE TABLET BY MOUTH EVERY 8 HOURS NEEDED FOR PAIN MAY CAUSE DROWSINESS active Not Available Not Available N ot Available valacyclovir 500 mg tablet active Not Available Not Available Not Available warfarin 4 mg tablet active Not Available Not Available No t Available potassium chloride ER 20 mEq tablet,exten ded release(part /cryst) active Not Available Not Available Not Available methocarbamo l 750 mg tablet TAKE ONE TABLET BY MOUTH EVERY 6 HOURS NEEDED FOR muscle SPASMS MAY CAUSE DROWSINESS active Not Available Not Available N ot Available torsemide 100 mg tablet active Not Available Not Available Not Available furosemide 80 mg tablet active Not Available Not Available Not Available hydrocodone 7.5 mg-acetamino phen 325 mg tablet active Not Available Not Available Not Available ropinirole 2 mg tablet active Not Available Not Available No t Available cephalexin 500 mg capsule active Not Available Not Available Not Available erythromycin 5 mg/gram (0.5 %) eye ointment active Not Available Not Available Not Available levothyroxin e 125 mcg tablet active Not Available Not Available Not Available fluoromethol one 0.1 % eye drops,suspen asmita active Not Available Not Available Not Available gabapentin 300 mg capsule active Not Available Not Available Not Available digoxin 125 mcg (0.125 mg) tablet active Not Available Not Available N ot Available methylpredni solone 4 mg tablets in a dose pack TAKE BY MOUTH DIRECTED ON INSIDE OF PACKAGE active Not Available Not Available No t Available albuterol sulfate HFA 90 mcg/actuatio n aerosol inhaler Inhale 2 puffs every 4 hours by inhalation route for 30 days. active Not Available Not Available No t Available losartan 100 mg tablet active Not Available Not Available No t Available cyclobenzapr ine 5 mg tablet active Not Available Not Available Not Available moxifloxacin 0.5 % eye drops active Not Available Not Available Not Available Jardiance 10 mg tablet active Not Available Not Available No t Available Trelegy Ellipta 100 mcg-62.5 mcg-25 mcg powder for inhalation Inhale 1 puff every day by inhalation route for 30 days. 2022 active Not Available Not Available Not Avai lable Vitals Date Recorded Body height Body mass index (BMI) Body weight Body temperature Oxygen saturation Oxygen saturation in Arterial blood by Pulse oximetry Heart rate Systolic blood pressure Diastolic blood pressure Provider Name and Address Organization Details Last Updated DateTime 3 180.34 cm 39.1 kg/m2 982478. 86 g 97.7 [degF] 94 % 94 % 74 /min 145 mm[Hg] 66 mm[Hg] Lawrence purvis [place] - [facility] - [place] & [place] 3 11:48:19 Social History Question Answer Notes LastModified by Organizat ion Details LastModified Time Tobacco Smoking Status Current Every Day Smoker Lawrence [facility] [place] - [facility] - [place] & [place] 01/17/2023 11:50:02 What Is Your Level Of Caffeine Consumption? Moderate [id number] Information not available 01/17/2023 What Is Your Current Pack Years? 30ormorepackye ars [id number] Information not available 01/17/2023 At What Age Did You Start Smoking Tobacco? 10 [id number] Information not available 01/17/2023 How Much Tobacco Do You Smoke? 1 PPD [id number] Information not available 01/17/2023 Sex: Unknown Functional Status Question Answer Note LastModified by Organizat ion Details LastModified Time What is your level of alcohol consumption? Occasional [id number] Information not available 01/17/2023 Mental Status None recorded. Family History Nothing Reported. Medical History No medical history recorded. Past Encounters Encounter ID Performer Location Encounter Start Date Encounter Closed Date Diagnosis/Indication Diagnosis SNOMED-CT Code Diagnosis ICD10 Code Diagnosis Note [id number] Francesca Mustafa MD [facility] [address] [facility] [place] [address] 01/17/2023 11:36:07 01/17/2023 12:06:30 Chronic bronchitis 95158599 J42 Chest x-ray done recently showing some congestion without other acute finding.Sp irometry done in the office today showed evidence of obstructio n with decrease in FEV1 down to 45% predicted. Will check alpha-1 trypsin genotype by buccal mucosal swab in the office today.Will start patient on a controller inhaler using Trelegy.Suresh llamas instructed to call if there is any new symptoms. Dyspnea on exertion 6084 5006 R06.09 Patient recommende d to exercise as tolerated and will arrange for him to have MDI Rosalba to use on a p.r.n. basis. Tobacco de pendence caused by cigarettes [id number] 7679037 F17.210 Patient counseled extensivel y to quit smoking and will continue follow this up.At the present time patient is not interested in quitting smoking or receiving nicotine supplement to help him in this process.Suresh llamas given informatio n regarding smoking cessation classes.Wi ll continue with annual low-dose CT of the chest for early lung cancer detection. Screening for malignant neoplasm of respiratory tract 680003650 Z12.2 The patient has participat ed in a shared decision making session during which potential risk and benefits of LDCT lung cancer screening were discussed. The patient was informed of the importance of adherence to annual screening, impact of comorbidit ies, the ability/wi llingness to undergo diagnosis and treatment. The patient was informed of the importance of smoking cessation and/or maintainin g smoking abstinence , including the offer of Medicare-c over tobacco cessation counseling services, if applicable .The patient is asymptomat ic (no symptoms such as fever, chest pain, new shortness of breath, new or changing cough, coughing up blood, or unexplaine d significan t weight loss). Immunization advised 310 656353 Z71.9 Patient is up-to-date on his flu vaccine for this season.Criselda pablo recommende d to receive COVID-19 vaccinatio n from his pharmacy.Tuyet navarro recommende d to receive RSV vaccine and will send an order to his pharmacy. Health Concerns Section Related Observation LastModified by Organization Detai ls LastModified Time None Recorded Concern Status LastModified by Organization Details LastModified Time None Recorded Advance Directives Directive None Recorded Payers Insurance Date Sequence Insurance Name Policy Number Policy Wang Covered Member ID Wang Member ID Guarantor Name 04/18/2023 1 [place]ARE[place]ICARE[place] Nathan Brewerde [id number] 01/17/2023 2 Well Done (MEDICARE SUPPLEMENT) PLAN G Nathan Reid [id number] Notes Date Note Type Note Provider Name and Address Organization Details Recorded Time 01/17/2023 text/html Patient presents to the office today for initial evaluation. Patient states that he had worsening shortness breath over the last few years and no inhaler helped him so he is using albuterol as needed. Patient had history of smoking of more than 1 pack per day for 60 years and continue to do so. Report shortness of breath at rest and dyspnea exertion grade 3 on M MRC dyspnea scale. He denies fever, chills or diaphoresis. No chest pain, angina or palpitation. No PND or orthopnea. Patient denies wheezing or hemoptysis. Patient denies significant change in his weight or appetite. Francesca Mustafa MD [address], [place], [address], [facility] - [place] & [place] 01/17/2023 14:15:32
--- OUTSIDE RECORDS SUMMARY | 2024-08-16 14:49 | XMS_ITS | Clinical Summary ---
Author Organization [facility] Address [address] [place] [address] Care Team Providers Care Middleware Developer Name Role Phone Billie Robb LIRA Primary Care Provider Allergies No known active allergies Medications albuterol 108 (90 Base) MCG/ACT inhaler Inhale 2 puffs every 4 (four) hours if needed for wheezing. Active aspirin 81 MG EC tablet Take 1 tablet (81 mg) by mouth 1 (one) time each day. Active digoxin (Lanoxin) 125 MCG tablet Take by mouth 1 (one) time each day. Active empagliflozin (Jardiance) 10 MG Take 1 tablet (10 mg) by mouth 1 (one) time each day. Active Fluticasone-Ume clidin-Vilant (Trelegy Ellipta) 100-62.5-25 MCG/ACT aerosol powder Inhale 1 (one) time each day. Active gabapentin (Neurontin) 300 MG capsule Take 1 capsule (300 mg) by mouth 3 (three) times a day. Active levothyroxine (Synthroid, Levoxyl) 125 MCG tablet Take 1 tablet (125 mcg) by mouth 1 (one) time each day before breakfast. Active losartan (Cozaar) 100 MG tablet Take 1 tablet (100 mg) by mouth 1 (one) time each day. Active potassium chloride CR (Klor-Con) 8 MEQ ER tablet Take 1 tablet (8 mEq) by mouth 4 (four) times a day. Do not crush, chew, or split. Active rOPINIRole (Requip) 0.25 MG tablet Take 1 tablet (0.25 mg) by mouth 2 (two) times a day. Active torsemide (Demadex) 20 MG tablet Take 1 tablet (20 mg) by mouth 1 (one) time each day. Active torsemide (Demadex) 100 MG tablet Take 1 tablet (100 mg) by mouth 1 (one) time each day. Active traZODone (Desyrel) 50 MG tablet Take 1 tablet (50 mg) by mouth at night if needed. Active warfarin (Coumadin) 1 MG tablet Take 1 tablet (1 mg) by mouth 1 (one) time each day. Take as directed per After Visit Summary. Active Active Problems Problem Noted Date Diagnosed Date BMI 37.0-37.9, adult 05/25/2023 Family History Medical History Relation Name Comments Cardiac disorder Other 1 Hypertension Other 2 Other cancer Other 3 Relation Name Status Comments Other 1 Other 2 Other 3 Social History Tobacco Use Types Packs/Day Years Used Date Smoking Tobacco: Every Day Cigarettes 1 61 Smokeless Tobacco: Never Tobacco Cessation:Ready to Q uit: Not Asked; Counseling Given: Not Answered Alcohol Use Standard Drinks/Week Comments Yes 0 (1 standard drink = 0.6 oz pur e alcohol) occasionally Sex and Gender Information Value Date Recorded Sex Assigned at Not on file Legal Sex Male 8:54 PM EDT Gender Identity Not on file Sexual Orientation Not on file 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 file Not on file Not on file Last Filed Vital Signs Vital Sign Reading Time Taken Comments Blood Pressure 98/59 05/25/2023 12:55 PM EDT Pulse 69 05/25/2023 12:55 PM EDT Temperature - - Respiratory Rate - - Oxygen Saturation 95% 05/25/2023 12:55 PM EDT Inhaled Oxygen Concentration - - Weight 122 kg (269 lb 14.4 oz) 05/25/2023 12:55 PM EDT Height 180.3 cm (5' 11 ) 05/25/2023 12:55 PM EDT Body Mass Index 37.64 05/25/2023 12:55 PM EDT Plan of Treatment Health Maintenance Due Date Last Done Comments [facility]-Depression Screening 1950 [facility]-Infant/Child/Adol SDOH Screenings 1950 [facility]- SDOH Screenings 08/29/1967 [facility]-Adult SDOH Screenings 08/29/1967 CT Colonography 1994 Colonoscopy 1994 FIT-DNA 1994 FIT 1994 FOBT 1994 Sigmoidoscopy 1994 [facility]-Colorectal Cancer Screening 1994 [facility]-Zoster Vaccines (1 of 2) 08/29/1999 [id number] Vaccine (4 - season) 2023 01/24/2021, 05/20/2020, 04/22/2020 [facility]-RSV Vaccine: 60+ Years or (1 - 1-dose 75+ series) 2024 [facility]-Influenza Vaccine (Season Ended) 2024 12/20/2022, 01/06/2022, 01/24/2021, Additional history exists [facility]-DTaP,Tdap,and Td Vaccines (3 - Td or Tdap) 01/29/2032 01/28/2022, 03/13/2014 [facility]-Pneumococcal Vaccine: 50+ Years Completed 03/27/2017, 01/15/2017, 01/10/2016 [facility]-Lung Cancer Screening Discontinued 11/23/2022, HPV Vaccines Aged Out No longer eligi ble based on patient's age to complete this topic [facility]-HIB Vaccines Aged Out No longer e ligible based on patient's age to complete this topic [facility]-Hepatitis A Vaccines Aged Out No longer eligible based on patient's age to complete this topic [facility]-IPV Vaccines Aged Out No longer e ligible based on patient's age to complete this topic [facility]-Rotavirus Vaccines Aged Out No lo nger eligible based on patient's age to complete this topic Insurance MEDICARE [facility] [employer] INS Care Teams Middleware Developer Relationship Specialty Start Date End Date Robb Wise PA [address] [place] [address] PCP - General 05/25/23
--- NOTE | 2024-08-16 15:00 | CT_ITS ---
FINAL REPORT TECHNIQUE: Thin section axial images were obtained from the lung apices to the upper abdomen by computed tomography. Reformatted images were obtained and reviewed. This study was performed with techniques to keep radiation doses al low as reasonably achievable (ALARA). Individualized dose reduction techniques using automated exposure control or adjustment of mA and/or kV according to the patient's size were employed. CLINICAL HISTORY: lung cancer screening smoker 59 years, 1 ppd copd,cad COMPARISON: CTA of the chest 01/27/2023 FINDINGS: CHEST CT LOW DOSE 73-year-old male, current smoker, [id number] history. CTDI vol (mGy): 2.90 DLP (mGy-cm): 109.16 There is no axillary adenopathy. There is no mediastinal or hilar mass or adenopathy. The heart is normal in size. There is a 4.6 cm ascending aortic aneurysm noted, slightly more prominent than the 4.4 cm aneurysm noted on the prior CT of 2022. A trace pericardial effusion is present. Dense coronary artery calcifications are once again noted. There is no pleural effusion. Lung window images demonstrate a nodule in the anterior right lower lobe, measuring 4 mm in size, best seen on image #48 of series 4. There is a left upper lobe nodule also measuring 4 mm in size, best seen on image #39 of series 4. Limited images of the upper abdomen are unremarkable. IMPRESSION: Lung-RADS category 2. Recommend 12 month follow up low dose chest CT. Reviewed, Interpreted and Dictated by Srinivas Conteh MD Transcribed by Padmini Purcell Authenticated and [facility]
== END 2024-08-16 23:59 | disposition home or self-care (01) ==
LOC: RAD 14:47
PROVIDERS: PCP Physician Assistant; Visit Provider Internal Medicine Pulmonary Disease
DX: R91.8 Other nonspecific abnormal finding of lung field (principal); F17.210 Nicotine dependence, cigarettes, uncomplicated; Z12.2 Encounter for screening for malignant neoplasm of respiratory organs
CPT/HCPCS: 71271

== ENCOUNTER 2024-10-30 08:25 | Emergency (ER) | payer MEDICARE, OTHER, SELFPAY ==
[2024-10-30] VITALS (9 sets, daily range): BP systolic 97–150; BP diastolic 46–72; PULSE 39–51; RESP 13–16; TEMP 36.8–36.9; O2SAT 93–99; BMI 36.2
--- OUTSIDE RECORDS SUMMARY | 2024-10-30 08:41 | XMS_ITS | Encounter Summary ---
Author Organization [facility] Address [address] [place] [id number] Care Team Providers Care Metal Furniture Repairer Name Role Phone Domenic Lua MD Primary Care Provider [phone] Encounter Details Date Type Department Care Team (Late Contact Info) Description 08/19/2024 Results Follow-Up [facility] [address] [facility] [place] [address] Domenic Lua MD [address] [facility] [place] [address] Social History Tobacco Use Types Packs/Day Years Used Date Smoking Tobacco: Every Day Cigarettes 1 57 Smokeless Tobacco: Never Comments:Has cut back from 2 packs to less than a pack. Alcohol Use Standard Drinks/Week Comments Yes 6 (1 standard drink = 0.6 oz pur e alcohol) PHQ-2 Answer Date Recorded Retired PHQ-9: Brief Depression Severity Measure Score 12 04/27/2022 PHQ-2 Answer Date Recorded Retired PHQ-9: Brief Depression Severity Measure Score 1 06/13/2023 Sex and Gender Information Value Date Recorded Sex Assigned at Not on file Legal Sex Male 11:57 AM EST Gender Identity Not on file Sexual Orientation Not on file documented as of this encounter Plan of Treatment Upcoming Encounters Date Type Department Care Team (Late st Contact Info) Description 02/03/2025 4:00 PM EST Office Visit [facility] [address] [facility] [place] [address] Domenic Lua MD [address] [place] [address] documented as of this encounter Visit Diagnoses Not on filedocumented in this encounter Additional Health Concerns Assessment Noted Time PHQ-2 Depression Total Score: 1 06/13/19 24 11:22 AM EDT documented as of this encounter Care Teams Metal Furniture Repairer Relationship Specialty Start Date End Date Domenic Lau MD [address] [facility] [place] [address] PCP - General Family Medicine 12/28/23 documented as of this encounter
--- OUTSIDE RECORDS SUMMARY | 2024-10-30 08:41 | XMS_ITS | Clinical Summary ---
Author Organization [facility] Address [address] [place] [address] Care Team Providers Care Personnel Coordinator Name Role Phone Domenic Lua MD Primary Care Provider [phone] Allergies No known active allergies Medications levothyroxine (SYNTHROID, LEVOTHROID) 125 MCG tablet Take 1 tablet by mouth Daily. Active atorvastatin (LIPITOR) 40 MG tablet Take 1 tablet by mouth Daily. Active rOPINIRole (REQUIP) 2 MG tablet Take 1 tablet by mouth 2 (Two) Times a Day. Active potassium chloride (K-DUR,KLOR-CON ) 20 MEQ CR tablet Take 1 tablet by mouth 4 (Four) Times a Day. Active DIGOX 125 MCG tablet Take 1 tablet by mouth Daily. 0 04/17/19 19 Active warfarin (COUMADIN) 5 MG tablet Take 1 tablet by mouth Daily. MWF- LD - LETTER ON CHART 10/11/19 19 Active warfarin (COUMADIN) 4 MG tablet Take 1 tablet by mouth Daily. All other days of the week - LD - LETTER ON CHART 10/11/19 19 Active Additional Information Patient taking differently:4 mg Oral Daily Warfarin, All other days of the week - LD - LETTER ON [id number] alternating with 5 mg5mg on Monday and 4mg other days, Reported on 10/27/2022 sennosides-docu sate (PERICOLACE) 8.6-50 MG per tablet Take 2 tablets by mouth Every Night. Hold for loose stools 60 tablet 0 8:55 AM EDT 04/22/20 20 Active albuterol sulfate HFA 108 (90 Base) MCG/ACT inhalerIndicati ons:Wheezing,CO PD, mild Inhale 2 puffs Every 4 (Four) Hours As Needed for Wheezing or Shortness of Air. 1 inhaler 11 07/15/19 20 Active methocarbamol (ROBAXIN) 750 MG tabletIndicatio ns:Cervical spondylosis with myelopathy,Neck pain with history of cervical spinal surgery Take 1 tablet by mouth 3 (Three) Times a Day As Needed for Muscle Spasms. 60 tablet 2 08/12/19 23 Active albuterol (PROVENTIL) (2.5 MG/3ML) 0.083% nebulizer solutionIndicat ions:COPD with acute exacerbation Take 2.5 mg by nebulization Every 4 (Four) Hours As Needed for Wheezing. 300 mL 12 10/27/19 23 Active Budeson-Glycopy rrol-Formoterol (Breztri Aerosphere) 160-9-4.8 MCG/ACT aerosol inhalerIndicati ons:COPD with acute exacerbation Inhale 2 puffs 2 (Two) Times a Day. 10.7 g 5 10/28/19 23 Active clopidogrel (PLAVIX) 75 MG tablet 06/02/19 24 Active empagliflozin (JARDIANCE) 10 MG tablet tablet Take 1 tablet by mouth Daily. Active Fluticasone-Ume clidin-Vilant (Trelegy Ellipta) 100-62.5-25 MCG/ACT inhaler Inhale Daily. Active torsemide (DEMADEX) 100 MG tablet 05/25/19 24 Active losartan (COZAAR) 100 MG tablet Take 1 tablet by mouth Daily. 12/12/19 24 Active neomycin-polymy olimpia-dexamethame thasone (POLYDEX) 3.5-13938-0.1 ointment ophthalmic ointment Apply 1 cm strip into the lower lid of right eye twice daily 3.5 g 5 12:38 PM EDT 06/12/19 25 Active gabapentin (NEURONTIN) 300 MG capsuleIndicati ons:Thoracic myelopathy Take 1 capsule by mouth 3 times a day. 90 capsule 3 08/02/19 25 Active traZODone (DESYREL) 50 MG tabletIndicatio ns:Insomnia due to medical condition TAKE ONE TABLET BY MOUTH AT BEDTIME 90 tablet 1 10/09/19 25 Active traZODone (DESYREL) 50 MG tabletIndicatio ns:Insomnia due to medical condition TAKE ONE TABLET BY MOUTH AT BEDTIME 90 tablet 02/05/20 24 2024 Discontinued Active Problems Problem Noted Date Diagnosed Date Meningioma 05/12/2022 Coronary artery disease invo lving [place] coronary artery of [place] heart without angina pectoris 04/19/2021 Cervical myelopathy with cervical radiculopathy 03/09/2021 RUE weakness 03/09/2021 Weakness of right lower extremity 03/09/2021 Ataxic gait 03/09/2021 COPD (chronic obstructive pulmonary disease) Atrial fibrillation 06/29/2019 Thoracic myelopathy 06/13/2019 Overview (06/13/2019): Added automatically from request for surgery [id number] Class 2 severe obesity due t o excess calories with serious comorbidity and body mass index (BMI) of 36.0 to 36.9 in adult 02/26/2019 Lumbar stenosis with neurogenic claudication 07/2018 Overview (09/14/2018): Added automatically from request for surgery [id number] Cervical spondylosis with myelopathy 06/06/2018 Overview (06/06/2018): Added automatically from request for surgery [id number] Cigarette nicotine dependence without complicati on 03/27/2017 Numbness and tingling of right leg 03/27/2017 Insomnia due to medical condition 03/27/2017 Pain of right lower extremity 03/27/2017 Essential hypertension 03/27/2017 Mixed hyperlipidemia 03/27/2017 Other specified hypothyroidism 03/27/2017 BMI 36.0-36.9,adult 03/27/2017 Resolved Problems Problem Noted Date Diagnosed Date Resolved Date Lobar pneumonia 06/29/2019 07/03/2019 Acute respiratory failure with hypoxemia 06/29/2019 07/03/2019 Intervertebral thoracic disc disorder with myelopathy, thoracic region 06/25/2019 07/03/2019 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 [address] [place] [address] Domenic Lua MD 08/01/2024 3:15 PM EDT Office Visit [facility] [address] [place] [address] Domenic Lua MD Thoracic myelopathy (Primary Dx) 08/01/2024 Travel from Last 3 Months Immunizations Immunization Administration Dates Next Due COVID-19 (MODERNA) 1st,2nd,3 rd Dose Monovalent 01/24/2021,05/20/2020,04/22/2020 FLUAD TRI 65YR+ 12/12/2023,12/10/2016 Fluad Quad 65+ 01/24/2021 Fluzone >6mos 01/10/2016 Fluzone High-Dose 65+yrs 12/20/2022,01/06/2022,1 Pneumococcal Conjugate 13-Valent (PCV13) 016 Pneumococcal Polysaccharide (PPSV23) 03/27/2017, 01/15/2017 Td, Not Adsorbed 01/28/2022 Tdap 03/13/2014 flucelvax quad pfs =>4 YRS 12/24/2018 Family History Medical History Relation Name Comments Diabetes Brother Jung Hypertension Brother Jung Cancer Mother Francoise Hypertension Sister Relation Name Status Comments Brother Jung Mother Francoise Sister Social History Tobacco Use Types Packs/Day Years Used Date Smoking Tobacco: Every Day Cigarettes 1 57 Smokeless Tobacco: Never Tobacco Cessation:Ready to Q uit: Not Asked; Counseling Given: Not Answered Comments:Has cut back from 2 packs to [...] on file Sexual Orientation Not on file Last Filed Vital Signs Vital Sign Reading Time Taken Comments Blood Pressure 126/64 08/01/2024 3:05 PM EDT Pulse 68 08/01/2024 3:05 PM EDT Temperature 36.4 C (97.5 F) 08/01/2024 3:05 PM EDT Respiratory Rate 18 08/01/2024 3:05 PM EDT Oxygen Saturation 95% 12/12/2023 10:13 AM EDT Inhaled Oxygen Concentration - - Weight 116 kg (255 lb) 08/01/2024 3:05 PM EDT Height 180.3 cm (5' 11 ) 08/01/2024 3:05 PM EDT Body Mass Index 35.57 08/01/2024 3:05 PM EDT Plan of Treatment Upcoming Encounters Date Type Department Care Team (Late st Contact Info) Description 02/03/2025 4:00 PM EST Office Visit [facility] [address] [facility] [address] [place] [address] Domenic Lua MD [address] [facility] [address] Health Maintenance Due Date Last Done Comments COLOGUARD 1994 COLON CANCER SCREENING [address] COLONOGRAPHY 1994 FECAL OCCULT BLOOD TEST 1994 FIT Testing (1 year) 1994 COLONOSCOPY 03/13/2023 03/13/2013 (Patient-Reported (Performed Externally)) COLORECTAL CANCER SCREENING 03/13/2023 ANNUAL WELLNESS VISIT 04/27/2023 04/27/2022 , 04/19/2021, 04/14/2020, Additional history exists LIPID PANEL 12/24/2023 12/23/2022, 04/13, 05/09/2019, Additional history exists COVID-19 Vaccine ( season) 2024 12/12/2023, 01/24/2021, 05/20/2020, Additional history exists RSV Vaccine - Adults (1 - 1-dose 75+ series) 2024 LUNG CANCER SCREENING 10/25/2024 10/26/2023 , 11/23/2022, 11/23/2022, Additional history exists INFLUENZA VACCINE 12/11/2024 12/12/2023, , 01/06/2022, Additional history exists ZOSTER VACCINE (2 of 2) 12/11/2024 07/20/2017 (Decli octavia) Postponed from 09/14/2017 (Pending event) TDAP/TD VACCINES (3 - Td or Tdap) 01/29/2032 01/28/2022, 03/13/2014 Pneumococcal Vaccine 50+ Completed 018, 01/15/2017, 01/10/2016 HEPATITIS C SCREENING Completed 07/20/2017, 018 HEMOGLOBIN A1C Discontinued 06/25/2019, 05/12, 03/27/2017 AAA SCREEN ONCE Completed 01/22/2024, 01/12, 01/27/2023, Additional history exists Medical Devices Implanted Type Area Roofing Apprentice Device Identifier Shelf Expiration Date Model / Serial / Lot Bone Lordotic Asr [id number] Fzd - [id number] Implanted:Qty: 1 on 06/14/2018 by Elliott Briscoe MD at [facility] Implant N/A: Spine Cervical [employer] 05/24/2020 [id number] / / [id number] Bone Cerv Cornerstone Lasr [id number] - [id number] Implanted:Qty: 1 on 06/14/2018 by Elliott Briscoe MD at [facility] Implant N/A: Spine Cervical [employer] 12/21/2020 [id number] / / [id number] Plt Cerv Ant Zevo 2lvl 37mm - [id number] Implanted:Qty: 1 on 06/14/2018 by Elliott Briscoe MD at [facility] Implant N/A: Spine Cervical [employer] [id number] / / Scrw St Zevo 2thrd S/Tap 3.5x13mm - [id number] Implanted:Qty: 6 on 06/14/2018 by Elliott Briscoe MD at [facility] Implant N/A: Spine Cervical [employer] [id number] / / Kt Matrx Floseal Hemo Fast Prep 10ml - [id number] Implanted:Qty: 1 on 06/28/2019 by Elliott Briscoe MD at [facility] Implant N/A: Spine Thoracic [employer] [id number] / / Duralmatrix Duragen Pls 2x2in Ea/5 - [id number] Implanted:Qty: 1 on 06/28/2019 by Elliott Briscoe MD at [facility] Implant N/A: Spine Thoracic INTE[employer] 10/10/2021 [id number] / / [id number] Cardiac Stent Description:X1 in 2015 Procedures Procedure Name Priority Date/Time Associated Diagnosis Comments SCANNED - IMAGING 08/16/2024 CT CHEST LOW DOSE WO CANCER SCREENING Routine 11/23/2022 4:02 PM EDT Encounter for screening for malignant neoplasm of lung Personal history of nicotine dependence US AAA SCREEN LIMITED Routine 04/29/2020 10:03 AM EST Screening for AAA (abdominal aortic aneurysm) Cigarette nicotine dependence with other nicotine-induced disorder Essential hypertension HEMOGLOBIN A1C Routine 06/25/2019 1:31 PM EDT HEPATITIS C ANTIBODY Routine 07/20/2017 2:53 PM EDT Need for hepatitis C screening test from Last 3 Months or Most Recently Relevant to Health Maintenance Results * IMAGING SCANNED (08/16/2024) Anatomical Region Laterality Modality Radiographic Soledad ging us Domenic Lua MD IMG DIAGNOSTIC IMAGING ORDERABL ES Final Result * CT Chest Low Dose Wo (11/23/2022 4:02 PM EDT) Anatomical Region Laterality Modality Chest Computed Tomogra phy 11/24/2022 8:08 AM EDT Impressions 11/24/2022 8:16 AM EDT Impression: No lung mass or discrete/suspicious pulmonary nodule. Perihilar and lower lobe bronchial wall thickening and scattered mucous plugging, likely sequelae of smoking-associated bronchitis. Recommendation: Continue annual screening with LDCT Lung Rads Assessment: Lung-RADS L1 - Negative, <1% chance of malignancy. Electronically Signed: Todd Almonte MD 11/24/2022 8:16 AM EDT Workstation ID: [id number] Narrative 11/24/2022 8:[address] CHEST LOW DOSE CANCER SCREENING WO Date of Exam: 11/23/2022 3:49 PM EDT Indication: Lung cancer screening, >= 20 pk-yr smoking history (Age >= 50y). Comparison: CT chest 06/29/2019 Technique: Low dose CT imaging of the chest was performed without intravenous contrast enhancement. Automated exposure control and iterative reconstruction methods were used. Findings: Diminutive right thyroid lobe. There are scattered atherosclerotic calcifications of the thoracic aorta with some ectasia of the ascending aorta. There is multichamber cardiac enlargement. There is a trace pericardial effusion. There are coronary artery calcifications. Unremarkable appearance of the anterior mediastinum. Unremarkable appearance of the thoracic esophagus. There are couple small calcified mediastinal and right hilar lymph nodes compatible sequelae of healed granulomatous disease. No bulky or suspicious thoracic lymph nodes. Unremarkable appearance of the chest wall soft tissues. The trachea and mainstem bronchi are patent. There is perihilar and lower lobe bronchial wall thickening with scattered mucous plugging. The lungs are clear without focal consolidation or evidence of active infectious or inflammatory process. There are couple subcentimeter calcified granulomas in the right lower lobe. No lung mass. No discrete/suspicious pulmonary nodule. No pleural effusion or pneumothorax. No acute or suspicious bony findings. There is laminectomy change T7-T8. Unremarkable appearance of the upper abdomen. Procedure Note Todd Almonte MD - 11/24/2022 CT CHEST LOW DOSE CANCER SCREENING WO Date of Exam: 11/23/2022 3:49 PM EDT Indication: Lung cancer screening, >= 20 pk-yr smoking history (Age >=50y). Comparison: CT chest 06/29/2019 Technique: Low dose CT imaging of the chest was performed withoutintravenous contrast enhancement. Automated exposure control anditerative reconstruction methods were used. Findings: Diminutive right thyroid lobe. There are scattered atheroscleroticcalcifications of the thoracic aorta with some ectasia of the ascendingaorta. There is multichamber cardiac enlargement. There is a tracepericardial effusion. There are coronary artery calcifications. Unremarkable appearance of the anterior mediastinum.Unremarkable appearance of the thoracic esophagus. There are couple smallcalcified mediastinal and right hilar lymph nodes compatible sequelae ofhealed granulomatous disease. No bulky or suspicious thoracic lymph nodes. Unremarkable appearance of the chestwall soft tissues. The trachea and mainstem bronchi are patent. There isperihilar and lower lobe bronchial wall thickening with scattered mucousplugging. The lungs are clear without focal consolidation or evidence of active infectious orinflammatory process. There are couple subcentimeter calcified granulomasin the right lower lobe. No lung mass. No discrete/suspicious pulmonarynodule. No pleural effusion or pneumothorax. No acute or suspicious bony findings. There is laminectomy change T7- T8.Unremarkable appearance of the upper abdomen. IMPRESSION: Impression: No lung mass or discrete/suspicious pulmonary nodule. Perihilar and lower lobe bronchial wall thickening and scattered mucousplugging, likely sequelae of smoking-associated bronchitis. Recommendation: Continue annual screening with LDCT Lung Rads Assessment: Lung-RADS L1 - Negative, <1% chance of malignancy. Electronically Signed: Todd Almonte MD 11/24/2022 8:16 AM EDT Workstation ID: [id number] Robb [facility] ORDERABLES Final Result * US aaa screen limited (04/29/2020 10:03 AM EST) Anatomical Region Laterality Modality Body, Abdomen, Vascular Ultrasou nd 04/29/2020 11:1 1 AM EST Impressions 04/29/2020 11:11 AM EST Nonaneurysmal abdominal aorta with maximum dimension 2.4 cm proximally. This report was finalized on 04/29/2020 11:11 AM by Ricky Frey. Narrative 04/29/2020 11:11 AM EST EXAMINATION: US AAA SCREEN LIMITED- INDICATION: screening for AAA; Z13.6-Encounter for screening for cardiovascular disorders; F17.218-Nicotine dependence, cigarettes, with other nicotine-induced disorders; P13-Uxclmoeoz (primary) hypertension COMPARISON: NONE FINDINGS: Sonographic grayscale and color Doppler evaluation of the abdominal aorta demonstrates maximum dimension 2.4, 1.9 and 1.7 cm, proximal, mid and distal respectively. Unremarkable iliac arteries. Procedure Note Ricky Frey MD - 04/29/2020 EXAMINATION: US AAA SCREEN LIMITED- INDICATION: screening for AAA; Z13.6-Encounter for screening for cardiovascular disorders; F17.218-Nicotine dependence, cigarettes, with other nicotine-induced disorders; W29-Jqmluqahq (primary) hypertension COMPARISON: NONE FINDINGS: Sonographic grayscale and color Doppler evaluation of the abdominal aorta demonstrates maximum dimension 2.4, 1.9 and 1.7 cm, proximal, mid and distal respectively. Unremarkable iliac arteries. IMPRESSION: Nonaneurysmal abdominal aorta with maximum dimension 2.4 cm proximally. This report was finalized on 04/29/2020 11:11 AM by Ricky Frey. Robb [facility] G US ORDERABLES Final Result * (ABNORMAL) Hemoglobin A1c (06/25/2019 1:31 PM EDT) Hemoglobin A1C 5.90(H) 4.80 - 5.60 % 06/25/2019 2:07 PM EDT [facility] Blood Venipuncture / Unknown 06/25/2019 1:31 PM EDT 06/25/2019 1:52 PM EDT Narrative [facility] - 06/25/2019 2:07 PM EDT Hemoglobin A1C Ranges: Increased Risk for Diabetes 5.7% to 6.4% Diabetes >= 6.5% Diabetic Goal < 7.0% Elliott Briscoe MD LAB BLOOD ORDERABLES Final Re sult [facility]
[address] [place] [address], * Hepatitis C Antibody (07/20/2017 2:53 PM EDT) Hep C Virus Ab <0.1 0.0 - 0.9 s/co ratio [facility] Comment: Negative: < 0.8 Indeterminate: 0.8 - 0.9 Positive: > 0.9 The CDC recommends that a positive HCV antibody result be followed up with a HCV Nucleic Acid Amplification test (197093). Blood 07/20/2017 2:53 PM EDT 07/21/2017 Narrative [facility] (AMBULATORY) - 07/22/2017 8:18 AM EDT Performed at: - [address] [id number] Saturator Tender: Brian Gore PhD, Phone: [phone] Robb [facility] LAB BLOOD ORDERABLES Final Res ult [facility] (AMBULATORY) [address] [place] [address], [facility] [address] [place] [address], from Last 3 Months or Most Recently Relevant to Health Maintenance Insurance MEDICARE A & B Member Subscriber Plan / Payer (Ef fective 2014-Present) Name:Nathan Reid Member ID:[id number] Relation to Subscriber:Self Name:Nathan Reid Subscriber ID:[id number] Payer ID:[id number] Group ID:Not on file Type:Not on file Address: [facility] [id number] [place] [address] Advance Directives * CPR (Attempt to Resuscitate) (Latest Code Status on File) Date Activated Date Inactivated Comments 06/28/2019 8:33 AM 07/03/2019 3:48 PM Question Answer Comments Code Status (Patient has no pulse and is not breathing): CPR (Attempt to Resuscitate) Medical Interventions (Patie nt has pulse or is breathing): Full * CPR (Attempt to Resuscitate) Date Activated Date Inactivated Comments 10/04/2018 5:54 PM 10/05/2018 3:55 PM Question Answer Comments Code Status (Patient has no pulse and is not breathing): CPR (Attempt to Resuscitate) Medical Interventions (Patie nt has pulse or is breathing): Full * CPR (Attempt to Resuscitate) Date Activated Date Inactivated Comments 06/14/2018 9:43 AM 06/15/2018 10:24 AM Question Answer Comments Code Status (Patient has no pulse and is not breathing): CPR (Attempt to Resuscitate) Medical Interventions (Patie nt has pulse or is breathing): Full Care Teams Personnel Coordinator Relationship Specialty Start Date End Date Domenic Lua MD [address] [place] [address] PCP - General Family Medicine 12/28/23
--- OUTSIDE RECORDS SUMMARY | 2024-10-30 08:41 | XMS_ITS | Encounter Summary ---
[facility] Address [address] [place] [id number] Care Team Providers Care Gas Jockey Name Role Phone Domenic Lua MD Primary Care Provider [phone] Encounter Details Date Type Department Care Team (Late Contact Info) Description 04/12/2019 Telephone [facility] [address] [facility] [address] Robb Wise PA 210 [facility] [place] [address] Social History Tobacco Use Types Packs/Day Years Used Date Smoking Tobacco: Every Day Cigarettes 1.5 57 Smokeless Tobacco: Never Comments:Has cut back from 2 packs to less than a pack. Alcohol Use Standard Drinks/Week Comments Yes 6 (1 standard drink = 0.6 oz pur e alcohol) PHQ-2 Answer Date Recorded PHQ-2 Score 0 01/26/2018 Sex and Gender Information Value Date Recorded Sex Assigned at Not on file Legal Sex Male 11:57 AM EST Gender Identity Not on file Sexual Orientation Not on file documented as of this encounter Plan of Treatment Upcoming Encounters Date Type Department Care Team (Late Contact Info) Description 02/03/2025 4:00 PM EST Office Visit [facility] [address] [place] [address] Domenic Lua MD [address] [facility] [place] [address] documented as of this encounter Visit Diagnoses Not on filedocumented in this encounter Additional Health Concerns Infection Onset Date Last Indicated Resolved Time COVID (rule out) 06/29/2019 06/29/2019 07/01/2019 10:51 AM EDT documented as of this encounter Care Teams Gas Jockey Relationship Specialty Start Date End Date Domenic Lua MD [address] [place] [address] PCP - General Family Medicine 12/28/23 documented as of this encounter
--- OUTSIDE RECORDS SUMMARY | 2024-10-30 08:41 | XMS_ITS | Encounter Summary ---
[facility] Address [address] [place] [id number] Care Team Providers Care Dial Brusher Name Role Phone Domenic Lua MD Primary Care Provider Encounter Details Date Type Department Care Team (Late Contact Info) Description 07/22/2024 Results Follow-Up [facility] [address] [facility] [place] [address] Domenic Lua MD [address] [facility] [place] [address] Social History Tobacco Use Types [...] Description 02/03/2025 4:00 PM EST Office Visit [facility] [address] [facility] [place] [address] Domenic Lua MD [address] [place] [address] documented as of this encounter Visit Diagnoses Not on filedocumented in this encounter Additional Health Concerns Assessment Noted Time PHQ-2 Depression Total Score: 1 06/13/19 24 11:22 AM EDT documented as of this encounter Care Teams Dial Brusher Relationship Specialty Start Date End Date Domenic Lua MD [address] [facility] [place] [address] PCP - General Family Medicine 12/28/23 documented as of this encounter
--- OUTSIDE RECORDS SUMMARY | 2024-10-30 08:41 | XMS_ITS | Encounter Summary ---
[facility] [address] [place] [id number] Care Team Providers Care Business Support Manager Name Role Phone Domenic Lua MD Primary Care Provider [phone] Reason for Visit * Reason Comments Med Refill Encounter Details Date Type Department Care Team (Late st Contact Info) Description 10/08/[address] [facility] [address] [place] [address] Robb Wise PA [address] [place] [address] Insomnia due to medical condition Social History Tobacco Use Types Packs/Day Years [...] on file documented as of this encounter Miscellaneous Notes * Telephone Encounter - Domenic Lua MD - 10/08/2024 5:04 PM EDT Trazodone sent to pharmacy. Has appointment follow-up in January with me. He sees me for gabapentin. documented in this encounter Plan of Treatment Upcoming Encounters Date Type Department Care Team (Late st Contact Info) Description 02/03/2025 4:00 PM EST Office Visit [facility] [address] [place] [id number] Domenic Lua MD [address] [place] [address] documented as of this encounter Visit Diagnoses Diagnosis Insomnia due to medical condition Organic insomnia, unspecified documented in this encounter Additional Health Concerns Assessment Noted Time PHQ-2 Depression Total Score: 1 06/13/19 24 11:22 AM EDT documented as of this encounter Care Teams Business Support Manager Relationship Specialty Start Date End Date Domenic Lua MD [address] [place] [address] PCP - General Family Medicine 12/28/23 documented as of this encounter
--- OUTSIDE RECORDS SUMMARY | 2024-10-30 08:41 | XMS_ITS | Clinical Summary ---
Author Organization [facility] Address [address] [place] [address] Care Team Providers Care Poultry Service Technician Name Role Phone Billie Robb LIRA Primary Care Provider [phone] Allergies No known active allergies Medications albuterol [...] Date Last Done Comments [facility]-Depression Screening 1949 [facility]-/Child/Adol SDOH Screenings 1949 [facility]- SDOH Screenings 08/29/1967 [facility]-Adult SDOH Screenings 08/29/1967 CT Colonography 1994 Colonoscopy 1994 FIT-DNA 1994 FIT 1994 FOBT 1994 Sigmoidoscopy 1994 [facility]-Colorectal Cancer Screening 1994 [facility]-Zoster Vaccines (1 of 2) 08/29/1999 [id number] Vaccine (4 - season) 2023 01/24/2021, 05/20/2020, 04/22/2020 [facility]-RSV Vaccine: 60+ Years or (1 - 1-dose 75+ series) 2024 [facility]-Influenza Vaccine (#1) 11/11/202412/20, 01/06/2022, 01/24/2021, Additional history exists [facility]-DTaP,Tdap,and Td [...] age to complete this topic Insurance MEDICARE [facility] LIFE INS Care Teams Poultry Service Technician Relationship Specialty Start Date End Date Robb Wise PA [address] [place] [address] PCP - General 05/25/23
--- NOTE | 2024-10-30 08:54 | CT_ITS ---
FINAL REPORT TECHNIQUE: Axial images were obtained of the cervical spine by computed tomography. Coronal and sagittal reconstruction process performed. This study was performed with techniques to keep radiation doses as low as reasonably achievable (ALARA). Individualized dose reduction techniques using automated exposure control or adjustment of mA and/or kV according to the patient''s size were employed. CLINICAL HISTORY: midline neck pain FINDINGS: Cervical vertebrae show normal height. There is anterior and interbody fusion bridging C5-6 and C6-7. There is mild reversal of the cervical lordosis. Asymmetric left facet hypertrophy is noted, particularly at C3-4 and C4-5. The facets are properly aligned. C2-3: No significant canal stenosis or neuroforaminal narrowing. C3-4: Endplate hypertrophy, eccentric to the left. Facet hypertrophy with moderate to high-grade spinal canal stenosis. C4-5: Mild endplate hypertrophy and bilateral facet hypertrophy. Moderate to high-grade right and high-grade left neural foraminal narrowing. C5-6: Prominent posterior osteophyte formation in the midline and eccentric to the right with moderate bilateral neuroforaminal narrowing. C6-7: Endplate hypertrophy with mild to moderate bilateral neural foraminal narrowing. C7-T1: Mild endplate hypertrophy with mild bilateral neuroforaminal narrowing. IMPRESSION: Anterior and interbody fusion bridging C5-6 and C6-7. Multilevel degenerative disc disease with spinal and neuroforaminal compromise as detailed above. Reviewed, Interpreted and Dictated by Srinivas Conteh MD Transcribed by Radha Glover Authenticated and [facility]
--- NOTE | 2024-10-30 09:00 | PC.NURSE ---
reprots that pt wears 3L NC baseline at home. pt reports that he does not wear it all the time, states that pt does wear it most of the time . 3L NC placed on pt per request.
[2024-10-30] MEDS: BUPIVACAINE 0.25% IJ (09:12)
[2024-10-30] MEDS: EPI IJ (09:12)
[2024-10-30] MEDS: LIDOCAINE 1% 10ML MDV 10 ML IM (09:13)
[2024-10-30] MEDS: DEXAMETHASONE 4MG/ML 1ML VIAL 4 MG IM (09:13)
--- NOTE | 2024-10-30 09:18 | HMH.EDGENADL ---
Discharge Plan Disposition Patient Disposition: Home, Self-Care Prescriptions Prescriptions: New lidocaine 4 % adhesive patch,medicated 1 patch topical DAILY Qty: 5 0RF Rx Instructions: may leave on for up to 12 hrs hydrocodone-acetaminophen 5-325 mg tablet 1 tab PO Q6H PRN (Reason: pain) 3 Days Qty: 12 0RF prednisone 50 mg tablet 50 mg PO DAILY 5 Days Qty: 5 0RF Rx Instructions: Please begin 1 day after ED visit cyclobenzaprine 5 mg tablet 5 mg PO TID PRN (Reason: muscle spasm) 5 Days Qty: 15 0RF No Action Stiolto Respimat 2.5-2.5 mcg/actuation mist 2 puff inhalation DAILY 90 Days Qty: 4 2RF ipratropium-albuterol 0.5 mg-3 mg(2.5 mg base)/3 mL solution for nebulization 3 ml inhalation QID PRN (Reason: shortness of breath or wheezing) 90 Days Qty: 270 3RF enoxaparin [Lovenox] 120 mg/0.8 mL syringe 120 mg SQ Q12H 6 Days Qty: 9.6 0RF trazodone 50 mg tablet 50 mg PO QHS PRN (Reason: Insomnia) warfarin 5 mg tablet PO levothyroxine [Synthroid] 125 mcg tablet 125 mcg PO DAILY Qty: 90 4RF warfarin 4 mg tablet See Rx Instructions .ROUTE .COMPLEX Qty: 90 3RF Dose Instruction: TAKE ONE TABLET BY MOUTH ONCE A DAY OR DIRECTED Rx Instructions: TAKE ONE TABLET BY MOUTH ONCE A DAY OR DIRECTED torsemide 100 mg tablet 100 mg PO DAILY Qty: 30 11RF losartan 100 mg tablet See Rx Instructions .ROUTE .COMPLEX Qty: 30 11RF Dose Instruction: TAKE ONE TABLET BY MOUTH ONCE A DAY Rx Instructions: TAKE ONE TABLET BY MOUTH ONCE A DAY warfarin 4 mg tablet 5 mg PO DAILY Qty: 60 11RF Rx Instructions: TAKE ONE TABLET BY MOUTH ONCE A DAY OR DIRECTED 5MG ON MONDAY potassium chloride 20 mEq tablet,ER particles/crystals See Rx Instructions .ROUTE .COMPLEX Qty: 360 3RF Dose Instruction: TAKE ONE TABLET BY MOUTH FOUR TIMES A DAY Rx Instructions: TAKE ONE TABLET BY MOUTH FOUR TIMES A DAY clopidogrel 75 mg tablet See Rx Instructions .ROUTE .COMPLEX Qty: 90 3RF Dose Instruction: TAKE ONE TABLET BY MOUTH ONCE A DAY Rx Instructions: TAKE ONE TABLET BY MOUTH ONCE A DAY Jardiance 10 mg tablet 10 mg PO DAILY Qty: 30 6RF ropinirole 2 mg tablet See Rx Instructions .ROUTE .COMPLEX Qty: 180 3RF Dose Instruction: TAKE ONE TABLET BY MOUTH 2 TIMES A DAY Rx Instructions: TAKE ONE TABLET BY MOUTH 2 TIMES A DAY atorvastatin 40 mg tablet 40 mg PO DAILY 30 Days Qty: 30 6RF levothyroxine [Synthroid] 137 mcg tablet 137 mcg PO DAILY Qty: 90 3RF digoxin 125 mcg (0.125 mg) tablet See Rx Instructions .ROUTE .COMPLEX Qty: 90 3RF Dose Instruction: TAKE ONE TABLET BY MOUTH ONCE A DAY Rx Instructions: TAKE ONE TABLET BY MOUTH ONCE A DAY albuterol sulfate 8.5 GM HFA aerosol inhaler 2 puff IH Q4HP PRN (Reason: Wheezing) Qty: 1 0RF gabapentin 300 mg capsule 300 mg PO TID (DME) walker Misc See Rx Instructions .Route Qty: 1 0RF Rx Instructions: As directed Referrals Follow up/Referrals: Robb Wies PA [Primary Care Provider, Medical] - See instructions Activity Restrictions/Add. Instructions Additional Instructions/Restrictions: As discussed your symptoms are consistent with focal musculoskeletal pain around your greater occipital nerve and paraspinal musculature in your cervical spine region. Without any neurologic or vascular symptoms no further diagnostic workup was indicated. Please follow-up with your spine surgeon if you continue to have discomfort if you have any neurologic symptoms that we discussed please return to the emergency department any high fevers or other concerns also return. There is some diagnostic uncertainty with exactly what is causing your symptoms but the working diagnosis right now is a musculoskeletal strain of some sort. Clinical Impressions Clinical Impression: Cervical paraspinal muscle spasm, Occipital neuralgia Print Language Print Language: Telugu Discharge ED Provider: Jorge Alberto Sandoval General Adult HPI General Chief complaint: PAIN Stated complaint: neck pain Time Seen by Provider: 10/30/24 08:43 Mode of Arrival: Wheelchair Source of Information: Patient and Spouse Description of Symptoms (Recalled from ER Triage Doc. by RN): pt presents to ED for right sided neck pain. pt reports he noticed pain begin monday, but yesterday the pain got worse. pt reports no known injury. does not work and has not been doing any heavy lifting or work. pt reports no numbness or tingiling. pt states, i feel like something is moving in my neck . History of Present Illness HPI narrative: Patient is a 74-year-old male present today with midline and right-sided superior lateral cervical spine discomfort. No radiation into his arm no strength loss in his upper extremity or changes in sensation etc. Denies any specific mechanism that he is aware of. No fevers or chills no swelling erythema from history standpoint. Related Data Home Medications ?Medication ?Instructions ?Recorded ?Confirmed trazodone 50 mg tablet 50 mg PO QHS PRN Insomnia 04/11/17 08/01/24 gabapentin 300 mg capsule 300 mg PO TID neuropathy 04/23/22 08/01/24 warfarin 5 mg tablet mg PO 05/02/24 08/01/24 Previous Rx's ?Medication ?Instructions ?Recorded albuterol sulfate 90 mcg/actuation 2 puff inhalation Q4HP PRN 05/09/21 aerosol inhaler Wheezing #1 ea levothyroxine 125 mcg tablet 125 mcg PO DAILY hypothyroidism 06/01/22 (Synthroid) #90 tabs walker #1 ea 10/23/22 ipratropium 0.5 mg-albuterol 3 mg 3 ml inhalation QID PRN shortness 07/20/23 (2.5 mg base)/3 mL nebulization of breath or wheezing 90 days #270 soln mL tiotropium 2.5 mcg-olodaterol 2.5 2 puff inhalation DAILY 90 days #4 07/20/23 mcg/actuation mist for inhalation grams (Stiolto Respimat) warfarin 4 mg tablet See Rx Instructions .Route 10/24/23 .COMPLEX #90 tabs losartan 100 mg tablet See Rx Instructions .Route 02/26/24 .COMPLEX #30 tabs torsemide 100 mg tablet 100 mg PO DAILY #30 tabs 02/26/24 warfarin 4 mg tablet 5 mg (1.25 x 4 mg) PO DAILY afib 03/19/24 #60 tabs potassium chloride 20 mEq See Rx Instructions .Route 04/01/24 tablet,extended release(part/cryst) .COMPLEX #360 tabs clopidogrel 75 mg tablet See Rx Instructions .Route 04/30/24 .COMPLEX #90 tabs enoxaparin 120 mg/0.8 mL 120 mg (0.8 mL) SQ Q12H 05/30/24 subcutaneous syringe (Lovenox) perioperative a/c 6 days #9.6 mL empagliflozin 10 mg tablet 10 mg PO DAILY #30 tabs 07/29/24 (Jardiance) ropinirole 2 mg tablet See Rx Instructions .Route 08/19/24 .COMPLEX #180 tabs atorvastatin 40 mg tablet 40 mg PO DAILY 30 days #30 tabs 08/22/24 levothyroxine 137 mcg tablet 137 mcg PO DAILY #90 tabs 09/03/24 (Synthroid) digoxin 125 mcg (0.125 mg) tablet See Rx Instructions .Route 09/09/24 .COMPLEX #90 tabs cyclobenzaprine 5 mg tablet 5 mg PO TID PRN muscle spasm 5 10/30/24 days #15 tabs hydrocodone 5 mg-acetaminophen 325 1 tab PO Q6H PRN pain 3 days #12 10/30/24 mg tablet tabs lidocaine 4 % topical patch 1 patch topical DAILY #5 ea 10/30/24 prednisone 50 mg tablet 50 mg PO DAILY 5 days #5 tabs 10/30/24 Allergies Allergy/AdvReac Type Severity Reaction Status Date / Time No Known Allergies Allergy Verified 08/01/24 11:52 [facility] Disclaimer: The information contained in this section may have been updated after the patient was seen, as this information can be updated by other users. Medical History COPD (chronic obstructive pulmonary disease) Depression Edema Peripheral vascular disease of lower extremity Pulmonary emphysema Smoking greater than 30 pack years BOB (obstructive sleep apnea) Daytime somnolence Dyspnea Gallstones Pericardial effusion Hypothyroidism Right carotid bruit Cardiomyopathy SOB (shortness of breath) Tobacco dependence syndrome Hypertensive heart disease Coronary arteriosclerosis Atrial fibrillation Surgical History History of colonoscopy H/O eye surgery LEFT EYE H/O thyroidectomy Previous back surgery Stented coronary artery Family History Other Cancer Hypertension Thyroid disorder Social History Smoking Status: Current every day smoker tobacco type: cigarettes packs per day: 1 alcohol intake: current alcohol intake frequency: holidays/special occasions only substance use type: denies use current occupational status: retired Travel in the last 8 weeks?: None housing: house Have you lived/traveled outside [place] in past 30 days?: No Contact w/someone who lives/traveled outside [place] past 30 days?: No Exposure to someone with infectious disease in past 14 days?: No Do you have a fever (greater than 100.4 F or 38 C)?: No Have you tested positive for COVID-19?: No Exposed to someone with COVID-19 in past 14 days?: No Do you have a sore throat?: No Do you have a cough?: No Do you have any weakness?: No Do you have any diarrhea?: No Are you experiencing any unusual bleeding?: No Do you have any muscle aches/pain?: No Do you have any abdominal pain?: No Are you experiencing loss of taste or smell?: No Other Medical History Have you received the Flu Vaccine for this season: No Have you received the Pneumonia Vaccine: Yes ROS Obtained: Yes All systems reviewed & no additional complaints except as documented Physical Exam General General appearance: alert and in no apparent distress Neck Neck exam: Present tenderness (There is midline tenderness as well as focal tenderness around the greater occipital nerve no erythema swelling etc. He also has significant paraspinal muscular tenderness in the right cervical spine region) Respiratory Respiratory exam: Present normal lung sounds bilaterally Cardiovascular Cardiovascular exam: Present regular rate and normal rhythm Neurological Exam Neurological exam: Present alert and oriented X3 Medical Decision Making Medical Records Screening: Per USPSTF and CDC recommendations, given the prevalence of disease in our region, it is our hospital?s policy to screen for HIV and viral Hepatitis for all patients aged 18 and over and those with ongoing risk factors. Cipriano Inquiry Pt receiving controlled substance: No Vital Signs: 10/30/24 08:39 10/30/24 09:00 10/30/24 09:26 Temperature 98.2 F Temperature Source Oral Pulse Rate 45 L Pulse Rate [Left Radial] 51 L Respiratory Rate 13 Blood Pressure 123/57 L 119/53 L Blood Pressure [Right Arm] 150/72 H Blood Pressure Mean 79 Blood Pressure Mean [Right Arm] 98 02 Sat by Pulse Oximetry 95 95 95 Oxygen Delivery Method Nasal Cannula Nasal Cannula Oxygen Flow Rate (LPM) 3 3 10/30/24 09:31 10/30/24 10:01 10/30/24 10:31 Temperature Temperature Source Pulse Rate 49 L 41 L 46 L Pulse Rate [Left Radial] Respiratory Rate Blood Pressure 113/54 L 103/54 L 124/62 Blood Pressure [Right Arm] Blood Pressure Mean 70 Blood Pressure Mean [Right Arm] 02 Sat by Pulse Oximetry 97 99 95 Oxygen Delivery Method Nasal Cannula Nasal Cannula Oxygen Flow Rate (LPM) 3 3 10/30/24 11:01 Temperature Temperature Source Pulse Rate 39 L Pulse Rate [Left Radial] Respiratory Rate Blood Pressure 97/46 L Blood Pressure [Right Arm] Blood Pressure Mean Blood Pressure Mean [Right Arm] 02 Sat by Pulse Oximetry 95 Oxygen Delivery Method Nasal Cannula Oxygen Flow Rate (LPM) 3 Orders (Tests/Meds): ED MEDICATIONS Discontinued Medications Generic Name Dose Route Start Last Admin Trade Name Freq PRN Reason Stop Dose Admin Acetaminophen 1,000 mg 10/30/24 09:19 10/30/24 09:29 Acetaminophen 1,000mg/100ml Vial IV 10/30/24 09:20 1,000 mg ONCE ONE Administration Bupivacaine HCl/Epinephrine Bitart 30 ml 10/30/24 09:09 10/30/24 09:12 Bupivacaine 0.25% W/Epi 1:200,000 30ml Vial IJ 10/30/24 09:10 30 ml ONCE ONE Administration Dexamethasone Sodium Phosphate 4 mg 10/30/24 09:09 10/30/24 09:13 Dexamethasone 4mg/Ml 1ml Vial IM 10/30/24 09:10 4 mg ONCE ONE Administration Diazepam 2 mg 10/30/24 10:17 10/30/24 10:30 Diazepam 10mg/2ml Syringe IV 10/30/24 10:18 2 mg ONCE ONE Administration Sodium Chloride 1,000 mls @ 999 mls/hr 10/30/24 09:30 10/30/24 10:32 Sod Chlor 0.9% 1000ml Bag IV 10/30/24 10:30 Infused .Q1H1M MARGARET Infusion Lidocaine 1 each 10/30/24 10:17 10/30/24 10:31 Lidocaine 5% Transdermal Patch TD 10/30/24 10:18 1 each ONCE ONE Administration Lidocaine HCl 10 ml 10/30/24 09:09 10/30/24 09:13 Lidocaine 1% 10ml Mdv IM 10/30/24 09:10 10 ml ONCE ONE Administration Morphine Sulfate 4 mg 10/30/24 09:19 10/30/24 09:30 Morphine 4mg/Ml Syringe IV 10/30/24 09:20 4 mg ONCE ONE Administration ORDERS Category Date Time Status CT cervical spine wo con Stat Cat Scan 10/30/24 08:54 Completed Medical Decision Narrative: Patient with above history and physical. Specifically he has normal median ulnar radial and axillary motor and sensory function. Pulses are normal in the upper extremity soft tissue exam is normal. This is not consistent with significant sciatica vascular pathology or deep space infection at the moment. Most likely this just a musculoskeletal strain. He was focally tender in his greater occipital nerve region I discussed with him the risk and benefits of a occipital nerve block we tried that at first without any significant improvement. Will give IV pain medication and get a noncontrasted CT scan and reassess. CT scan performed which I personally interpreted also reviewed radiology images shows some degenerative changes but no acute emergent medical condition needing neurosurgical intervention. Serial neurologic exams are completely normal vascular exams are normal as well. Patient was given occipital nerve block in addition to multiple IV medications without any significant improvement in his symptoms. As discussed his serial neurologic and vascular exams are all normal no indication for any CTA imaging or MR imaging of his cervical spine as I do not suspect that he has a dissection thrombus etc. I have advised that he return with any strokelike symptoms or any neurologic abnormality in his upper extremity in particular. Given the fact that he is focally tender and that his pain is worse with any type of extension of the neck this is most likely musculoskeletal pathology to the greater occipital and paraspinal musculature region on the right. He does not have any signs or symptoms of meningitis or any deeper concern for soft tissue infection. There is some significant diagnostic uncertainty but no definitive evidence that he needs further diagnostic imaging. I did discuss with him that there is a possibility of admitting him for pain control however he would like to go home and to see if medications will make him feel better. Return precautions emphasized. He understands the diagnostic uncertainty and will return with any persistent or worsening of his symptoms. His at the bedside also understood this and was agreeable to this plan. Procedures Miscellaneous Procedure Procedure Performed: Greater occipital nerve block Indication localized pain around the occipital nerve Patient was consented he had 3 cc of 0.5% bupivacaine 3 cc of 1% lidocaine without epinephrine and 1 cc of 4 mg/mL dexamethasone combined area was prepped with alcohol and a total of 5 cc were injected subcutaneously. No complications noted Critical Care Critical Care Time Critical Care Time: No
[2024-10-30] MEDS: ACETAMINOPHEN 1,000MG/100ML VIAL 1000 MG IV (09:29)
[2024-10-30] MEDS: MORPHINE 4MG/ML SYRINGE 4 MG IV (09:30)
[2024-10-30] MEDS: 0.9 % SODIUM CHLORIDE 1000ML 1,000 ML 999 ML IV (09:30)
[2024-10-30] MEDS: diazePAM 10MG/2ML SYRINGE 2 MG IV (10:30)
[2024-10-30] MEDS: LIDOCAINE 5% TRANSDERMAL PATCH 1 EACH TD (10:31)
== END 2024-10-30 11:40 | disposition home or self-care (01) ==
PROVIDERS: Emergency Provider Student in an Organized Health Care Education/Training Program; PCP Physician Assistant
DX: M54.2 Cervicalgia (principal); M62.838 Other muscle spasm; M54.81 Occipital neuralgia; F17.210 Nicotine dependence, cigarettes, uncomplicated
CPT/HCPCS: 64405; 72125; 96360; 96361; 96374; 96375; 99284; J0131; J1100; J2270; J3360; J7030

== ENCOUNTER 2024-11-14 19:32 | Observation (INO) | payer MEDICARE, OTHER, SELFPAY ==
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
[2024-11-14] VITALS (10 sets, daily range): BP systolic 103–139; BP diastolic 54–75; PULSE 60–94; RESP 16; TEMP 36.7; O2SAT 94–100; BMI 35.4
--- OUTSIDE RECORDS SUMMARY | 2024-11-14 20:12 | XMS_ITS | Encounter Summary ---
[facility] Organization [facility] Address [address] [place] [id number] Care Team Providers Care Credentialing Specialist Name Role Phone Domenic Lua MD Primary Care Provider [phone] Encounter Details Date Type Department Care Team (Late Contact Info) Description 07/22/2024 Results Follow-Up [facility] [address] [facility] [place] [address] Domenic Lua MD [address] [facility] [place] [address] Social History Tobacco Use Types [...] Description 02/03/2025 4:00 PM EST Office Visit [facility] [address] [facility] [place] [address] Domenic Lua MD [address] [place] [address] documented as of this encounter Visit Diagnoses Not on filedocumented in this encounter Additional Health Concerns Assessment Noted Time PHQ-2 Depression Total Score: 1 06/13/19 24 11:22 AM EDT documented as of this encounter Care Teams Credentialing Specialist Relationship Specialty Start Date End Date Domenic Lua MD [address] [place] [address] PCP - General Family Medicine 12/28/23 documented as of this encounter
--- OUTSIDE RECORDS SUMMARY | 2024-11-14 20:12 | XMS_ITS | Encounter Summary ---
[facility] Address [address] [place] [address] Care Team Providers Care Remote Encoding Center Manager Name Role Phone Domenic Lua MD Primary Care Provider [phone] Encounter Details Date Type Department Care Team (Late Contact Info) Description 04/12/2019 Telephone [facility] [address] [facility] [place] [address] Robb Wise PA 210 [facility] [place] [address] Social History Tobacco Use Types [...] Description 02/03/2025 4:00 PM EST Office Visit [facility] [address] [place] [address] Domenic Lua MD [address] [facility] [place] [address] documented as of this encounter Visit Diagnoses Not on filedocumented in this encounter Additional Health Concerns Infection Onset Date Last Indicated Resolved Time COVID (rule out) 06/29/2019 06/29/2019 07/01/2019 10:51 AM EDT documented as of this encounter Care Teams Remote Encoding Center Manager Relationship Specialty Start Date End Date Domenic Lua MD [address] [place] [address] PCP - General Family Medicine 12/28/23 documented as of this encounter
--- OUTSIDE RECORDS SUMMARY | 2024-11-14 20:12 | XMS_ITS | Clinical Summary ---
Author Organization [facility] Address [address] [place] [address] Care Team Providers Care Tool Maintenance Worker Name Role Phone Domenic Lua MD Primary Care Provider [phone] Allergies No known active allergies Medications levothyroxine (SYNTHROID, LEVOTHROID) 125 MCG tablet Take 1 tablet by mouth Daily. Active atorvastatin (LIPITOR) 40 MG tablet Take 1 tablet by mouth Daily. Active rOPINIRole (REQUIP) 2 MG tablet Take 1 tablet by mouth 2 (Two) Times a Day. Active potassium chloride (K-DUR,KLOR-CON) 20 MEQ CR tablet Take 1 tablet by mouth 4 (Four) Times a Day. Active DIGOX 125 MCG tablet Take 1 tablet by mouth Daily. 0 04/17/19 Active warfarin (COUMADIN) 5 MG tablet Take 1 tablet by mouth Daily. [facility]- LD - LETTER ON CHART 10/11/19 19 Active warfarin (COUMADIN) 4 MG tablet Take 1 tablet by mouth Daily. All other days of the week - LD - LETTER ON CHART 10/11/19 19 Active Additional Information Patient taking differently:4 mg Oral Daily Warfarin, All other days of the week - LD - LETTER ON [id number] alternating with 5 mg5mg on Monday and 4mg other days, Reported on 11/05/2024 sennosides-docus ate (PERICOLACE) 8.6-50 MG per tablet Take 2 tablets by mouth Every Night. Hold for loose stools 60 tablet 0 8:55 AM EDT 07/03/19 20 Active albuterol sulfate HFA 108 (90 Base) MCG/ACT inhalerIndicatio ns:Wheezing,COPD , mild Inhale 2 puffs Every 4 (Four) Hours As Needed for Wheezing or Shortness of Air. 1 inhaler 11 07/15/19 Active albuterol (PROVENTIL) (2.5 MG/3ML) 0.083% nebulizer solutionIndicati ons:COPD with acute exacerbation Take 2.5 mg by nebulization Every 4 (Four) Hours As Needed for Wheezing. 300 mL 12 10/27/19 23 Active Budeson-Glycopyr rol-Formoterol (Breztri Aerosphere) 160-9-4.8 MCG/ACT aerosol inhalerIndicatio ns:COPD with acute exacerbation Inhale 2 puffs 2 (Two) Times a Day. 10.7 g 5 10/28/19 23 Active clopidogrel (PLAVIX) 75 MG tablet 06/02/19 24 Active empagliflozin (JARDIANCE) 10 MG tablet tablet Take 1 tablet by mouth Daily. Active Fluticasone-Umec lidin-Vilant (Trelegy Ellipta) 100-62.5-25 MCG/ACT inhaler Inhale Daily. Active torsemide (DEMADEX) 100 MG tablet 05/25/19 24 Active losartan (COZAAR) 100 MG tablet Take 1 tablet by mouth Daily. 12/12/19 24 Active neomycin-polymyx in-dexamethameth asone (POLYDEX) 3.5-39467-0.1 ointment ophthalmic ointment Apply 1 cm strip into the lower lid of right eye twice daily 3.5 g 12:38 PM EDT 06/12/19 25 Active Additional Information Patient not taking.Reported on 11/05/2024 gabapentin (NEURONTIN) 300 MG capsuleIndicatio ns:Thoracic myelopathy Take 1 capsule by mouth 3 times a day. 90 capsule 3 08/02/19 25 Active traZODone (DESYREL) 50 MG tabletIndication s:Insomnia due to medical condition TAKE ONE TABLET BY MOUTH AT BEDTIME 90 tablet 1 10/09/19 25 Active ibuprofen (ADVIL,MOTRIN) 800 MG tabletIndication s:Cervicalgia Take 1 tablet by mouth Every 6 (Six) Hours As Needed for Moderate Pain. 60 tablet 11/06/19 25 Active cyclobenzaprine (FLEXERIL) 10 MG tabletIndication s:Cervicalgia 1 PO QHS 30 tablet 2 11/06/19 25 Active methocarbamol (ROBAXIN) 750 MG tabletIndication s:Cervical spondylosis with myelopathy,Neck pain with history of cervical spinal surgery Take 1 tablet by mouth 3 (Three) Times a Day As Needed for Muscle Spasms. 60 tablet 2 08/12/19 23 025 Discontin ued(Alter davian therapy) Hospital, Clinic, or Other Facility Administered Medication Ordered Dose Route Frequency Start Date End Date Status ketorolac (TORADOL) injection 60 mgIndications:Cervicalgia 60 mg IM Once 11/05/2024 11/05/2024 Ended triamcinolone acetonide (KENALOG-40) injection 40 mgIndications:Cervicalgia 40 mg IM Once 11/05/2024 11/05/2024 Ended Active Problems Problem Noted Date Diagnosed Date Cervicalgia 11/05/2024 Assessment & Plan (11/05/2024 4:39 PM EDT): Patient is not interested in a physical [...] office if interested in a PT referral Meningioma 05/12/2022 Coronary artery disease invo lving [place] coronary artery of [place] heart without angina pectoris 04/19/2021 Cervical myelopathy with cervical radiculopathy 03/09/2021 RUE weakness 03/09/2021 Weakness of right lower extremity 03/09/2021 Ataxic gait 03/09/2021 COPD (chronic obstructive pulmonary disease) Atrial fibrillation 06/29/2019 Thoracic myelopathy 06/13/2019 Overview (06/13/2019): Added automatically from request for surgery [id number] Class 2 severe obesity due t o excess calories with serious comorbidity and body mass index (BMI) of 36.0 to 36.9 in adult 02/26/2019 Lumbar stenosis with neurogenic claudication 07/2018 Overview (09/14/2018): Added automatically from request for surgery [id number] Cervical spondylosis with myelopathy 06/06/2018 Overview (06/06/2018): Added automatically from request for surgery [id number] Cigarette nicotine dependence without complicati on 03/27/2017 [...] Encounters Date Type Department Care Team Description 11/05/2024 4:30 PM EDT Office Visit [facility] [address] [facility] [place] [address] Shameka Thompson PA-C Cervicalgia (Primary Dx) 11/05/2024 Travel 11/01/2024 Results Follow-Up [facility] [address] [place] [address] Domenic Lua MD 10/08/2024 Refill [facility] [address] [place] [address] Robb Wise PA Insomnia due to medical condition 08/27/2024 Telephone [facility] [address] [place] [address] Robb Wise PA 08/19/2024 Results Follow-Up [facility] [address] [place] [id number] Domenic Lua MD from Last 3 Months Immunizations Immunization Administration [...] 20 11/05/2024 3:55 PM EDT Oxygen Saturation 95% 12/12/2023 10:13 AM EDT Inhaled Oxygen Concentration - - Weight 115 kg (254 lb) 11/05/2024 3:55 PM EDT Height 180.3 cm (5' 10.98 ) 11/05/2024 3:55 PM E DT Body Mass Index 35.44 11/05/2024 3:55 PM EDT Plan of Treatment Upcoming Encounters Date Type Department Care Team (Late st Contact Info) Description 02/03/2025 4:00 PM EST Office Visit [facility] [address] [place] [address] Domenic Lua MD [address] [place] [place] [address] Health Maintenance Due Date Last Done Comments COLOGUARD 1994 COLON CANCER SCREENING [address] COLONOGRAPHY 1994 FECAL OCCULT BLOOD TEST 1994 FIT Testing (1 year) 1994 COLONOSCOPY 03/13/2023 03/13/2013 (Patient-Reported (Performed Externally)) COLORECTAL CANCER SCREENING 03/13/2023 ANNUAL WELLNESS VISIT 04/27/2023 04/27/2022 , 04/19/2021, 04/14/2020, Additional history exists LIPID PANEL 12/24/2023 12/23/2022, 04/13, 05/09/2019, Additional history exists RSV Vaccine - Adults (1 - 1-dose 75+ series) 2024 LUNG CANCER SCREENING 10/25/2024 10/26/2023 , 11/23/2022, 06/29/2019, Additional history exists COVID-19 Vaccine ( season) 2024 12/12/2023, 01/24/2021, 05/20/2020, Additional history exists INFLUENZA VACCINE 12/11/2024 12/12/2023, , 01/06/2022, Additional history exists ZOSTER VACCINE (2 of 2) 12/11/2024 07/20/2017 (Decli octavia) Postponed from 09/14/2017 (Pending event) TDAP/TD VACCINES (3 - Td or Tdap) 01/29/2032 01/28/2022, 03/13/2014 Pneumococcal Vaccine 50+ Completed 018, 01/15/2017, 01/10/2016 HEPATITIS C SCREENING Completed 07/20/2017, HEMOGLOBIN A1C Discontinued 06/25/2019, 05/12, 03/27/2017 AAA SCREEN ONCE Completed 01/22/2024, 01/12, 01/27/2023, Additional history exists Medical Devices Implanted Type Area Duralumin Mechanic Device Identifier Shelf Expiration Date Model / Serial / Lot Bone Lordotic Asr [id number] - [id number] Implanted:Qty: 1 on 06/14/2018 by Elliott Briscoe MD at [facility] Implant N/A: Spine Cervical [employer] 05/24/2020 [id number] / / [id number] Bone Cerv Cornerstone Lasr [id number] - [id number] Implanted:Qty: 1 on 06/14/2018 by Elliott Briscoe MD at [facility] Implant N/A: Spine Cervical [employer] 12/21/2020 [id number] / / [id number] Plt Cerv Ant Zevo 2lvl 37mm - [id number] Implanted:Qty: 1 on 06/14/2018 by Elliott Briscoe MD at [facility] Implant N/A: Spine Cervical [employer] [id number] / / Scrw St Zevo 2thrd S/Tap 3.5x13mm - [id number] Implanted:Qty: 6 on 06/14/2018 by Elliott Briscoe MD at [facility] Implant N/A: Spine Cervical [employer] [id number] / / Kt Matrx Floseal Hemo Fast Prep 10ml - [id number] Implanted:Qty: 1 on 06/28/2019 by Elliott Briscoe MD at [facility] Implant N/A: Spine Thoracic [employer] [id number] / / Duralmatrix Duragen Pls 2x2in Ea/5 - [id number] Implanted:Qty: 1 on 06/28/2019 by Elliott Briscoe MD at [facility] Implant N/A: Spine Thoracic [employer] 10/10/2021 [id number] / / [id number] Cardiac Stent Description:X1 in 2015 Procedures Procedure Name Priority Date/Time Associated Diagnosis Comments SCANNED - IMAGING 10/30/2024 SCANNED - IMAGING 08/16/2024 CT CHEST LOW [...] to Health Maintenance Results * IMAGING SCANNED (10/30/2024) Only the most recent of2 resultswithin the time period is included. Anatomical Region Laterality Modality Radiographic Soledad ging [...] MD 11/24/2022 8:16 AM EDT Workstation ID: [id number] Narrative 11/24/2022 8:[address] CHEST [...] MD 11/24/2022 8:16 AM EDT Workstation ID: [id number] Robb LIRA IMG CT ORDERABLES Final Result * US aaa [...] F17.218-Nicotine dependence, cigarettes, with other nicotine-induced disorders; V44-Dbepimlba (primary) hypertension COMPARISON: NONE FINDINGS: Sonographic grayscale and color Doppler evaluation of the abdominal aorta demonstrates maximum dimension 2.4, 1.9 and 1.7 cm, proximal, mid and distal respectively. Unremarkable iliac arteries. Procedure Note Ricky Frey MD - 04/29/2020 EXAMINATION: US AAA SCREEN LIMITED- INDICATION: screening for AAA; Z13.6-Encounter for screening for cardiovascular disorders; F17.218-Nicotine dependence, cigarettes, with other nicotine-induced disorders; J31-Xsiygbpve (primary) hypertension COMPARISON: NONE FINDINGS: Sonographic grayscale and color Doppler evaluation of the abdominal aorta demonstrates maximum dimension 2.4, 1.9 and 1.7 cm, proximal, mid and distal respectively. Unremarkable iliac arteries. IMPRESSION: Nonaneurysmal abdominal aorta with maximum dimension 2.4 cm proximally. This report was finalized on 04/29/2020 11:11 AM by Ricky Frey. Robb LIRA [facility] US ORDERABLES Final Result * (ABNORMAL) Hemoglobin A1c (06/25/2019 1:31 PM EDT) Hemoglobin A1C 5.90(H) 4.80 - 5.60 % 06/25/2019 2:07 PM EDT [facility] Blood Venipuncture / Unknown 06/25/2019 1:31 PM EDT 06/25/2019 1:52 PM EDT Narrative [facility] - 06/25/2019 2:07 PM EDT Hemoglobin A1C Ranges: Increased Risk for Diabetes 5.7% to 6.4% Diabetes >= 6.5% Diabetic Goal < 7.0% Elilott Briscoe MD LAB BLOOD ORDERABLES Final Re sult [facility]
[address] [place] [address], * Hepatitis C Antibody (07/20/2017 2:53 PM EDT) Pathologist [facility] Hep C Virus Ab <0.1 0.0 - 0.9 s/co ratio [facility] Comment: Negative: < 0.8 Indeterminate: 0.8 - 0.9 Positive: > 0.9 The CDC recommends that a positive HCV antibody result be followed up with a HCV Nucleic Acid Amplification test (210056). Blood 07/20/2017 2:53 PM EDT 07/21/2017 Narrative [facility] - 07/22/2017 8:18 AM EDT Performed at: [address] [place] [address] [id number] Plastics Process Hand: Brian Gore PhD, Phone: [phone] us Robb [facility] LAB BLOOD ORDERABLES Final Res ult [facility] [address] [place] [address], [place] [phone] [facility] [address] [place] [address], [place] [phone] from Last 3 Months or Most Recently Relevant to Health Maintenance Insurance MEDICARE A & B Member Subscriber Plan / Payer (Ef fective 2014-Present) Name:Nathan Reid Member ID:[id number] Relation to Subscriber:Self Name:Nathan Reid Subscriber ID:[id number] Payer ID:[id number] Group ID:Not on file Type:Not on file Address: [address] Advance Directives * CPR (Attempt to Resuscitate) [...] pulse or is breathing): Full Care Teams Tool Maintenance Worker Relationship Specialty Start Date End Date Domenic Lua MD [address] [place] [address] PCP - General Family Medicine 12/28/23
--- OUTSIDE RECORDS SUMMARY | 2024-11-14 20:12 | XMS_ITS | Encounter Summary ---
Author Organization [facility] Address [address] [place] [address] Care Team Providers Care Supervisor Sunglasses Name Role Phone Domenic Lua MD Primary Care Provider [phone] Encounter Details Date Type Department Care Team (Latest Contact Info) Description 11/05/2024 Travel Social History Tobacco Use Types Packs/Day Years [...] on file documented as of this encounter Functional Status documented as of this encounter Plan of Treatment Upcoming Encounters Date Type Department Care Team (Late st Contact Info) Description 02/03/2025 4:00 PM EST Office Visit [facility] [address] [place] [address] Domenic Lua MD [address] [place] [place] [id number] documented as of this encounter Visit Diagnoses Not on filedocumented in this encounter Additional Health Concerns Assessment Noted Time PHQ-2 Depression Total Score: 1 04/02/20 24 11:22 AM EDT documented as of this encounter Care Teams Supervisor Sunglasses Relationship Specialty Start Date End Date Domenic Lua MD [address] [place] [address] PCP - General Family Medicine 12/28/23 documented as of this encounter
--- OUTSIDE RECORDS SUMMARY | 2024-11-14 20:12 | XMS_ITS | Clinical Summary ---
Author Organization [facility] Address [address] [place] [address] Care Team Providers Care Farm Supervisor Name Role Phone Billie Robb LIRA Primary Care Provider [phone] Allergies No known active allergies Medications albuterol [...] 1994 UKY-Zoster Vaccines (1 of 2) 08/29/1999 [id number] Vaccine (4 - season) 2023 01/24/2021, 05/20/2020, [...] age to complete this topic Insurance MEDICARE [facility] Care Teams Farm Supervisor Relationship Specialty Start Date End Date Robb Wise PA [address] [place] [address] PCP - General 05/25/23
--- OUTSIDE RECORDS SUMMARY | 2024-11-14 20:12 | XMS_ITS | Encounter Summary ---
Author Organization [facility] Address [address] [place] [address] Care Team Providers Care Real Estate Salesperson Name Role Phone Domenic Lua MD Primary Care Provider [phone] Encounter Details Date Type Department Care Team (Late Contact Info) Description 11/01/2024 Results Follow-Up [facility] [address] [facility] [place] [address] Domenic Lua MD [address] [facility] [address] Social History Tobacco Use Types [...] Description 02/03/2025 4:00 PM EST Office Visit [facility] [address] [facility] [place] [address] Domenic Lua MD [address] [place] [address] documented as of this encounter Visit Diagnoses Not on filedocumented in this encounter Additional Health Concerns Assessment Noted Time PHQ-2 Depression Total Score: 1 06/13/19 24 11:22 AM EDT documented as of this encounter Care Teams Real Estate Salesperson Relationship Specialty Start Date End Date Domenic Lua MD [address] [place] [address] PCP - General Family Medicine 12/28/23 documented as of this encounter
--- OUTSIDE RECORDS SUMMARY | 2024-11-14 20:12 | XMS_ITS | Encounter Summary ---
Author Organization [facility] Address [address] [place] [id number] Care Team Providers Care Joint Creaser Name Role Phone Domenic Lua MD Primary Care Provider [phone] Encounter Details Date Type Department Care Team (Late Contact Info) Description 08/19/2024 Results Follow-Up [facility] [address] [facility] [place] [address] Domenic Lua MD [address] [facility] [place] [address] Social History Tobacco Use Types [...] Description 02/03/2025 4:00 PM EST Office Visit [facility] [address] [facility] [place] [address] Domenic Lua MD [address] [place] [address] documented as of this encounter Visit Diagnoses Not on filedocumented in this encounter Additional Health Concerns Assessment Noted Time PHQ-2 Depression Total Score: 1 06/13/19 24 11:22 AM EDT documented as of this encounter Care Teams Joint Creaser Relationship Specialty Start Date End Date Domenic Lua MD [address] [place] [address] PCP - General Family Medicine 12/28/23 documented as of this encounter
--- OUTSIDE RECORDS SUMMARY | 2024-11-14 20:12 | XMS_ITS | Encounter Summary ---
Author Organization [facility] Address [address] [place] [id number] Care Team Providers Care Engineering Model Maker Name Role Phone Domenic Lua MD Primary Care Provider [phone] Reason for Visit * Reason Comments Med Refill Encounter Details Date Type Department Care Team (Late st Contact Info) Description 10/08/2024 Refill [facility] [address] [place] [address] Robb Wise PA [address] [place] [address] Insomnia due to medical condition [...] Description 02/03/2025 4:00 PM EST Office Visit [facility] [address] [place] [address] Domenic Lua MD [address] [place] [address] documented as of this encounter Visit Diagnoses Diagnosis Insomnia due to medical condition Organic insomnia, unspecified documented in this encounter Additional Health Concerns Assessment Noted Time PHQ-2 Depression Total Score: 1 06/13/19 24 11:22 AM EDT documented as of this encounter Care Teams Engineering Model Maker Relationship Specialty Start Date End Date Domenic Lua MD [address] [place] [address] PCP - General Family Medicine 12/28/23 documented as of this encounter
--- NOTE | 2024-11-14 20:15 | [facility].EDGENADL ---
Discharge Plan Disposition Patient Disposition: Admitted Prescriptions Prescriptions: No Action Stiolto Respimat 2.5-2.5 mcg/actuation mist 2 puff inhalation DAILY 90 Days Qty: 4 2RF ipratropium-albuterol 0.5 mg-3 mg(2.5 mg base)/3 mL solution for nebulization 3 ml inhalation QID PRN (Reason: shortness of breath or wheezing) 90 Days Qty: 270 3RF enoxaparin [Lovenox] 120 mg/0.8 mL syringe 120 mg SQ Q12H 6 Days Qty: 9.6 0RF trazodone 50 mg tablet 50 mg PO QHS PRN (Reason: Insomnia) warfarin 5 mg tablet PO levothyroxine [Synthroid] 125 mcg tablet 125 mcg PO DAILY Qty: 90 4RF warfarin 4 mg tablet See Rx Instructions .ROUTE .COMPLEX Qty: 90 3RF Dose Instruction: TAKE ONE TABLET BY MOUTH ONCE A DAY OR DIRECTED Rx Instructions: TAKE ONE TABLET BY MOUTH ONCE A DAY OR DIRECTED torsemide 100 mg tablet 100 mg PO DAILY Qty: 30 11RF losartan 100 mg tablet See Rx Instructions .ROUTE .COMPLEX Qty: 30 11RF Dose Instruction: TAKE ONE TABLET BY MOUTH ONCE A DAY Rx Instructions: TAKE ONE TABLET BY MOUTH ONCE A DAY warfarin 4 mg tablet 5 mg PO DAILY Qty: 60 11RF Rx Instructions: TAKE ONE TABLET BY MOUTH ONCE A DAY OR DIRECTED 5MG ON MONDAY potassium chloride 20 mEq tablet,ER particles/crystals See Rx Instructions .ROUTE .COMPLEX Qty: 360 3RF Dose Instruction: TAKE ONE TABLET BY MOUTH FOUR TIMES A DAY Rx Instructions: TAKE ONE TABLET BY MOUTH FOUR TIMES A DAY clopidogrel 75 mg tablet See Rx Instructions .ROUTE .COMPLEX Qty: 90 3RF Dose Instruction: TAKE ONE TABLET BY MOUTH ONCE A DAY Rx Instructions: TAKE ONE TABLET BY MOUTH ONCE A DAY Jardiance 10 mg tablet 10 mg PO DAILY Qty: 30 6RF ropinirole 2 mg tablet See Rx Instructions .ROUTE .COMPLEX Qty: 180 3RF Dose Instruction: TAKE ONE TABLET BY MOUTH 2 TIMES A DAY Rx Instructions: TAKE ONE TABLET BY MOUTH 2 TIMES A DAY atorvastatin 40 mg tablet 40 mg PO DAILY 30 Days Qty: 30 6RF levothyroxine [Synthroid] 137 mcg tablet 137 mcg PO DAILY Qty: 90 3RF digoxin 125 mcg (0.125 mg) tablet See Rx Instructions .ROUTE .COMPLEX Qty: 90 3RF Dose Instruction: TAKE ONE TABLET BY MOUTH ONCE A DAY Rx Instructions: TAKE ONE TABLET BY MOUTH ONCE A DAY albuterol sulfate 8.5 GM HFA aerosol inhaler 2 puff IH Q4HP PRN (Reason: Wheezing) Qty: 1 0RF lidocaine 4 % adhesive patch,medicated 1 patch topical DAILY Qty: 5 0RF Rx Instructions: may leave on for up to 12 hrs hydrocodone-acetaminophen 5-325 mg tablet 1 tab PO Q6H PRN (Reason: pain) 3 Days Qty: 12 0RF prednisone 50 mg tablet 50 mg PO DAILY 5 Days Qty: 5 0RF Rx Instructions: Please begin 1 day after ED visit cyclobenzaprine 5 mg tablet 5 mg PO TID PRN (Reason: muscle spasm) 5 Days Qty: 15 0RF gabapentin 300 mg capsule 300 mg PO TID (DME) walker Misc See Rx Instructions .Route Qty: 1 0RF Rx Instructions: As directed Referrals Follow up/Referrals: Provider,Referral, MD [Primary Care Provider, Medical] - See instructions Clinical Impressions Clinical Impression: Cellulitis of left leg Print Language Print Language: Albanian Discharge ED Provider: Paolo Raymundo General Adult HPI <PANKAJ Yan - Last Filed: 11/14/24 21:50> General Chief complaint: Extremity Injury, Lower Stated complaint: swelling in lower extremities Time Seen by Provider: 11/14/24 19:47 Mode of Arrival: Wheelchair Source of Information: Patient and Spouse Description of Symptoms (Recalled from ER Triage Doc. by RN): Pt presents to the ED for evaluation of L lower leg. PT has hx of CHF. PT stated he has been compliant with meds History of Present Illness HPI narrative: 74-year-old male presents emergency department with left lower extremity swelling, and then just noticed tonight, patient denies any fever chills chest pain shortness of breath outside of his normal, patient denies any abdominal pain nausea vomiting constipation diarrhea no urinary type symptomatology, however at the bedside states the patient's urine smelled foul , patient is a current everyday smoker, denies any alcohol or drug use, other past medical history is consistent with PAD, CAD status post multiple stent placements, COPD with as needed O2 therapy at home, thoracic aortic aneurysm, dated the patient history of liver mass, hyperlipidemia, hypertension, restless leg syndrome, hypothyroidism status post total thyroidectomy, atrial fibrillation on anticoagulation therapy with warfarin. Initial triage vitals are unremarkable. Please note that above description of symptoms, in this electronic medical record under categorization of recalled from ER triage doctor by RN are reflective of an initial nursing assessment, however, is not reflective of my full history and physical exam that was personally taken and clarified. Consequentially, this preceding description of symptoms, which may include the patient's categorized chief complaint in the EMR, do not reflect my personal clinical impression, and the ultimate description of history of present illness and patient stated complaints should be deferred to this section of the note. Unless stated otherwise or congruent with this section of the note, additional signs, symptoms, or incongruence should be interpreted as inaccurate with my clinical impression. Onset (ago): hour(s) Related Data Home Medications ?Medication ?Instructions ?Recorded ?Confirmed trazodone 50 mg tablet 50 mg PO QHS PRN Insomnia 04/11/17 08/01/24 gabapentin 300 mg capsule 300 mg PO TID neuropathy 04/23/22 08/01/24 warfarin 5 mg tablet mg PO 05/02/24 08/01/24 Previous Rx's ?Medication ?Instructions ?Recorded albuterol sulfate 90 mcg/actuation 2 puff inhalation Q4HP PRN 05/09/21 aerosol inhaler Wheezing #1 ea levothyroxine 125 mcg tablet 125 mcg PO DAILY hypothyroidism 06/01/22 (Synthroid) #90 tabs walker #1 ea 10/23/22 ipratropium 0.5 mg-albuterol 3 mg 3 ml inhalation QID PRN shortness 07/20/23 (2.5 mg base)/3 mL nebulization of breath or wheezing 90 days #270 soln mL tiotropium 2.5 mcg-olodaterol 2.5 2 puff inhalation DAILY 90 days #4 07/20/23 mcg/actuation mist for inhalation grams (Stiolto Respimat) warfarin 4 mg tablet See Rx Instructions .Route 10/24/23 .COMPLEX #90 tabs losartan 100 mg tablet See Rx Instructions .Route 02/26/24 .COMPLEX #30 tabs torsemide 100 mg tablet 100 mg PO DAILY #30 tabs 02/26/24 warfarin 4 mg tablet 5 mg (1.25 x 4 mg) PO DAILY afib 03/19/24 #60 tabs potassium chloride 20 mEq See Rx Instructions .Route 04/01/24 tablet,extended release(part/cryst) .COMPLEX #360 tabs clopidogrel 75 mg tablet See Rx Instructions .Route 04/30/24 .COMPLEX #90 tabs enoxaparin 120 mg/0.8 mL 120 mg (0.8 mL) SQ Q12H 05/30/24 subcutaneous syringe (Lovenox) perioperative a/c 6 days #9.6 mL empagliflozin 10 mg tablet 10 mg PO DAILY #30 tabs 07/29/24 (Jardiance) ropinirole 2 mg tablet See Rx Instructions .Route 08/19/24 .COMPLEX #180 tabs atorvastatin 40 mg tablet 40 mg PO DAILY 30 days #30 tabs 08/22/24 levothyroxine 137 mcg tablet 137 mcg PO DAILY #90 tabs 09/03/24 (Synthroid) digoxin 125 mcg (0.125 mg) tablet See Rx Instructions .Route 09/09/24 .COMPLEX #90 tabs cyclobenzaprine 5 mg tablet 5 mg PO TID PRN muscle spasm 5 10/30/24 days #15 tabs hydrocodone 5 mg-acetaminophen 325 1 tab PO Q6H PRN pain 3 days #12 10/30/24 mg tablet tabs lidocaine 4 % topical patch 1 patch topical DAILY #5 ea 10/30/24 prednisone 50 mg tablet 50 mg PO DAILY 5 days #5 tabs 10/30/24 Allergies Allergy/AdvReac Type Severity Reaction Status Date / Time No Known Allergies Allergy Verified 08/01/24 11:52 [facility] <PANKAJ Yan - Last Filed: 11/14/24 21:50> [facility] Disclaimer: The information contained in this section may have been updated after the patient was seen, as this information can be updated by other users. Medical History COPD (chronic obstructive pulmonary disease) Depression Edema Peripheral vascular disease of lower extremity Pulmonary emphysema Smoking greater than 30 pack years BOB (obstructive sleep apnea) Daytime somnolence Dyspnea Gallstones Pericardial effusion Hypothyroidism Right carotid bruit Cardiomyopathy SOB (shortness of breath) Tobacco dependence syndrome Hypertensive heart disease Coronary arteriosclerosis Atrial fibrillation Surgical History History of colonoscopy H/O eye surgery LEFT EYE H/O thyroidectomy Previous back surgery Stented coronary artery Family History Other Cancer Hypertension Thyroid disorder Social History Smoking Status: Current every day smoker tobacco type: cigarettes packs per day: 1 alcohol intake: current alcohol intake frequency: holidays/special occasions only substance use type: denies use current occupational status: retired Travel in the last 8 weeks?: None housing: house Have you lived/traveled outside [place] in past 30 days?: No Contact w/someone who lives/traveled outside [place] past 30 days?: No Exposure to someone with infectious disease in past 14 days?: No Do you have a fever (greater than 100.4 F or 38 C)?: No Have you tested positive for COVID-19?: No Exposed to someone with COVID-19 in past 14 days?: No Do you have a sore throat?: No Do you have a cough?: No Do you have any weakness?: No Do you have any diarrhea?: No Are you experiencing any unusual bleeding?: No Do you have any muscle aches/pain?: No Do you have any abdominal pain?: No Are you experiencing loss of taste or smell?: No Other Medical History Have you received the Flu Vaccine for this season: No Have you received the Pneumonia Vaccine: Yes <PANKAJ Yan - Last Filed: 11/14/24 21:50> ROS Obtained: Yes All systems reviewed & no additional complaints except as documented Physical Exam <PANKAJ Yan - Last Filed: 11/14/24 21:50> General General appearance: alert and in no apparent distress Head Head exam: atraumatic and normocephalic Eye Eye exam: Present PERRL and EOMI ENT ENT exam: Present mucous membranes moist Neck Neck exam: Present normal inspection Chest Chest inspection: Present normal inspection and symmetric chest wall rise Respiratory Respiratory exam: Present normal lung sounds bilaterally; Absent respiratory distress, wheezes or stridor Cardiovascular Cardiovascular exam: Present regular rate and normal rhythm Abdominal Exam Abdominal exam: Present soft; Absent tenderness, guarding, rebound or rigidity Extremities Exam Extremities exam: Present normal inspection Neurological Exam Neurological exam: Present alert and oriented X3 Psychiatric Psychiatric exam: Present normal affect Skin Skin exam: Present warm, dry, erythema and other (Lower extremity 3+ pitting edema, with some erythema noted to the pretibial region, as well as some active serous nonpurulent drainage) Medical Decision Making <PANKAJ Yan - Last Filed: 11/14/24 21:50> Medical Records Medical records reviewed: Yes I reviewed the patient's medical records. Screening: Per USPSTF and CDC recommendations, given the prevalence of disease in our region, it is our hospital?s policy to screen for HIV and viral Hepatitis for all patients aged 18 and over and those with ongoing risk factors. Cipriano Inquiry Pt receiving controlled substance: No Cipriano was queried for this patient: No Vital Signs: 11/14/24 19:45 11/14/24 20:31 11/14/24 20:32 Temperature 98.0 F Temperature Source Oral Pulse Rate 77 63 Pulse Rate [Right] 74 Respiratory Rate 16 16 Blood Pressure 138/75 138/75 Blood Pressure [Right Arm] 103/58 L Blood Pressure Mean 86 Blood Pressure Mean [Right Arm] 73 02 Sat by Pulse Oximetry 100 96 99 Oxygen Delivery Method Room Air Room Air 11/14/24 21:01 11/14/24 21:27 11/14/24 21:53 Temperature Temperature Source Pulse Rate 76 94 H 60 Pulse Rate [Right] Respiratory Rate 16 Blood Pressure 133/62 133/62 133/54 L Blood Pressure [Right Arm] Blood Pressure Mean 85 Blood Pressure Mean [Right Arm] 02 Sat by Pulse Oximetry 95 94 L 96 Oxygen Delivery Method Room Air 11/14/24 22:00 11/14/24 22:30 11/14/24 23:09 Temperature Temperature Source Pulse Rate 84 63 61 Pulse Rate [Right] Respiratory Rate 16 16 Blood Pressure 133/54 L 139/67 133/67 Blood Pressure [Right Arm] Blood Pressure Mean Blood Pressure Mean [Right Arm] 02 Sat by Pulse Oximetry 100 95 94 L Oxygen Delivery Method Room Air Room Air Lab Data Lab results reviewed: Yes I reviewed the patient's lab results. Lab Results 11/14/24 19:42: WBC 14.0 H, RBC 3.70 L, Hgb 10.9 L, Hct 34.0 L, MCV 91.9, MCH 29.5, MCHC 32.1, RDW 16.8, Plt Count 274, MPV 10.5 H, Neut % (Auto) 73.3, Lymph % (Auto) 15.9, [place] % (Auto) 6.8, Eos % (Auto) 1.6, Baso % (Auto) 0.6, Neut # (Auto) 10.2 H, Lymph # (Auto) 2.2, [place] # (Auto) 1.0, Eos # (Auto) 0.2, Baso # (Auto) 0.1, PT 21.6 H, INR 2.05 H, APTT 36.3 H, Sodium 140, Potassium 4.2, Chloride 100, Carbon Dioxide 29, Anion Gap 15.2 H, BUN 20, Creatinine 0.90, Estimated Creat Clear 104, Estimated GFR 82, Est GFR ( Amer) 100, Glucose 99, Calcium 8.4, Magnesium 2.1, Total Bilirubin 0.9, AST 34, ALT 27, Alkaline Phosphatase 78, Troponin I 0.01, NT-Pro-B Natriuret Pep 586 H, Total Protein 7.4, Albumin 4.2, Globulin 3.2, Albumin/Globulin Ratio 1.3, HCV Ab LIDIA w/Rflx PCR Qn Negative, HIV Ag/Ab Combo Qual Negative 11/14/24 20:58: Urine Color Yellow, Urine Appearance Clear, Urine pH 6.0, Ur Specific [place] 1.010, Urine Protein Negative, Urine Glucose (UA) 3+, Urine Ketones Negative, Urine Blood Negative, Urine Nitrate Negative, Urine Bilirubin Negative, Urine Urobilinogen 0.2, Ur Leukocyte Esterase Negative, Urine RBC None, Urine WBC Occasional, Ur Squamous Epith Cells None, Urine Bacteria None 11/14/24 19:42 11/14/24 19:42 Orders (Tests/Meds): ED MEDICATIONS Generic Name Dose Route Start Last Admin Trade Name Freq PRN Reason Stop Dose Admin Acetaminophen 650 mg 11/14/24 22:47 Acetaminophen 325mg Tab PO 12/14/24 22:46 Q4HP PRN Fever or Mild Pain (1-3) Hydrocodone Bitart/Acetaminophen 1 tab 11/14/24 22:47 Hydrocodone/Apap 5/325 Mg Tablet PO 12/14/24 22:46 Q4HP PRN Mild to Moderate Pain (1-6) Al Hydrox/Mg Hydrox/Simethicone 30 ml 11/14/24 22:47 Aluminum/Magnesium/Simethicone 30ml Udc PO 12/14/24 22:46 QIDP PRN Dyspepsia Vancomycin HCl 2,250 mg/ 250 mls @ 125 mls/hr 11/14/24 23:00 11/14/24 23:06 Sodium Chloride IV 11/15/24 00:59 125 mls/hr ONCE ONE Administration Cefepime HCl 1 gm/ Sodium 50 mls @ 100 mls/hr 11/14/24 23:00 Chloride IV 11/24/24 22:59 Q12H MARGARET Miscellaneous 1 each 11/14/24 23:00 Vancomycin Consult Request NOTAPPLIC 12/14/24 22:59 CONSULT PHARMACY [facility] Ondansetron HCl 4 mg 11/14/24 22:47 Ondansetron 4mg/2ml Vial IV 12/14/24 22:46 Q8HP PRN Nausea Sodium Chloride 10 ml 11/14/24 21:45 11/14/24 21:46 Sodium Chloride 0.9% 10ml Syr (Rad Only) IV 12/14/24 21:44 10 ml NEEDED PRN Administration Maintain IV Site Discontinued Medications Generic Name Dose Route Start Last Admin Trade Name Freq PRN Reason Stop Dose Admin Iopamidol 120 ml 11/14/24 21:45 11/14/24 21:46 Iopamidol-370 (76%);100ml Bottle IV 11/14/24 21:46 120 ml ONCE ONE Administration Sodium Chloride 100 ml 11/14/24 21:45 11/14/24 21:46 0.9 % Sodium Chloride 50 Ml Vial IV 11/14/24 21:46 100 ml ONCE ONE Administration Trimethoprim/Sulfamethoxazole 1 each 11/14/24 21:49 11/14/24 21:56 Sulfa/Trimethoprim 1 Tablet PO 11/14/24 21:50 1 each ONCE ONE Administration ORDERS Category Date Time Status CT angio abdomen/femoral Stat Cat Scan 11/14/24 21:05 Completed POCUS Point of Care (ER Only) Stat Exams 11/14/24 21:31 Completed US extremity LT limited Stat Exams 11/15/24 07:47 Ordered XR chest portable Stat Exams 11/14/24 20:23 Completed Basic Metabolic Panel AMLAB Lab 11/15/24 06:00 Ordered Complete Blood Count Auto Diff AMLAB Lab 11/15/24 06:00 Ordered Complete Blood Count Auto Diff Stat Lab 11/14/24 19:42 Completed Comprehensive Metabolic Panel Stat Lab 11/14/24 19:42 Completed HIV Combo Stat Lab 11/14/24 19:42 Completed Hepatitis C Ab Qual. W/ RFX Stat Lab 11/14/24 19:42 Completed Magnesium Stat Lab 11/14/24 19:42 Completed NT Pro Brain Natriuretic Pep. Stat Lab 11/14/24 19:42 Completed PT INR [Prothrombin Time INR] Stat Lab 11/14/24 19:42 Completed PTT [Activated Partial Thrombo Time] Stat Lab 11/14/24 19:42 Completed Troponin I Q3H Lab 11/14/24 23:30 Ordered Troponin I Q3H Lab 11/15/24 02:30 Ordered Troponin I Stat Lab 11/14/24 19:42 Completed Urinalysis and Microscopic Stat Lab 11/14/24 20:58 Completed Blood Culture Stat Micro 11/14/24 22:55 Received Medical Decision Narrative: 74-year-old male presents to the emergency department with left lower extremity swelling, for last 24 hours, differential diagnose include but not limited to, acute CHF exacerbation, dependent edema, cellulitis, chronic venous stasis dermatitis/venous insufficiency, lymphedema among others Will obtain basic laboratory studies, EKG, chest x-ray, magnesium level proBNP PT/INR/PTT troponin UA. CBC notable for mild leukocytosis of 14, erythrocyte opinion at 3.7, hemoglobin is decreased to 10.9 and hematocrit is 34, comparing the patient's previous patient does seem to have some degree of anemia at baseline PT is elevated at 21.6, INR is 2.05, PTT is 36.3 CMP unremarkable Troponin is 0.01, proBNP is mildly elevated 586. Obtain CTA of the left lower extremity for further evaluation/characterization. UA is notable for negative nitrites negative leukocyte esterase, negative ketonuria, 3+ glucose urea, otherwise unremarkable. I will give the patient Bactrim DS p.o. here in the emergency department for cellulitis. I discussed this patient's case with the attending physician , at shift change he will be assuming admitted the patient's care/workup, disposition is pending CTA of the left lower extremity, as well as POCUS bedside ultrasound rule out DVT <Paolo Raymundo MD - Last Filed: 11/14/24 23:29> Vital Signs: 11/14/24 19:45 11/14/24 20:31 11/14/24 20:32 Temperature 98.0 F Temperature Source Oral Pulse Rate 77 63 Pulse Rate [Right] 74 Respiratory Rate 16 16 Blood Pressure 138/75 138/75 Blood Pressure [Right Arm] 103/58 L Blood Pressure Mean 86 Blood Pressure Mean [Right Arm] 73 02 Sat by Pulse Oximetry 100 96 99 Oxygen Delivery Method Room Air Room Air 11/14/24 21:01 11/14/24 21:27 11/14/24 21:53 Temperature Temperature Source Pulse Rate 76 94 H 60 Pulse Rate [Right] Respiratory Rate 16 Blood Pressure 133/62 133/62 133/54 L Blood Pressure [Right Arm] Blood Pressure Mean 85 Blood Pressure Mean [Right Arm] 02 Sat by Pulse Oximetry 95 94 L 96 Oxygen Delivery Method Room Air 11/14/24 22:00 11/14/24 22:30 11/14/24 23:09 Temperature Temperature Source Pulse Rate 84 63 61 Pulse Rate [Right] Respiratory Rate 16 16 Blood Pressure 133/54 L 139/67 133/67 Blood Pressure [Right Arm] Blood Pressure Mean Blood Pressure Mean [Right Arm] 02 Sat by Pulse Oximetry 100 95 94 L Oxygen Delivery Method Room Air Room Air Lab Data Lab Results 11/14/24 19:42: WBC 14.0 H, RBC 3.70 L, Hgb 10.9 L, Hct 34.0 L, MCV 91.9, MCH 29.5, MCHC 32.1, RDW 16.8, Plt Count 274, MPV 10.5 H, Neut % (Auto) 73.3, Lymph % (Auto) 15.9, [place] % (Auto) 6.8, Eos % (Auto) 1.6, Baso % (Auto) 0.6, Neut # (Auto) 10.2 H, Lymph # (Auto) 2.2, [place] # (Auto) 1.0, Eos # (Auto) 0.2, Baso # (Auto) 0.1, PT 21.6 H, INR 2.05 H, APTT 36.3 H, Sodium 140, Potassium 4.2, Chloride 100, Carbon Dioxide 29, Anion Gap 15.2 H, BUN 20, Creatinine 0.90, Estimated Creat Clear 104, Estimated GFR 82, Est GFR ( Amer) 100, Glucose 99, Calcium 8.4, Magnesium 2.1, Total Bilirubin 0.9, AST 34, ALT 27, Alkaline Phosphatase 78, Troponin I 0.01, NT-Pro-B Natriuret Pep 586 H, Total Protein 7.4, Albumin 4.2, Globulin 3.2, Albumin/Globulin Ratio 1.3, HCV Ab LIDIA w/Rflx PCR Qn Negative, HIV Ag/Ab Combo Qual Negative 11/14/24 20:58: Urine Color Yellow, Urine Appearance Clear, Urine pH 6.0, Ur Specific [place] 1.010, Urine Protein Negative, Urine Glucose (UA) 3+, Urine Ketones Negative, Urine Blood Negative, Urine Nitrate Negative, Urine Bilirubin Negative, Urine Urobilinogen 0.2, Ur Leukocyte Esterase Negative, Urine RBC None, Urine WBC Occasional, Ur Squamous Epith Cells None, Urine Bacteria None Orders (Tests/Meds): ED MEDICATIONS Generic Name Dose Route Start Last Admin Trade Name Freq PRN Reason Stop Dose Admin Acetaminophen 650 mg 11/14/24 22:47 Acetaminophen 325mg Tab PO 12/14/24 22:46 Q4HP PRN Fever or Mild Pain (1-3) Hydrocodone Bitart/Acetaminophen 1 tab 11/14/24 22:47 Hydrocodone/Apap 5/325 Mg Tablet PO 12/14/24 22:46 Q4HP PRN Mild to Moderate Pain (1-6) Al Hydrox/Mg Hydrox/Simethicone 30 ml 11/14/24 22:47 Aluminum/Magnesium/Simethicone 30ml Udc PO 12/14/24 22:46 QIDP PRN Dyspepsia Vancomycin HCl 2,250 mg/ 250 mls @ 125 mls/hr 11/14/24 23:00 11/14/24 23:06 Sodium Chloride IV 11/15/24 00:59 125 mls/hr ONCE ONE Administration Cefepime HCl 1 gm/ Sodium 50 mls @ 100 mls/hr 11/14/24 23:00 Chloride IV 11/24/24 22:59 Q12H [facility] Miscellaneous 1 each 11/14/24 23:00 Vancomycin Consult Request NOTAPPLIC 12/14/24 22:59 CONSULT PHARMACY [facility] Ondansetron HCl 4 mg 11/14/24 22:47 Ondansetron 4mg/2ml Vial IV 12/14/24 22:46 Q8HP PRN Nausea Sodium Chloride 10 ml 11/14/24 21:45 11/14/24 21:46 Sodium Chloride 0.9% 10ml Syr (Rad Only) IV 12/14/24 21:44 10 ml NEEDED PRN Administration Maintain IV Site Discontinued Medications Generic Name Dose Route Start Last Admin Trade Name Heena PRN Reason Stop Dose Admin Iopamidol 120 ml 11/14/24 21:45 11/14/24 21:46 Iopamidol-370 (76%);100ml Bottle IV 11/14/24 21:46 120 ml ONCE ONE Administration Sodium Chloride 100 ml 11/14/24 21:45 11/14/24 21:46 0.9 % Sodium Chloride 50 Ml Vial IV 11/14/24 21:46 100 ml ONCE ONE Administration Trimethoprim/Sulfamethoxazole 1 each 11/14/24 21:49 11/14/24 21:56 Sulfa/Trimethoprim 1 Tablet PO 11/14/24 21:50 1 each ONCE ONE Administration ORDERS Category Date Time Status CT angio abdomen/femoral Stat Cat Scan 11/14/24 21:05 Completed POCUS Point of Care (ER Only) Stat Exams 11/14/24 21:31 Completed US extremity LT limited Stat Exams 11/15/24 07:47 Ordered XR chest portable Stat Exams 11/14/24 20:23 Completed Basic Metabolic Panel AMLAB Lab 11/15/24 06:00 Ordered Complete Blood Count Auto Diff AMLAB Lab 11/15/24 06:00 Ordered Complete Blood Count Auto Diff Stat Lab 11/14/24 19:42 Completed Comprehensive Metabolic Panel Stat Lab 11/14/24 19:42 Completed HIV Combo Stat Lab 11/14/24 19:42 Completed Hepatitis C Ab Qual. W/ RFX Stat Lab 11/14/24 19:42 Completed Magnesium Stat Lab 11/14/24 19:42 Completed NT Pro Brain Natriuretic Pep. Stat Lab 11/14/24 19:42 Completed PT INR [Prothrombin Time INR] Stat Lab 11/14/24 19:42 Completed PTT [Activated Partial Thrombo Time] Stat Lab 11/14/24 19:42 Completed Troponin I Q3H Lab 11/14/24 23:30 Ordered Troponin I Q3H Lab 11/15/24 02:30 Ordered Troponin I Stat Lab 11/14/24 19:42 Completed Urinalysis and Microscopic Stat Lab 11/14/24 20:58 Completed Blood Culture Stat Micro 11/14/24 22:55 Received ECG Data Tracing #1: Independently interpreted by me rate is 58, rhythm is irregular, slow atrial fibrillation, QTc 425, no ST elevation in anatomical contiguous leads. Medical Decision Narrative: 74-year-old male presents to the emergency department with left lower extremity swelling, for last 24 hours, differential diagnose include but not limited to, acute CHF exacerbation, dependent edema, cellulitis, chronic venous stasis dermatitis/venous insufficiency, lymphedema among others Will obtain basic laboratory studies, EKG, chest x-ray, magnesium level proBNP PT/INR/PTT troponin UA. CBC notable for mild leukocytosis of 14, erythrocyte opinion at 3.7, hemoglobin is decreased to 10.9 and hematocrit is 34, comparing the patient's previous patient does seem to have some degree of anemia at baseline PT is elevated at 21.6, INR is 2.05, PTT is 36.3 CMP unremarkable Troponin is 0.01, proBNP is mildly elevated 586. Obtain CTA of the left lower extremity for further evaluation/characterization. UA is notable for negative nitrites negative leukocyte esterase, negative ketonuria, 3+ glucose urea, otherwise unremarkable. I will give the patient Bactrim DS p.o. here in the emergency department for cellulitis. I discussed this patient's case with the attending physician , at shift change he will be assuming admitted the patient's care/workup, disposition is pending CTA of the left lower extremity, as well as POCUS bedside ultrasound rule out DVT. Paolo Raymundo: Upon assumption of care patient is hemodynamically stable. CT imaging has incidental abdominal findings none of which are emergent including tiny gallstones moderate stenosis of the right renal artery. There is mild stenosis of the left SFA at 30%, there is diffuse atherosclerotic calcifications and probable moderate to high-grade stenosis throughout the infrapopliteal arteries with severe subcutaneous edema throughout the mid and lower leg extending into the ankle and foot with reactive lymph nodes in the left inguinal region concerning for left lower extremity cellulitis. Eopiu-ow-cjxy ultrasound at bedside shows no proximal DVT and he does not have any asymmetric swelling of his proximal thigh. He has dopplerable pulses and although he has narrow arteries in his leg I do not suspect that this is the problem given that he has a warm swollen foot and tib-fib with overlying erythema. I would suspect that if he had critical limb ischemia his foot will be cold and he would not have dopplerable pulses. Given asymmetric edema and erythema with cobblestoning on [id number] ultrasound my concern for soft tissue infection is high. He is also on anticoagulants which makes DVT less likely. Given the severity of the swelling and the fact that he has leukocytosis of 14 we will initiate patient on vancomycin. The case was discussed with hospital medicine they will admit the patient to their service for continued evaluation at this time. Procedure: Procedure performed was [id number] ultrasound. Using the linear probe the proximal left leg sequential compression ultrasound from the common femoral to the knee was performed. Technically difficult however no obvious proximal DVT identified. Using a linear probe of the distal leg cobblestoning without abscess over the area of erythema was identified. Images were saved to a permanent archive and were technically adequate. Patient tolerated procedure well there were no immediate complications. Critical Care <PANKAJ Yan - Last Filed: 11/14/24 21:50> Critical Care Time Critical Care Time: No
--- NOTE | 2024-11-14 20:23 | XR_ITS ---
PROCEDURE INFORMATION: Exam: XR Chest Exam date and time: 11/14/2024 8:44 PM Age: 74 years old Clinical indication: Shortness of breath; Additional info: SOA TECHNIQUE: Imaging protocol: Radiologic exam of the chest. Views: 1 view. COMPARISON: CT LUNG SCREENING 08/16/2024 2:50 PM FINDINGS: Lungs: No acute infiltrates.. Pleural spaces: Unremarkable. No pleural effusion. No pneumothorax. Heart/Mediastinum: Mild enlargement of the cardiac silhouette. Bones/joints: Unremarkable. IMPRESSION: 1. Mild enlargement of the cardiac silhouette. 2. No acute infiltrates..
[2024-11-14 20:31] LABS: Hematocrit 34.0 % (42.0-52.0); Hemoglobin 10.9 g/dL (14.1-18.0); Immature Granulocytes % 1.8 %; Mean Corpuscular HGB Conc 32.1 g/dL (31.8-35.4); Mean Corpuscular Hemoglobin 29.5 pg (27.0-31.2); Mean Corpuscular Volume 91.9 fl (80-94); Nucleated Red Blood Cells % 0 %; Platelet Count 274 K/mm3 (142-424); Red Blood Count 3.70 M/mm3 (4.60-6.20); Red Cell Distribution Width-SD 56.6 fL; White Blood Count 14.0 K/mm3 (4.8-10.8)
--- NOTE | 2024-11-14 20:33 | PC.NURSE ---
Reminded PT of UA need. Urinal at bedside. PT has understanding
[2024-11-14 20:38] LABS: INR 2.05 (0.9-1.1); Prothrombin Time 21.6 seconds (10.1-12.5)
[2024-11-14 20:41] LABS: Activated Partial Thrombo Time 36.3 seconds (22.8-30.6); Magnesium 2.1 mg/dl (1.6-2.3)
[2024-11-14 20:42] LABS: Alanine Aminotransferase 27 U/L (12-78); Albumin Level 4.2 g/dl (3.5-5.0); Albumin/Globulin Ratio 1.3 (1.1-1.8); Alkaline Phosphatase 78 U/L (38-126); Anion Gap 15.2 mEq/L (5-15); Aspartate Amino Transferase 34 U/L (17-59); Bilirubin,Total 0.9 mg/dl (0.2-1.3); Blood Urea Nitrogen 20 mg/dl (9-20); Calcium 8.4 mg/dl (8.4-10.2); Carbon Dioxide 29 mmol/L (22.0-30.0); Chloride 100 mmol/L (98-107); Creatinine Clearance Estimated 104 mL/min (50-200); Creatinine,Serum 0.90 mg/dl (0.66-1.25); Estimated Glomerular Filt Rate 82 ml/min (>60); GFR (African American) 100 ML/MIN (>60); Globulin 3.2 g/dL (1.3-3.2); Glucose 99 mg/dl (74-100); Potassium 4.2 mmoL/L (3.5-5.1); Sodium 140 mmol/L (136-145); Total Protein,Serum 7.4 g/dl (6.3-8.2)
--- NOTE | 2024-11-14 20:42 | PC.NURSE ---
Dopplar used for pulse find on L foot, DP and PT marked with marker. Pulses noted to be weak.
[2024-11-14 20:54] LABS: NT Pro Brain Natriuretic Pep. 586 pg/mL (0-450)
[2024-11-14 20:55] LABS: Troponin I 0.01 ng/ml (0.00-0.034)
[2024-11-14 21:00] LABS: Microscopic, Urine URINE MICROSCOPIC (MICROSCOPIC)
--- NOTE | 2024-11-14 21:05 | CT_ITS ---
PROCEDURE INFORMATION: Exam: CTA Abdominal Aorta and Bilateral Lower Extremities (Run-off) With Contrast Exam date and time: 11/14/2024 9:35 PM Age: 74 years old Clinical indication: Discoloration or erythema; Lower extremity; Left; Additional info: Left lower extremity pain swelling, redness TECHNIQUE: Imaging protocol: Computed tomographic angiography of the of the abdominal aorta, pelvis and bilateral lower extremities with contrast. 3D rendering (Not supervised by radiologist): MIP and/or 3D reconstructed images were created by the technologist. Radiation optimization: All CT scans at this facility use at least one of these dose optimization techniques: automated exposure control; mA and/or kV adjustment per patient size (includes targeted exams where dose is matched to clinical indication); or iterative reconstruction. Contrast material: ISOVUE; Contrast volume: 120 ml; Contrast route: INTRAVENOUS (IV); COMPARISON: CT ABDOMEN W CON 07/22/2024 7:54 AM FINDINGS: Aorta: No aortic aneurysm. No aortic dissection. Celiac trunk and mesenteric arteries: No occlusion or significant stenosis. Renal arteries: Moderate stenosis at the origin of the right renal artery estimated at 60%. Right iliac arteries: No occlusion or significant stenosis. Right femoral/popliteal arteries: No occlusion or significant stenosis. Right infrapopliteal arteries: Diffuse atherosclerotic calcifications with probable moderate long segment stenosis within the right infrapopliteal arteries. Left iliac arteries: No occlusion or significant stenosis. Left femoral/popliteal arteries: Mild stenosis at the origin of the left SFA estimated at 30%. Moderate stenosis estimated at 50-60% within the distal left SFA. Moderate stenosis diffusely throughout the left popliteal artery estimated at 50-60%. Moderate stenosis near the origin of the left popliteal artery estimated at 40%. Left infrapopliteal arteries: Diffuse atherosclerotic calcifications and probable moderate to high-grade stenosis throughout the left infrapopliteal arteries. Liver: The liver appears within normal limits. Gallbladder and biliary ducts: Tiny gallstones noted. Pancreas: The pancreas is normal. Spleen: The spleen is normal. Adrenal glands: The adrenal glands appear within normal limits. Kidneys and ureters: The kidneys are normal. Stomach and bowel: The stomach appears within normal limits. No wall thickening or inflammatory change. Appendix: No evidence of appendicitis. Urinary bladder: The bladder appears within normal limits. No wall thickening. Reproductive: The prostate gland appears normal. Intraperitoneal space: No free air. No evidence for focal fluid collection or ascites. No evidence for omental thickening. Lymph nodes: Unremarkable. No pathologically enlarged lymph nodes are identified. There are some reactive lymph nodes within the left inguinal region that are prominent the largest measures 3 cm. Bones/joints: No acute fracture. No dislocation. Soft tissues: Severe subcutaneous edema throughout the mid and lower leg extending into the ankle and foot region. Raise possibility of left lower extremity cellulitis. IMPRESSION: 1. Tiny gallstones noted. 2. Moderate stenosis at the origin of the right renal artery estimated at 60%. 3. Mild stenosis at the origin of the left SFA estimated at 30%. 4. Moderate stenosis estimated at 50-60% within the distal left SFA. 5. Moderate stenosis diffusely throughout the left popliteal artery estimated at 50-60%. 6. Diffuse atherosclerotic calcifications and probable moderate to high-grade stenosis throughout the left infrapopliteal arteries. 7. Severe subcutaneous edema throughout the mid and lower leg extending into the ankle and foot region. There are some reactive lymph nodes within the left inguinal region that are prominent the largest measures 3 cm. Raise possibility of left lower extremity cellulitis. 8. Moderate stenosis near the origin of the left popliteal artery estimated at 40%. 9. Diffuse atherosclerotic calcifications with probable moderate long segment stenosis within the right infrapopliteal arteries.
[2024-11-14 21:06] LABS: Bilirubin,Urine Negative (Negative); Color,Urine YELLOW (Yellow); Glucose,Urine (UA) 3+ (Negative); Ketones,Urine Negative (Negative); Leukocyte Esterase,Urine Negative (Negative); PH,Urine 6.0 (5.0-8.5); Protein,Urine Negative (Negative); Specific Gravity, Urine 1.010 (1.005-1.030); Urobilinogen,Urine 0.2 EU/dl (0.2)
[2024-11-14 21:22] LABS: Hepatitis C Ab Qual. W/ RFX NEGATIVE (Negative)
[2024-11-14 21:38] LABS: WBC,Urine Occasional #/hpf (0-3)
[2024-11-14] MEDS: 0.9 % SODIUM CHLORIDE 50 ML VIAL 100 ML IV (21:46)
[2024-11-14] MEDS: IOPAMIDOL-370 (76%);100ML BOTTLE 120 ML IV (21:46)
[2024-11-14] MEDS: SODIUM CHLORIDE 0.9% 10ML SYR (RAD ONLY) 10 ML IV (21:46)
[2024-11-14] MEDS: SULFA/TRIMETHOPRIM 1 TABLET 1 EACH PO (21:56)
[2024-11-14] MEDS: VANCOMYCIN HCL 2,250 MG in 0.9 % SODIUM CHLORIDE 250 ML 125 MG IV (23:06)
--- NOTE | 2024-11-14 23:49 | PC.NURSE ---
Report called to GEOVANNA Bradley
--- NOTE | 2024-11-14 23:58 | PC.NURSE ---
[id number] Yes[address] AUSTIN called Report. Pt can come by w/c. CORRIE CLEMENS RN
[2024-11-15] VITALS: BP 134/81; PULSE 69; RESP 16; TEMP 36.5; O2SAT 98; BMI 34.9
[2024-11-15 00:17] VITALS: BP 133/67; PULSE 61; RESP 16; TEMP 37; O2SAT 94
[2024-11-15 00:35] LABS: Troponin I 0.02 ng/ml (0.00-0.034)
--- NOTE | 2024-11-15 00:46 | PC.NURSE ---
Patient arrived to floor via stretcher from ED at 00:18.
--- NOTE | 2024-11-15 00:49 | P.HP_ITS ---
<Statement entered by Jung King MD - 11/16/24 17:17> Personally evaluated the patient and agree with plan of care as outlined by the [employer]. History of Present Illness *Admission Date: 11/14/24 *Reason for visit:: Left lower extremity sweling *History of present illness: Mr. Reid is a 74-year-old male presents to the ER with complaints of left lower extremity swelling. Patient has past medical history of COPD, emphysema, obstructive sleep apnea, hypothyroidism, hypertension, coronary artery disease, atrial fibrillation, and peripheral vascular disease. Patient states he noticed that his left leg started swelling yesterday. He states that tonight he was putting on his shoes and they were all tight so he decided to come and get evaluated in the ER. He denies any pain to left lower extremity. Reports chronic shortness of breath due to COPD. Patient denies fever/chills, cough, congestion, runny nose, chest pain, abdominal pain, nausea, vomiting, diarrhea, constipation, headache, lightheadedness, dizziness, or syncope. Patient reports he smokes 1.5 packs of cigarettes per day. Drinks 4-5 beers per week. Denies any recreational drug use. [facility] Disclaimer: The information contained in this section may have been updated after the patient was seen, as this information can be updated by other users. Medical History COPD (chronic obstructive pulmonary disease) Depression Edema Peripheral vascular disease of lower extremity Pulmonary emphysema Smoking greater than 30 pack years BOB (obstructive sleep apnea) Daytime somnolence Dyspnea Gallstones Pericardial effusion Hypothyroidism Right carotid bruit Cardiomyopathy SOB (shortness of breath) Tobacco dependence syndrome Hypertensive heart disease Coronary arteriosclerosis Atrial fibrillation Surgical History History of colonoscopy H/O eye surgery LEFT EYE H/O thyroidectomy Previous back surgery Stented coronary artery Family History Other Cancer Hypertension Thyroid disorder Social History Smoking Status: Current every day smoker tobacco type: cigarettes packs per day: 1 alcohol intake: current alcohol intake frequency: holidays/special occasions only substance use type: denies use current occupational status: retired Travel in the last 8 weeks?: None housing: house Other Medical History Have you received the Flu Vaccine for this season: No Have you received the Pneumonia Vaccine: No Review of Systems Constitutional Constitutional: Denies chills, Denies fever(s) and Denies headache(s) ENT Ears, Nose, Mouth, and Throat: Denies dizziness and Denies headache(s) *Cardiovascular Cardiovascular: Denies chest pain, Reports dyspnea (Chronic), Denies lightheadedness and Denies syncope *Respiratory Respiratory: Denies cough and Reports dyspnea (Chronic) *Gastrointestinal Gastrointestinal: Denies constipation, Denies diarrhea, Denies nausea and Denies vomiting *Genitourinary Genitourinary: Reports system reviewed and no additional complaints, except as documented *Musculoskeletal Musculoskeletal: Reports system reviewed and no additional complaints, except as documented *Neurologic Neurologic: Denies dizziness, Denies headache(s) and Denies syncope Meds Home Medications and Allergies Home Medications ?Medication ?Instructions ?Recorded ?Confirmed ?Type trazodone 50 mg tablet 50 mg PO QHS PRN Insomnia 08/01/24 History albuterol sulfate 90 mcg/actuation 2 puff inhalation Q 4HP PRN 05/09/21 08/01/24 Rx aerosol inhaler Wheezing #1 ea gabapentin 300 mg capsule 300 mg PO TID neuropathy 02/0208/01/24 History levothyroxine 125 mcg tablet 125 mcg PO DAILY hypothyr oidism 06/01/22 08/01/24 Rx (Synthroid) #90 tabs walker #1 ea 10/23/22 08/01/24 Rx ipratropium 0.5 mg-albuterol 3 mg 3 ml inhalation QID PRN shortness 07/20/23 08/01/24 Rx (2.5 mg base)/3 mL nebulization of breath or wheezing 90 days #270 soln mL tiotropium 2.5 mcg-olodaterol 2.5 2 puff inhalation DA JOSEY 90 days #4 07/20/23 08/01/24 Rx mcg/actuation mist for inhalation grams (Stiolto Respimat) warfarin 4 mg tablet See Rx Instructions .Route 0 10/24/23 08/01/24 Rx .COMPLEX #90 tabs losartan 100 mg tablet See Rx Instructions .Route 1 04/28/23 08/01/24 Rx .COMPLEX #30 tabs torsemide 100 mg tablet 100 mg PO DAILY #30 tabs 08/01/24 Rx warfarin 4 mg tablet 5 mg (1.25 x 4 mg) PO DAILY afib 03/19/24 08/01/24 Rx #60 tabs potassium chloride 20 mEq See Rx Instructions .Route 0 04/01/24 08/01/24 Rx tablet,extended release(part/cryst) .COMPLEX #360 tabs clopidogrel 75 mg tablet See Rx Instructions .Route 0 04/30/24 08/01/24 Rx .COMPLEX #90 tabs warfarin 5 mg tablet mg PO 05/02/24 08/01/24 Hist ory enoxaparin 120 mg/0.8 mL 120 mg (0.8 mL) SQ Q12H 05/1208/01/24 Rx subcutaneous syringe (Lovenox) perioperative a/c 6 da ys #9.6 mL empagliflozin 10 mg tablet 10 mg PO DAILY #30 tabs 08/01/24 Rx (Jardiance) ropinirole 2 mg tablet See Rx Instructions .Route 0 08/19/24 Rx .COMPLEX #180 tabs atorvastatin 40 mg tablet 40 mg PO DAILY 30 days #30 t abs 08/22/24 Rx levothyroxine 137 mcg tablet 137 mcg PO DAILY #90 tabs 09/03/24 Rx (Synthroid) digoxin 125 mcg (0.125 mg) tablet See Rx Instructions .Route 09/09/24 Rx .COMPLEX #90 tabs cyclobenzaprine 5 mg tablet 5 mg PO TID PRN muscle spa sm 5 10/30/24 Rx days #15 tabs hydrocodone 5 mg-acetaminophen 325 1 tab PO Q6H PRN pa in 3 days #12 10/30/24 Rx mg tablet tabs lidocaine 4 % topical patch 1 patch topical DAILY #5 e a 10/30/24 Rx prednisone 50 mg tablet 50 mg PO DAILY 5 days #5 tab s 10/30/24 Rx New Prescriptions to Start Prescriptions: Allergies Allergy/AdvReac Type Severity Reaction Status Date / Time No Known Allergies Allergy Verified 08/01/24 11:52 Exam Data for Last 24 hours Vital signs and Labs for Last 24 Hours: Temp Pulse Resp BP Pulse Ox O2 Del Method 98.6 F 61 16 133/67 98 Room Air 11/15/24 00:17 11/15/24 00:17 11/15/24 00:17 11/15/24 00:17 11/15/24 00:00 11/15/24 00:17 Laboratory Results - last 24 hr 11/14/24 19:42: WBC 14.0 H, RBC 3.70 L, Hgb 10.9 L, Hct 34.0 L, MCV 91.9, MCH 29.5, MCHC 32.1, RDW 16.8, Plt Count 274, MPV 10.5 H, Neut % (Auto) 73.3, Lymph % (Auto) 15.9, [place] % (Auto) 6.8, Eos % (Auto) 1.6, Baso % (Auto) 0.6, Neut # (Auto) 10.2 H, Lymph # (Auto) 2.2, [place] # (Auto) 1.0, Eos # (Auto) 0.2, Baso # (Auto) 0.1, PT 21.6 H, INR 2.05 H, APTT 36.3 H, Sodium 140, Potassium 4.2, Chloride 100, Carbon Dioxide 29, Anion Gap 15.2 H, BUN 20, Creatinine 0.90, Estimated Creat Clear 104, Estimated GFR 82, Est GFR ( Amer) 100, Glucose 99, Calcium 8.4, Magnesium 2.1, Total Bilirubin 0.9, AST 34, ALT 27, Alkaline Phosphatase 78, Troponin I 0.01, NT-Pro-B Natriuret Pep 586 H, Total Protein 7.4, Albumin 4.2, Globulin 3.2, Albumin/Globulin Ratio 1.3, HCV Ab LIDIA w/Rflx PCR Qn Negative, HIV Ag/Ab Combo Qual Negative 11/14/24 20:58: Urine Color Yellow, Urine Appearance Clear, Urine pH 6.0, Ur Specific Doon 1.010, Urine Protein Negative, Urine Glucose (UA) 3+, Urine Ketones Negative, Urine Blood Negative, Urine Nitrate Negative, Urine Bilirubin Negative, Urine Urobilinogen 0.2, Ur Leukocyte Esterase Negative, Urine RBC None, Urine WBC Occasional, Ur Squamous Epith Cells None, Urine Bacteria None 11/14/24 23:55: Troponin I 0.02 I & O for Last 24 hours: Intake & Output 11/12/24 11/13/24 11/14/24 09/05/25 23:59 23:59 23:59 23:59 Weight 115.212 kg 113.262 kg *Routine HEENT Exam Head: Present normocephalic and atraumatic Eye: Present EOMI and PERRL (Right) ENT: Present mucous membranes dry *Routine Neck Exam Neck: Present supple and full ROM *Routine Respiratory Exam Respiratory: Present wheezes (Course), normal respiratory effort, able to speak in complete sentences and symmetric chest movement; Absent accessory muscle use, respiratory distress, rhonchi or crackles *Routine Cardiovascular Exam Cardiovascular: Present RRR, Normal S1 and Normal S2 *Routine Abdominal Exam Abdominal: Present soft, normoactive bowel sounds and obese; Absent tenderness *Routine Rectal Exam Rectal:: deferred *Routine Genitalia Exam Genitalia:: deferred *Routine Extremities Exam Extremities: Present edema (Left lower extremity, 2+ pitting) and full ROM; Absent pulses intact (Decreased pedal pulses) Comments: Left lower extremity edema, erythema, and clear to yellow drainage noted to left anterior hobbs *Routine Skin Exam Comments: Left lower extremity edema, erythema, and clear to yellow drainage noted to left anterior hobbs *Routine Neurological Exam Neurological: Present alert, oriented X3 and CN II-XII intact Assessment and Plan *Assessment and plan (1) Cellulitis of left leg: Status: Acute Category: Medical Code(s): L03.116 - Cellulitis of left lower limb Plan: Left lower extremity ultrasound pending to rule out DVT Cefepime 1 g twice daily Vancomycin pharmacy to dose WBC 14.0 Monitor CBC Abdominal CTA impression: Tiny gallstones noted. Moderate stenosis at the origin of the right renal artery estimated at 60%. Mild stenosis at the origin of the left SFA estimated at 30%. Moderate stenosis estimated at 50-60% within the distal left SFA. Moderate stenosis diffusely throughout the left popliteal artery estimated at 50-60%. Diffuse atherosclerotic calcifications and probable moderate to high-grade stenosis throughout the left infrapopliteal arteries. Severe subcutaneous edema throughout the mid and lower leg extending into the ankle and foot region. There are some reactive lymph nodes within the left inguinal region that are prominent the largest measures 3 cm. Raise possibility of left lower extremity cellulitis. Moderate stenosis near the origin of the left popliteal artery estimated at 40%. Diffuse atherosclerotic calcifications with probable moderate long segment stenosis within the right infrapopliteal arteries. (2) HTN (hypertension): Status: Chronic Qualifiers: Hypertension type: primary hypertension Qualified Code(s): I10 - Essential (primary) hypertension Category: Medical Code(s): I10 - Essential (primary) hypertension Plan: Continue antihypertensives when med rec is complete (3) HLD (hyperlipidemia): Status: Chronic Qualifiers: Hyperlipidemia type: mixed hyperlipidemia Qualified Code(s): E78.2 - Mixed hyperlipidemia Category: Medical Code(s): E78.5 - Hyperlipidemia, unspecified Plan: Continue atorvastatin when med rec is complete (4) Chronic obstructive lung disease: Status: Chronic Qualifiers: COPD type: unspecified COPD Qualified Code(s): J44.9 - Chronic obs tructive pulmonary disease, unspecified Category: Medical Code(s): J44.9 - Chronic obstructive pulmonary disease, unspecified Plan: Xopenex 0.63 mg 3 times daily as needed for shortness of breath Chest x-ray no acute infiltrates (5) Tobacco dependence syndrome: Status: Chronic Category: Medical Code(s): F17.200 - Nicotine dependence, unspecified, uncomplicated Plan: Patient declined nicotine patch Encouraged smoking cessation Plan Spoke with ER provider Rick, decision to admit based on patient's presentation of cellulitis to left lower extremity with elevated white count and need to rule out DVT.
[2024-11-15] MEDS: MELATONIN 5MG TABLET 5 MG PO (02:24)
[2024-11-15] MEDS: CEFEPIME HCL 1 GM in 0.9 % SODIUM CHLORIDE 50 ML IV (02:38)
[2024-11-15 03:30] LABS: Troponin I 0.01 ng/ml (0.00-0.034)
[2024-11-15 04:00] VITALS: BP 124/67; PULSE 62; RESP 16; TEMP 36.6; O2SAT 99; BMI 34.9
--- NOTE | 2024-11-15 06:03 | PC.NURSE ---
Pt was admitted overnight for observation. Pt came up on RA and when he sleeps he wears 3L NC. Pt's Left Lower extremity was weeping. Pt WBC was 14.0 On Admission. Pt has Expiratory and inspiratory wheezed and diminished in the Bases. Call light with in reach. CORRIE CLEMENS RN
[2024-11-15 06:18] LABS: Anion Gap 11.0 mEq/L (5-15); Blood Urea Nitrogen 17 mg/dl (9-20); Calcium 8.3 mg/dl (8.4-10.2); Carbon Dioxide 30 mmol/L (22.0-30.0); Chloride 102 mmol/L (98-107); Creatinine Clearance Estimated 102 mL/min (50-200); Creatinine,Serum 0.90 mg/dl (0.66-1.25); Estimated Glomerular Filt Rate 82 ml/min (>60); GFR (African American) 100 ML/MIN (>60); Glucose 87 mg/dl (74-100); Potassium 4.0 mmoL/L (3.5-5.1); Sodium 139 mmol/L (136-145)
[2024-11-15 06:33] LABS: Hematocrit 31.9 % (42.0-52.0); Immature Granulocytes % 1.5 %; Mean Corpuscular HGB Conc 30.7 g/dL (31.8-35.4); Mean Corpuscular Hemoglobin 28.6 pg (27.0-31.2); Mean Corpuscular Volume 93.0 fl (80-94); Nucleated Red Blood Cells % 0 %; Platelet Count 233 K/mm3 (142-424); Red Blood Count 3.43 M/mm3 (4.60-6.20); Red Cell Distribution Width-SD 57.0 fL; White Blood Count 14.4 K/mm3 (4.8-10.8)
[2024-11-15 06:53] LABS: Hemoglobin 10.0 g/dL (14.1-18.0)
[2024-11-15 07:39] VITALS: BP 129/83; PULSE 80; RESP 16; TEMP 36.6; O2SAT 96
--- NOTE | 2024-11-15 07:41 | EXP.PHA.CONS ---
Pharmacy Consult Date: 11/15/24 Time: 07:42 Referring provider: DR METCALF Reason for Consult:: VANCOMYCIN DOSING CONSULT Allergies Allergy/AdvReac Type Severity Reaction Status Date / Time No Known Allergies Allergy Verified 08/01/24 11:52 Home Medications ?Medication ?Instructions ?Recorded ?Confirmed ?Type trazodone 50 mg tablet 50 mg PO QHS PRN Insomnia 04/11/17 11/15/24 History gabapentin 300 mg capsule 300 mg PO TID neuropathy 04/23/22 11/15/24 History ipratropium 0.5 mg-albuterol 3 mg 3 ml inhalation QID PRN shortness 07/20/23 11/15/24 Rx (2.5 mg base)/3 mL nebulization of breath or wheezing 90 days #270 soln mL tiotropium 2.5 mcg-olodaterol 2.5 2 puff inhalation DAILY 90 days #4 07/20/23 11/15/24 Rx mcg/actuation mist for inhalation grams (Stiolto Respimat) torsemide 100 mg tablet 100 mg PO DAILY #30 tabs 02/26/24 11/15/24 Rx warfarin 5 mg tablet 5 mg PO DAILY 05/02/24 11/15/24 History empagliflozin 10 mg tablet 10 mg PO DAILY #30 tabs 07/29/24 11/15/24 Rx (Jardiance) atorvastatin 40 mg tablet 40 mg PO DAILY 30 days #30 tabs 08/22/24 11/15/24 Rx levothyroxine 137 mcg tablet 137 mcg PO DAILY #90 tabs 09/03/24 11/15/24 Rx (Synthroid) cyclobenzaprine 5 mg tablet 5 mg PO TID PRN muscle spasm 5 10/30/24 11/15/24 Rx days #15 tabs clopidogrel 75 mg tablet 75 mg PO DAILY 11/15/24 11/15/24 History digoxin 125 mcg (0.125 mg) tablet 125 mcg PO AM 11/15/24 11/15/24 History losartan 100 mg tablet 100 mg PO DAILY 11/15/24 11/15/24 History potassium chloride 20 mEq 40 meq PO BID 11/15/24 11/15/24 History tablet,extended release(part/cryst) ropinirole 2 mg tablet 2 mg PO BID 11/15/24 11/15/24 History warfarin 4 mg tablet 4 mg PO DAILY 11/15/24 11/15/24 History New Prescriptions to Start Prescriptions: Height: 1.8 m Weight: 113.262 kg Laboratory Results:: Laboratory Results - last 24 hr 11/14/24 19:42: WBC 14.0 H, RBC 3.70 L, Hgb 10.9 L, Hct 34.0 L, MCV 91.9, MCH 29.5, MCHC 32.1, RDW 16.8, Plt Count 274, MPV 10.5 H, Neut % (Auto) 73.3, Lymph % (Auto) 15.9, Harlan % (Auto) 6.8, Eos % (Auto) 1.6, Baso % (Auto) 0.6, Neut # (Auto) 10.2 H, Lymph # (Auto) 2.2, Harlan # (Auto) 1.0, Eos # (Auto) 0.2, Baso # (Auto) 0.1, PT 21.6 H, INR 2.05 H, APTT 36.3 H, Sodium 140, Potassium 4.2, Chloride 100, Carbon Dioxide 29, Anion Gap 15.2 H, BUN 20, Creatinine 0.90, Estimated Creat Clear 104, Estimated GFR 82, Est GFR ( Amer) 100, Glucose 99, Calcium 8.4, Magnesium 2.1, Total Bilirubin 0.9, AST 34, ALT 27, Alkaline Phosphatase 78, Troponin I 0.01, NT-Pro-B Natriuret Pep 586 H, Total Protein 7.4, Albumin 4.2, Globulin 3.2, Albumin/Globulin Ratio 1.3, HCV Ab LIDIA w/Rflx PCR Qn Negative, HIV Ag/Ab Combo Qual Negative 11/14/24 20:58: Urine Color Yellow, Urine Appearance Clear, Urine pH 6.0, Ur Specific Bells 1.010, Urine Protein Negative, Urine Glucose (UA) 3+, Urine Ketones Negative, Urine Blood Negative, Urine Nitrate Negative, Urine Bilirubin Negative, Urine Urobilinogen 0.2, Ur Leukocyte Esterase Negative, Urine RBC None, Urine WBC Occasional, Ur Squamous Epith Cells None, Urine Bacteria None 11/14/24 23:55: Troponin I 0.02 11/15/24 02:44: Troponin I 0.01 11/15/24 05:31: WBC 14.4 H, RBC 3.43 L, Hgb 10.0 L, Hct 31.9 L, MCV 93.0, MCH 28.6, MCHC 30.7 L, RDW 16.8, Plt Count 233, MPV 10.5 H, Neut % (Auto) 74.1, Lymph % (Auto) 14.7, Harlan % (Auto) 7.6, Eos % (Auto) 1.7, Baso % (Auto) 0.4, Neut # (Auto) 10.7 H, Lymph # (Auto) 2.1, Harlan # (Auto) 1.1 H, Eos # (Auto) 0.2, Baso # (Auto) 0.1, Sodium 139, Potassium 4.0, Chloride 102, Carbon Dioxide 30, Anion Gap 11.0, BUN 17, Creatinine 0.90, Estimated Creat Clear 102, Estimated GFR 82, Est GFR ( Amer) 100, Glucose 87, Calcium 8.3 L Medical History: Medical History (Updated 11/14/24 @ 22:48 by Paolo Metcalf MD) COPD (chronic obstructive pulmonary disease) Depression Edema Peripheral vascular disease of lower extremity Pulmonary emphysema Smoking greater than 30 pack years BOB (obstructive sleep apnea) Daytime somnolence Dyspnea Gallstones Pericardial effusion Hypothyroidism Right carotid bruit Cardiomyopathy SOB (shortness of breath) Tobacco dependence syndrome Hypertensive heart disease Coronary arteriosclerosis Atrial fibrillation Assessment and Plan Assessment and plan all Dx Assessment and Plan for all problems:: Pharmacokinetic dosing service Objective: Age: 74 yo Serum creatinine: 0.9 mg/dL Height: 70.9 Inches Weight (kg): 113.262 Diagnosis: CELLULITIS Assessment: IBW (kg): 75.07 Dosing wt(kg): 113.262 Estimated Creatinine clearance (ml/min): 75.3 CRCL method: Cockcroft and Gault using ibw(default). Drug selected: Vancomycin Loading dose (mg): 2250 MG Vd (liters): 79.3 (factor used: 0.7 L/kg) Aquiles (hr-1): 0.067 Half life (hrs): 10.35 CLvanco=?? 5.313 L/hr Recommended dose: 2000 mg Interval: 18 hrs Infusion time (hrs): 2.0 Predicted peak (mcg/mL): 33.7 Predicted trough (mcg/mL): 11.54 Total body weight is being used for vancomycin dosing. Recommendations: Give Vancomycin 2000 mg q 18 hrs with an expected Cpeak of 33.7 mcg/ml and an expected Ctrough of 11.54 mcg/ml TO START 11/15/24 AT 17:00, PATIENT RECEIVED ONE TIME LOADING DOSE OF VANCOMYCIN 2250 MG IN THE ED 11/14/24 AT 23:06. AUC 0-24 /HERMINIA Data: HERMINIA 0.5 mcg/mL:?? AUC/HERMINIA:? 1003.8 HERMINIA 1.0 mcg/mL:?? AUC/HERMINIA:? 501.9 --------- HERMINIA 1.5 mcg/mL:?? AUC/HERMINIA:? 334.6 HERMINIA 2.0 mcg/mL:?? AUC/HERMINIA:? 251.0 Thank you for the consult
[2024-11-15] MEDS: HYDROCODONE/APAP 5/325 MG TABLET 1 TAB PO (08:11)
--- NOTE | 2024-11-15 08:52 | HMH.PHAINT1 ---
Pharmacy Intervention Comments: Home medication list verified using list from outpatient pharmacy and pt interview
--- NOTE | 2024-11-15 08:57 | CA_ITS ---
FINAL REPORT CLINICAL HISTORY: CELLULITIS LLE,HTN,PVD,SMOKER,PT ON COUMADIN FINDINGS: DUPLEX VENOUS SONOGRAPHY OF THE LEFT LOWER EXTREMITY Multiple transverse and longitudinal scans were performed of the femoropopliteal deep venous system, with augmentation and compression maneuvers. FINDINGS: Normal phasic flow was noted in the visualized deep venous system. No intraluminal increased echogenicity is noted to suggest thrombus. There is normal compression and augmentation of the venous structures. No abnormal venous collaterals are seen. There is an enlarged lymph node in the left groin, nonspecific and could be reactive or neoplastic. IMPRESSION: No evidence of deep venous thrombosis of the left lower extremity. Left groin enlarged lymph node could be reactive or neoplastic. Reviewed, Interpreted and Dictated by Aditi Elizabeth MD Transcribed by Cathryn Pina Authenticated and . [facility]
[2024-11-15 11:37] VITALS: BP 136/60; PULSE 69; RESP 18; TEMP 36.5; O2SAT 94
[2024-11-15 11:38] VITALS: PULSE 69
[2024-11-15] MEDS: DIGOXIN 0.125MG TABLET 125 MCG PO (11:38)
[2024-11-15] MEDS: LEVOTHYROXINE 137MCG (0.137MG) TAB 137 MCG PO (11:38)
[2024-11-15] MEDS: WARFARIN 2MG TABLET 4 MG PO (11:39)
[2024-11-15] MEDS: EMPAGLIFLOZIN 10MG TABLET 10 MG PO (11:39)
[2024-11-15] MEDS: TORSEMIDE 20MG TABLET 100 MG PO (11:39)
--- NOTE | 2024-11-15 11:56 | PC.NURSE ---
patient stated he took his own home ropinirole. patient also stated that was the only home medication he took. ordered ropinirole not given.
--- NOTE | 2024-11-15 12:18 | EXP.DC.SUM ---
General Admission date:: 11/14/24 HPI HPI HPI: Mr. Reid is a 74-year-old male presents to the ER with complaints of left lower extremity swelling. Patient has past medical history of COPD, emphysema, obstructive sleep apnea, hypothyroidism, hypertension, coronary artery disease, atrial fibrillation, and peripheral vascular disease. Patient states he noticed that his left leg started swelling yesterday. He states that tonight he was putting on his shoes and they were all tight so he decided to come and get evaluated in the ER. He denies any pain to left lower extremity. Reports chronic shortness of breath due to COPD. Patient denies fever/chills, cough, congestion, runny nose, chest pain, abdominal pain, nausea, vomiting, diarrhea, constipation, headache, lightheadedness, dizziness, or syncope. Patient reports he smokes 1.5 packs of cigarettes per day. Drinks 4-5 beers per week. Denies any recreational drug use. Hospital Course Hospital Course Hospital Course: Total time spent on discharge: 32 minutes on chart review, counseling, documentation, and direct care with patient. Exam Data for Last 24 hours Vital signs and Labs for Last 24 Hours: Temp Pulse Resp BP Pulse Ox O2 Del Method O2 Flow Rate 97.7 F 69 18 136/60 94 L Nasal Cannula 3 11/15/24 11:37 11/15/24 11:38 11/15/24 11:37 11/15/24 11:37 11/15/24 11:37 11/15/24 11:37 11/15/24 11:37 FiO2 3 11/15/24 04:00 Laboratory Results - last 24 hr 11/14/24 19:42: WBC 14.0 H, RBC 3.70 L, Hgb 10.9 L, Hct 34.0 L, MCV 91.9, MCH 29.5, MCHC 32.1, RDW 16.8, Plt Count 274, MPV 10.5 H, Neut % (Auto) 73.3, Lymph % (Auto) 15.9, Clark % (Auto) 6.8, Eos % (Auto) 1.6, Baso % (Auto) 0.6, Neut # (Auto) 10.2 H, Lymph # (Auto) 2.2, Clark # (Auto) 1.0, Eos # (Auto) 0.2, Baso # (Auto) 0.1, PT 21.6 H, INR 2.05 H, APTT 36.3 H, Sodium 140, Potassium 4.2, Chloride 100, Carbon Dioxide 29, Anion Gap 15.2 H, BUN 20, Creatinine 0.90, Estimated Creat Clear 104, Estimated GFR 82, Est GFR ( Amer) 100, Glucose 99, Calcium 8.4, Magnesium 2.1, Total Bilirubin 0.9, AST 34, ALT 27, Alkaline Phosphatase 78, Troponin I 0.01, NT-Pro-B Natriuret Pep 586 H, Total Protein 7.4, Albumin 4.2, Globulin 3.2, Albumin/Globulin Ratio 1.3, HCV Ab LIDIA w/Rflx PCR Qn Negative, HIV Ag/Ab Combo Qual Negative 11/14/24 20:58: Urine Color Yellow, Urine Appearance Clear, Urine pH 6.0, Ur Specific [place] 1.010, Urine Protein Negative, Urine Glucose (UA) 3+, Urine Ketones Negative, Urine Blood Negative, Urine Nitrate Negative, Urine Bilirubin Negative, Urine Urobilinogen 0.2, Ur Leukocyte Esterase Negative, Urine RBC None, Urine WBC Occasional, Ur Squamous Epith Cells None, Urine Bacteria None 11/14/24 23:55: Troponin I 0.02 11/15/24 02:44: Troponin I 0.01 11/15/24 05:31: WBC 14.4 H, RBC 3.43 L, Hgb 10.0 L, Hct 31.9 L, MCV 93.0, MCH 28.6, MCHC 30.7 L, RDW 16.8, Plt Count 233, MPV 10.5 H, Neut % (Auto) 74.1, Lymph % (Auto) 14.7, Clark % (Auto) 7.6, Eos % (Auto) 1.7, Baso % (Auto) 0.4, Neut # (Auto) 10.7 H, Lymph # (Auto) 2.1, Clark # (Auto) 1.1 H, Eos # (Auto) 0.2, Baso # (Auto) 0.1, Sodium 139, Potassium 4.0, Chloride 102, Carbon Dioxide 30, Anion Gap 11.0, BUN 17, Creatinine 0.90, Estimated Creat Clear 102, Estimated GFR 82, Est GFR ( Amer) 100, Glucose 87, Calcium 8.3 L I & O for Last 24 hours: Intake & Output 11/12/24 11/13/24 11/14/24 11/15/24 23:59 23:59 23:59 23:59 Intake Total 1140 / 1140 Output Total 1000 / 1000 Balance 140 / 140 Weight 115.212 kg 113.262 kg Results Data Completed and Pending Labs on day of discharge: Labs from last 24 hours 11/15/24 11/15/24 11/14/24 05:31 02:44 23:55 WBC 14.4 H RBC 3.43 L Hgb 10.0 L Hct 31.9 L MCV 93.0 MCH 28.6 MCHC 30.7 L RDW 16.8 Plt Count 233 MPV 10.5 H Neut % (Auto) 74.1 Lymph % (Auto) 14.7 Clark % (Auto) 7.6 Eos % (Auto) 1.7 Baso % (Auto) 0.4 Neut # (Auto) 10.7 H Lymph # (Auto) 2.1 Clark # (Auto) 1.1 H Eos # (Auto) 0.2 Baso # (Auto) 0.1 PT INR APTT Sodium 139 Potassium 4.0 Chloride 102 Carbon Dioxide 30 Anion Gap 11.0 BUN 17 Creatinine 0.90 Estimated Creat Clear 102 Estimated GFR 82 Est GFR ( Amer) 100 Glucose 87 Calcium 8.3 L Magnesium Total Bilirubin AST ALT Alkaline Phosphatase Troponin I 0.01 0.02 NT-Pro-B Natriuret Pep Total Protein Albumin Globulin Albumin/Globulin Ratio Urine Color Urine Appearance Urine pH Ur Specific [place] Urine Protein Urine Glucose (UA) Urine Ketones Urine Blood Urine Nitrate Urine Bilirubin Urine Urobilinogen Ur Leukocyte Esterase Urine RBC Urine WBC Ur Squamous Epith Cells Urine Bacteria HCV Ab LIDIA w/Rflx PCR Qn HIV Ag/Ab Combo Qual 11/14/24 11/14/24 20:58 19:42 WBC 14.0 H RBC 3.70 L Hgb 10.9 L Hct 34.0 L MCV 91.9 MCH 29.5 MCHC 32.1 RDW 16.8 Plt Count 274 MPV 10.5 H Neut % (Auto) 73.3 Lymph % (Auto) 15.9 Clark % (Auto) 6.8 Eos % (Auto) 1.6 Baso % (Auto) 0.6 Neut # (Auto) 10.2 H Lymph # (Auto) 2.2 Clark # (Auto) 1.0 Eos # (Auto) 0.2 Baso # (Auto) 0.1 PT 21.6 H INR 2.05 H APTT 36.3 H Sodium 140 Potassium 4.2 Chloride 100 Carbon Dioxide 29 Anion Gap 15.2 H BUN 20 Creatinine 0.90 Estimated Creat Clear 104 Estimated GFR 82 Est GFR ( Amer) 100 Glucose 99 Calcium 8.4 Magnesium 2.1 Total Bilirubin 0.9 AST 34 ALT 27 Alkaline Phosphatase 78 Troponin I 0.01 NT-Pro-B Natriuret Pep 586 H Total Protein 7.4 Albumin 4.2 Globulin 3.2 Albumin/Globulin Ratio 1.3 Urine Color Yellow Urine Appearance Clear Urine pH 6.0 Ur Specific [place] 1.010 Urine Protein Negative Urine Glucose (UA) 3+ Urine Ketones Negative Urine Blood Negative Urine Nitrate Negative Urine Bilirubin Negative Urine Urobilinogen 0.2 Ur Leukocyte Esterase Negative Urine RBC None Urine WBC Occasional Ur Squamous Epith Cells None Urine Bacteria None HCV Ab LIDIA w/Rflx PCR Qn Negative HIV Ag/Ab Combo Qual Negative DS: Diagnosis Discharge Diagnosis (1) Cellulitis of left leg: Status: Acute Code(s): L03.116 - Cellulitis of left lower limb (2) HTN (hypertension): Status: Chronic Code(s): I10 - Essential (primary) hypertension Qualifiers: Hypertension type: primary hypertension Qualified Code(s): I10 - Essential (primary) hypertension (3) HLD (hyperlipidemia): Status: Chronic Code(s): E78.5 - Hyperlipidemia, unspecified Qualifiers: Hyperlipidemia type: mixed hyperlipidemia Qualified Code(s): E78.2 - Mixed hyperlipidemia (4) Chronic obstructive lung disease: Status: Chronic Code(s): J44.9 - Chronic obstructive pulmonary disease, unspecified Qualifiers: COPD type: unspecified COPD Qualified Code(s): J44.9 - Chronic obstructive pulmonary disease, unspecified (5) Tobacco dependence syndrome: Status: Chronic Code(s): F17.200 - Nicotine dependence, unspecified, uncomplicated Meds Home Medications and Allergies Home Medications ?Medication ?Instructions ?Recorded ?Confirmed ?Type trazodone 50 mg tablet 50 mg PO HS PRN Insomnia 04/11/17 11/15/24 History gabapentin 300 mg capsule 300 mg PO TID 04/23/22 11/15/24 History ipratropium 0.5 mg-albuterol 3 mg 3 ml inhalation QID PRN shortness 07/20/23 11/15/24 Rx (2.5 mg base)/3 mL nebulization of breath or wheezing 90 days #270 soln mL tiotropium 2.5 mcg-olodaterol 2.5 2 puff inhalation DAILY 90 days #4 07/20/23 11/15/24 Rx mcg/actuation mist for inhalation grams (Stiolto Respimat) torsemide 100 mg tablet 100 mg PO DAILY #30 tabs 02/26/24 11/15/24 Rx warfarin 5 mg tablet 5 mg PO SUTUWETHSA 05/02/24 11/15/24 History empagliflozin 10 mg tablet 10 mg PO DAILY #30 tabs 07/29/24 11/15/24 Rx (Jardiance) levothyroxine 137 mcg tablet 137 mcg PO DAILY #90 tabs 09/03/24 11/15/24 Rx (Synthroid) atorvastatin 40 mg tablet 40 mg PO HS 11/15/24 11/15/24 History clopidogrel 75 mg tablet 75 mg PO DAILY 11/15/24 11/15/24 History cyclobenzaprine 10 mg tablet 10 mg PO HS 11/15/24 11/15/24 History digoxin 125 mcg (0.125 mg) tablet 125 mcg PO DAILY 11/15/24 11/15/24 History doxycycline hyclate 100 mg tablet 100 mg PO BID 9 days #18 tabs 11/15/24 Rx levofloxacin 750 mg tablet 750 mg PO DAILY 9 days #9 tabs 11/15/24 Rx losartan 100 mg tablet 100 mg PO DAILY 11/15/24 11/15/24 History potassium chloride 20 mEq 40 meq PO BID 11/15/24 11/15/24 History tablet,extended release(part/cryst) ropinirole 2 mg tablet 2 mg PO BID 11/15/24 11/15/24 History warfarin 4 mg tablet 4 mg PO MOFR 11/15/24 11/15/24 History New Prescriptions to Start Prescriptions: doxycycline hyclate Jung King levofloxacin Jung King Allergies Allergy/AdvReac Type Severity Reaction Status Date / Time No Known Allergies Allergy Verified 08/01/24 11:52 Discharge Plan Disposition Patient Disposition: Home, Self-Care Condition: Fair Follow up Plan Follow up with: Provider,Referral, [Primary Care Provider, Medical] - 11/18/24 Prescriptions/Medication Reconciliation: New doxycycline hyclate 100 mg Tablet 100 mg PO BID 9 Days Qty: 18 0RF levofloxacin 750 mg tablet 750 mg PO DAILY 9 Days Qty: 9 0RF Continued Stiolto Respimat 2.5-2.5 mcg/actuation mist 2 puff inhalation DAILY 90 Days Qty: 4 2RF ipratropium-albuterol 0.5 mg-3 mg(2.5 mg base)/3 mL solution for nebulization 3 ml inhalation QID PRN (Reason: shortness of breath or wheezing) 90 Days Qty: 270 3RF trazodone 50 mg tablet 50 mg PO HS PRN (Reason: Insomnia) warfarin 5 mg tablet 5 mg PO SUTUWETHSA Rx Instructions: MONDAY, MONDAY, torsemide 100 mg tablet 100 mg PO DAILY Qty: 30 11RF Jardiance 10 mg tablet 10 mg PO DAILY Qty: 30 6RF levothyroxine [Synthroid] 137 mcg tablet 137 mcg PO DAILY Qty: 90 3RF warfarin 4 mg tablet 4 mg PO MOFR Rx Instructions: Monday ropinirole 2 mg tablet 2 mg PO BID potassium chloride 20 mEq tablet,ER particles/crystals 40 meq PO BID losartan 100 mg tablet 100 mg PO DAILY digoxin 125 mcg (0.125 mg) tablet 125 mcg PO DAILY clopidogrel 75 mg tablet 75 mg PO DAILY cyclobenzaprine 10 mg tablet 10 mg PO HS Patient Comments: TAKE 1 TABLET BY MOUTH AT BEDTIME atorvastatin 40 mg tablet 40 mg PO HS gabapentin 300 mg capsule 300 mg PO TID Problem Reconciliation Problems Reviewed?: Yes Patient Discharge Instructions Additional Instructions: Please take warfarin 4 mg daily for the next 9 days while you are also on levofloxacin (your new antibiotic). Please check your PT/INR daily and ensure it is between 2 and 3. Patient Instructions: Cellulitis, Coumadin Vitamin K/ Diet Print Language: Irish Providers Primary Care Provider: Provider,Referral Admit Provider: Lenard Ferrari Attending Provider: Lenard Ferrari
[2024-11-15] MEDS: DOXYCYCLINE HYCL 100 MG TABLET PO (12:37)
[2024-11-15 12:51] LABS: Free T4 (Free Thyroxine) 1.23 ng/dl (0.78-2.19)
[2024-11-15 14:13] LABS: Thyroid Stimulating Hormone 10.00 uIU/mL (0.465-4.68)
--- NOTE | 2024-11-18 15:54 | SW/DCPLANNER ---
Spoke with patient on the phone. Patient stated that he is doing well. Patient stated that he is aware of his upcoming appointments. Patient stated that he was able to get his new medicine picked up from clinic pharmacy. Patient stated that he has no concerns or questions at this time. Randall Rock
== END 2024-11-15 12:45 | disposition home or self-care (01) ==
LOC: ER 23:28 → 2ND 23:37
PROVIDERS: Nurse Practitioner Family; Physician Assistant; Student in an Organized Health Care Education/Training Program; Admitting Provider Internal Medicine Adolescent Medicine; Emergency Provider Emergency Medicine; Visit Provider Internal Medicine Adolescent Medicine
DX: L03.116 Cellulitis of left lower limb (principal); I11.0 Hypertensive heart disease with heart failure; E78.2 Mixed hyperlipidemia; I50.9 Heart failure, unspecified; J44.9 Chronic obstructive pulmonary disease, unspecified; E89.0 Postprocedural hypothyroidism; I25.10 Atherosclerotic heart disease of native coronary artery without angina pectoris; I48.91 Unspecified atrial fibrillation; I73.9 Peripheral vascular disease, unspecified; F32.A Depression, unspecified; I42.9 Cardiomyopathy, unspecified; G25.81 Restless legs syndrome; K80.20 Calculus of gallbladder without cholecystitis without obstruction; F17.210 Nicotine dependence, cigarettes, uncomplicated; Z95.5 Presence of coronary angioplasty implant and graft; Z98.890 Other specified postprocedural states; Z79.02 Long term (current) use of antithrombotics/antiplatelets; Z79.01 Long term (current) use of anticoagulants; Z79.899 Other long term (current) drug therapy; Z79.890 Hormone replacement therapy
CPT/HCPCS: 96365; 96366; 96367; 36415; 71045; 75635; 80048; 80053; 81001; 83735; 83880; 84439; 84443; 84484; 85025; 85610; 85730; 86803; 87040; 87389; 93005; 93971; 99285; G0378; J0692; J3373; J7050; Q9967